=== PATIENT | male | born 1985 | race Caucasian/White ===

== ENCOUNTER 2020-02-14 15:47 | Inpatient (IN) | payer OTHER ==
[~2020-02-14] VITALS: Ht 182.9 cm; Wt 113.9 kg
[~2020-02-14 15:47] MED LIST: AMLO2.5T2; DIVA250T; GLIP5TAB13; LEVE1000 PO; PHEN100C4 PO; SYMBICORT
[2020-02-14 15:50] VITALS: BP_SYST 132
[2020-02-14] MEDS ORDERED: levETIRAcetam 1,000 MG in NS 100 ML IV ONE (16:15)
[2020-02-14 16:41] LABS: BASOPHILS # (AUTO) 0.1 K/uL (0.0-0.2); BASOPHILS % (AUTO) 1.4 % (0.0-2.0); EOSINOPHILS # (AUTO) 0.1 K/uL (0.0-0.4); EOSINOPHILS % (AUTO) 2.2 % (0.0-4.0); HEMATOCRIT 44.2 % (36-54); HEMOGLOBIN 14.9 g/dL (14.0-18.0); LYMPHOCYTES # (AUTO) 3.4 K/uL (1.0-5.5); LYMPHOCYTES % (AUTO) 53.5 % (20.5-51.5); MEAN CORPUSCULAR HEMOGLOBIN 29 pg (27-31); MEAN CORPUSCULAR HGB CONC 34 % (32-36); MEAN CORPUSCULAR VOLUME 87 fL (79.0-98.0); MONOCYTES # (AUTO) 0.4 K/uL (0.0-1.0); NEUTROPHILS # (AUTO) 2.3 K/uL (1.8-7.7); NEUTROPHILS % (AUTO) 35.9 % (40.0-70.0); PLATELET COUNT (AUTO) 295 K/uL (130-430); RED BLOOD CELL COUNT(AUTO) 5.07 MIL/uL (4.2-6.2); RED CELL DISTRIBUTION WIDTH 13.4 % (9.0-15.0); WHITE BLOOD COUNT (AUTO) 6.4 K/uL (4.8-10.8)
[2020-02-14 16:43] LABS: CALCIUM 8.9 mg/dL (8.4-11.0); CREATININE 0.92 mg/dL (0.55-1.30); POTASSIUM 3.7 mmol/L (3.5-5.1)
[2020-02-14] MEDS ORDERED: LORazepam 2 MG/ML VIAL IVP ONE (16:45)
[2020-02-14] MEDS ORDERED: ONDANSETRON HCL 4 MG/2 ML VIAL IVP ONE (16:45)
[2020-02-14 16:49] LABS: ALBUMIN 3.7 g/dL (3.4-4.8); TOTAL BILIRUBIN 0.3 mg/dL (0.0-1.0)
[2020-02-14] MEDS ORDERED: NACL 0.9% 1,000 ML IV SCH (18:59)
[2020-02-14] MEDS ORDERED: ONDANSETRON HCL 4 MG/2 ML VIAL IVP PRN (19:00)
[2020-02-14] MEDS ORDERED: HYDROcodone/ACETAMIN 5-325 MG TAB (NORCO/ VICODIN) PO PRN (19:00)
[2020-02-14] MEDS ORDERED: LORazepam 2 MG/ML VIAL IM PRN (19:15)
[2020-02-14] MEDS ORDERED: INSULIN REGULAR, HUMAN 100 UNITS/ML, 10 ML VIAL (humuLIN R) SUBCUT PRN (19:15)
[2020-02-14] MEDS ORDERED: D5W 1,000 ML IV PRN (19:30)
[2020-02-14] MEDS ORDERED: DEXTROSE 50%-WATER 50 ML DISP.SYRIN IVP PRN (19:30)
[2020-02-14] MEDS ORDERED: GLUCOSE 15 GM GEL (in 37.5 GM TUBE) PO PRN (19:30)
[2020-02-14] MEDS ORDERED: PHENYTOIN 100 MG CAPSULE PO SCH (21:00)
[2020-02-14 22:31] VITALS: BP_SYST 137
[2020-02-15] MEDS ORDERED: amLODIPine BESYLATE 5 MG TABLET PO SCH (09:00)
[2020-02-15] MEDS ORDERED: levETIRAcetam 500 MG TABLET PO SCH (09:00)
== END 2020-02-14 22:45 | disposition left against medical advice (07) | DRG 101 ==
LOC: SED 15:47 → STU 17:44
PROVIDERS: ADMIT Internal Medicine Hospice and Palliative Medicine; ATTEND Internal Medicine Hospice and Palliative Medicine
DX: G40.909 Epilepsy, unspecified, not intractable, without status epilepticus (principal); R07.89 Other chest pain; E11.9 Type 2 diabetes mellitus without complications; J45.909 Unspecified asthma, uncomplicated; K21.9 Gastro-esophageal reflux disease without esophagitis; E03.9 Hypothyroidism, unspecified; Z53.29 Procedure and treatment not carried out because of patient's decision for other reasons; Z88.0 Allergy status to penicillin; Z88.1 Allergy status to other antibiotic agents; Z88.8 Allergy status to other drugs, medicaments and biological substances; Z79.899 Other long term (current) drug therapy
CPT/HCPCS: 36415; 80053; 85025; 93005; 96365; 96367; 96375; 99291; G0378; J1815; J1953; J2060; J2405; J7030

== ENCOUNTER 2020-02-18 05:37 | Emergency (ER) | payer OTHER ==
[~2020-02-18] VITALS: Ht 185.4 cm; Wt 83.9 kg
[2020-02-18 05:56] VITALS: BP_SYST 154
--- NOTE | 2020-02-18 05:56 | NUR ---
Patient to ER bed 03 to gown for evaluation. Side rails up. Report given to GLORIA COX
--- NOTE | 2020-02-18 06:08 | NUR ---
Dr. Barraza bedside for pt eval
--- NOTE | 2020-02-18 06:12 | NUR ---
Pt BIB family to ED C/O DIFFUSE ABDOMINAL PAIN STARTING LAST NIGHT REPORTS HX OF CHROHNS. No other complaints noted VSS no s/s of acute distress Resting on gurney rails up
--- NOTE | 2020-02-18 06:47 | NUR ---
Pt taken to Radiology in stable condition
[2020-02-18] MEDS ORDERED: NACL 0.9% 1,000 ML IV ONE (07:00)
--- NOTE | 2020-02-18 07:00 | NUR ---
Pt back from radiology well tolerated
[2020-02-18 08:02] LABS: EOSINOPHILS # (AUTO) 0.1 K/uL (0.0-0.4); EOSINOPHILS % (AUTO) 2.5 % (0.0-4.0); HEMOGLOBIN 14.8 g/dL (14.0-18.0); LYMPHOCYTES # (AUTO) 1.7 K/uL (1.0-5.5); LYMPHOCYTES % (AUTO) 36.6 % (20.5-51.5); MEAN CORPUSCULAR HEMOGLOBIN 30 pg (27-31); MEAN CORPUSCULAR HGB CONC 35 % (32-36); MEAN CORPUSCULAR VOLUME 86 fL (79.0-98.0); MONOCYTES # (AUTO) 0.3 K/uL (0.0-1.0); MONOCYTES % (AUTO) 7.4 % (1.7-9.3); NEUTROPHILS # (AUTO) 2.4 K/uL (1.8-7.7); NEUTROPHILS % (AUTO) 52.5 % (40.0-70.0); PLATELET COUNT (AUTO) 249 K/uL (130-430); RED BLOOD CELL COUNT(AUTO) 4.88 MIL/uL (4.2-6.2); RED CELL DISTRIBUTION WIDTH 13.2 % (9.0-15.0); WHITE BLOOD COUNT (AUTO) 4.5 K/uL (4.8-10.8)
[2020-02-18 08:22] LABS: PROTHROMBIN TIME 9.8 SECS (9.5-12.5)
[2020-02-18 08:34] LABS: CALCIUM 9.7 mg/dL (8.4-11.0); CREATININE 0.78 mg/dL (0.55-1.30); POTASSIUM 3.6 mmol/L (3.5-5.1)
[2020-02-18 08:40] LABS: ALBUMIN 3.6 g/dL (3.4-4.8); TOTAL BILIRUBIN 0.3 mg/dL (0.0-1.0)
--- NOTE | 2020-02-18 08:40 | NUR ---
Pt resting in [facility] at this time, receiving IV fluids.
[2020-02-18] MEDS ORDERED: MORPHINE 4 MG/ML INJ. SYRINGE IVP ONE (09:00)
[2020-02-18 10:29] VITALS: BP_SYST 143
--- NOTE | 2020-02-18 10:30 | NUR ---
Patient given written and verbal discharge instructions and verbalizes understanding. ER MD discussed with patient the results and treatment provided. Patient in stable condition. ID arm band removed. IV catheter removed intact and dressing applied, no active bleeding. Rx of norco, prednisone, motrin given. Patient educated on pain management and to follow up with PMD. Pain Scale 0. Opportunity for questions provided and answered. Medication side effect fact sheet provided.
== END 2020-02-18 10:29 | disposition home or self-care (01) ==
LOC: SED 05:37
DX: K50.90 Crohn's disease, unspecified, without complications (principal); R10.9 Unspecified abdominal pain; R19.7 Diarrhea, unspecified; E11.9 Type 2 diabetes mellitus without complications; E03.9 Hypothyroidism, unspecified; J45.909 Unspecified asthma, uncomplicated; K21.9 Gastro-esophageal reflux disease without esophagitis; Z88.0 Allergy status to penicillin; Z88.1 Allergy status to other antibiotic agents
CPT/HCPCS: 36415; 74176; 80053; 82150; 83690; 85025; 85610; 96361; 96374; 99284; J2270; J7030

== ENCOUNTER 2020-06-11 05:03 | Inpatient (IN) | payer OTHER, SELFPAY ==
[~2020-06-11] VITALS: Ht 195.6 cm; Wt 99.8 kg
[2020-06-11 05:03] VITALS: BP_SYST 166
[~2020-06-11 05:03] MED LIST changes: +LEVE500T9 PO; +LOSA100T23 PO; +METO25TA6 PO; +NOR10 PO
--- NOTE | 2020-06-11 05:10 | NUR ---
Patient to ER bed 1 to gown for evaluation. Side rails up.
--- NOTE | 2020-06-11 05:11 | NUR ---
Seizure precautions in place. Seizure pads applied to gurney. Side rails up.
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
--- NOTE | 2020-06-11 05:12 | NUR ---
ER Dr. Barraza at bedside examining patient.
[2020-06-11] MEDS ORDERED: NACL 0.9% 1,000 ML IV ONE (05:15)
--- NOTE | 2020-06-11 05:20 | NUR ---
# 20 gauge angiocath placed to LADC. Use of asceptic technique. Opsite placed over site. Blood return noted. Blood, blood cultures, lactic for lab drawn from site. Flushed with 10 cc of normal saline. No evidence of infiltration noted. Patient tolerated well.
--- NOTE | 2020-06-11 05:28 | NUR ---
patient experienced witnessed tonic clonic seizure for about 30 seconds long. aware. pt turned to side immediately. pt began dry heiving afterwards, and was suctioned. pt on NRB at 16L O2 with O2 sat of 100%.
[2020-06-11 05:34] LABS: BASOPHILS # (AUTO) 0.2 K/uL (0.0-0.2); BASOPHILS % (AUTO) 3.2 % (0.0-2.0); EOSINOPHILS # (AUTO) 0.2 K/uL (0.0-0.4); EOSINOPHILS % (AUTO) 4.4 % (0.0-4.0); HEMATOCRIT 43.6 % (36-54); LYMPHOCYTES # (AUTO) 2.5 K/uL (1.0-5.5); LYMPHOCYTES % (AUTO) 49.3 % (20.5-51.5); MEAN CORPUSCULAR HEMOGLOBIN 30 pg (27-31); MEAN CORPUSCULAR HGB CONC 35 % (32-36); MEAN CORPUSCULAR VOLUME 87 fL (79.0-98.0); MONOCYTES # (AUTO) 0.4 K/uL (0.0-1.0); MONOCYTES % (AUTO) 7.6 % (1.7-9.3); NEUTROPHILS # (AUTO) 1.8 K/uL (1.8-7.7); NEUTROPHILS % (AUTO) 35.5 % (40.0-70.0); PLATELET COUNT (AUTO) 292 K/uL (130-430); RED BLOOD CELL COUNT(AUTO) 5.01 MIL/uL (4.2-6.2); RED CELL DISTRIBUTION WIDTH 13.6 % (9.0-15.0); WHITE BLOOD COUNT (AUTO) 5.1 K/uL (4.8-10.8)
--- NOTE | 2020-06-11 05:38 | NUR ---
patient experienced second witnessed tonic clonic seizure for about 30 seconds long. aware. pt turned to side immediately. pt on NRB at 16L O2 with O2 sat of 98%.
--- NOTE | 2020-06-11 05:40 | NUR ---
1mg ativan IVP given per md order.
[2020-06-11 05:44] LABS: ANION GAP 10 (5-15); CALCIUM 8.9 mg/dL (8.4-11.0); CHLORIDE 100 mmol/L (98-107); CREATININE 0.82 mg/dL (0.55-1.30); GLUCOSE 96 mg/dL (70-99); POTASSIUM 3.9 mmol/L (3.5-5.1); SODIUM SERUM 138 mmol/L (136-145); UREA NITROGEN, BLOOD 12 mg/dL (8-21)
[2020-06-11 05:45] LABS: GFR AFRICAN AMERICAN 140 mL/min (>90)
[2020-06-11] MEDS ORDERED: levETIRAcetam 1,000 MG in NS 100 ML IV ONE (05:45)
--- NOTE | 2020-06-11 05:46 | NUR ---
patient experienced third witnessed tonic clonic seizure for about 15 seconds long. aware. pt turned to side immediately. pt on NRB at 16L O2 with O2 sat of 99%.
[2020-06-11 05:53] LABS: ALANINE AMINOTRANSFERASE 101 U/L (12-78); ALBUMIN 4.2 g/dL (3.4-4.8); ALCOHOL, BLOOD 238 mg/dL (<10); ASPARTATE AMINOTRANSFERASE 53 U/L (10-37); TOTAL BILIRUBIN 0.3 mg/dL (0.0-1.0)
--- NOTE | 2020-06-11 05:54 | NUR ---
patient experienced witnessed fourth tonic clonic seizure for about 60 seconds long. aware. pt turned to side immediately. pt on NRB at 16L O2 with O2 sat of 100%.
[2020-06-11] MEDS ORDERED: LORazepam 2 MG/ML VIAL ONE (05:59)
[2020-06-11] MEDS ORDERED: LORazepam 2 MG/ML VIAL IVP ONE ×2 (06:00→06:30)
[2020-06-11] MEDS ORDERED: DIAZEPAM 10 MG/2 ML DISP.SYRIN IVP ONE (06:00)
--- NOTE | 2020-06-11 06:26 | NUR ---
checked every pyxis in the hospital, no Valium 10mg/2ml available. aware.
--- NOTE | 2020-06-11 06:27 | NUR ---
radiology at bedside for chest xray.
--- NOTE | 2020-06-11 06:43 | NUR ---
pt verbalized wanting to pee in urinal. pt still drowsy and in and out of sleep.
--- NOTE | 2020-06-11 06:50 | NUR ---
Patient transported to radiology via gurney, accompanied by 2 RNS and
--- NOTE | 2020-06-11 06:59 | NUR ---
patient experienced fifth witnessed tonic clonic seizure for about 30 seconds long. MD aware. pt turned to side immediately.
--- NOTE | 2020-06-11 07:02 | NUR ---
4mg Ativan given IVP per MD order.
--- NOTE | 2020-06-11 07:06 | NUR ---
patient experienced sixth witnessed tonic clonic seizure for about 15 seconds long. MD aware. pt turned to side immediately.
--- NOTE | 2020-06-11 07:20 | NUR ---
patient returned from radiology. placed on poultry offal worker.
--- NOTE | 2020-06-11 07:20 | NUR ---
Report received from Emma CASTRO. Pt just returned from CT scan,
--- NOTE | 2020-06-11 07:23 | NUR ---
report given to GLORIA Wilkins for continuation care.
--- NOTE | 2020-06-11 07:30 | NUR ---
# 22 gauge angiocath placed to right index finger. Use of asceptic technique. Opsite placed over site. Blood return noted. Blood for lab drawn from site. Flushed with 10 cc of normal saline. No evidence of infiltration noted. Patient tolerated well.
[2020-06-11 07:52] LABS: BILIRUBIN,URINE NEGATIVE (NEGATIVE); BLOOD, URINE NEGATIVE (NEGATIVE); CLARITY/URINE CLEAR (CLEAR); COLOR,URINE YELLOW (YELLOW); GLUCOSE,URINE NEGATIVE (NEGATIVE); KETONES,URINE NEGATIVE (NEGATIVE); LEUKOCYTE ESTERASE ,URINE NEGATIVE (NEGATIVE); NITRITE, URINE NEGATIVE (NEGATIVE); PH,URINE 5.5 (5.0-8.0); PROTEIN URINE NEGATIVE (NEGATIVE); UROBILINOGEN,URINE 0.2 (0.2-1.0)
[2020-06-11 08:07] LABS: BARBITURATE, URINE NEGATIVE (NEG <=200); BENZODIAZEPINE, URINE POSITIVE (NEG <=150); CANNABINOID, URINE NEGATIVE (NEG <=50); COCAINE, URINE NEGATIVE (NEG <=150); METHAMPHETAMINES SCREEN,URINE NEGATIVE (NEG <=500); OPIATE, URINE NEGATIVE (NEG <=100); PHENCYCLIDINE SCREEN,URINE NEGATIVE (NEG <=25); UR TRICYCLIC ANTIDEPRESSANTS NEGATIVE (NEG <=300); URINE AMPHETAMINE NEGATIVE (NEG <=500); URINE METHADONE NEGATIVE (NEG <=200); URINE OXYCODONE SCREEN NEGATIVE (NEG <=100); URINE PROPOXYPHENE SCREEN NEGATIVE (NEG <=300)
--- NOTE | 2020-06-11 08:10 | NUR ---
Covid swab collected and sent to the lab
--- NOTE | 2020-06-11 09:19 | NUR ---
Medication reconciliation completed with information provided by pt's medical record. Any prior medication reconciliation on file was reviewed and corrected.
[2020-06-11] MEDS ORDERED: FOLIC ACID 1 MG, THIAMINE HCL 100 MG, MAGNESIUM SULFATE 1 GM, MVI 10 ML in NACL 0.9% 1,... IV ONE (11:15)
[2020-06-11] MEDS ORDERED: LORazepam 2 MG/ML VIAL IVP PRN ×3 (11:15→17:15)
--- NOTE | 2020-06-11 11:20 | NUR ---
called for a tele bed, waiting a bed assignment.
--- NOTE | 2020-06-11 12:27 | NUR ---
Patient will be admitted to care of Dr. Walker. Admitted to tele unit. Will go to room 106-a. Belongings list completed. Complete and up to date summary report printed. SBAR report to be given at bedside with opportunity for questions. Bedside report to be given. IV 20g LAC and 22g R index finger patent and infusing well.
--- NOTE | 2020-06-11 12:46 | NUR ---
Admission Note Received patient from ER with diagnosis of etoh,intoxicationaloc,uncontrolled seizures. Initial Plan of Care discussed-patient verbalized understanding. Oriented to room, call light, pain management and safety.
[2020-06-11 12:52] VITALS: BP_SYST 141
[2020-06-11 12:55] VITALS: BP_SYST 128; BP_SYST 141
[2020-06-11] MEDS ORDERED: FOLIC ACID 1 MG, MVI 10 ML in NACL 0.9% 1,000 ML IV ONE (13:00)
[2020-06-11] MEDS ORDERED: THIAMINE HCL 100 MG, MAGNESIUM SULFATE 1 GM in NS 100 ML IV ONE (13:00)
--- NOTE | 2020-06-11 13:02 | NUR ---
seizure pt experienced witnessed tonic clonic seizure last about 40 sec. pt turned to side. seizure pads in placed. Ativan 1 mg ivp given as ordered. o2 saturation 98%.will continue to monitor
--- NOTE | 2020-06-11 13:09 | NUR ---
pt drowsy responding to verbal stimuli.o2 sat 99% on 4 l nc.bp 144/78.pt stated i am tired. not in acute distress. will continue to monmitor
--- NOTE | 2020-06-11 14:20 | NUR ---
seizure another seizure witnessed last around 45 sec. pt turned .to side. not in acute distress. o2 saturation 96% on 4 lnc.rodney continue to monitor
--- NOTE | 2020-06-11 14:22 | NUR ---
pt sleeping drowsy easily aroused. ivf infusing well. no seizure activity noted. o2 saturation 96%.seizure precautions in place. pt received ativan 1302. noticed ativan order for every [address] higuera for ativan order
--- NOTE | 2020-06-11 14:27 | NUR ---
PAGED DR JUANY LAST SPOKE TO JANE
--- NOTE | 2020-06-11 14:52 | NUR ---
rounds pt stable not in acute distress. no seizure activity noted. resting comfortably. dr higuera informed for pt'S seizure activity. new order received
--- NOTE | 2020-06-11 14:57 | NUR ---
HIGH ALERT NOTE: Called Dr. higuera back at [phone] within the medical roster to verify physician authenticity.
[2020-06-11] MEDS ORDERED: ONDANSETRON HCL 4 MG/2 ML VIAL IVP PRN (15:15)
[2020-06-11] MEDS ORDERED: chlordiazePOXIDE HCL 25 MG CAPSULE PO ONE (15:15)
[2020-06-11] MEDS ORDERED: PANTOPRAZOLE SODIUM 40 MG/VIAL (PROTONIX) IVP ONE (15:15)
[2020-06-11] MEDS ORDERED: KCL 20 mEq in D5/0.45NS 1000mL 1,000 ML IV SCH (15:15)
--- NOTE | 2020-06-11 15:27 | NUR ---
CONSULT NEUROLOGY SEIZURES CASEY SHAIKH TEXT MESSAGE SENT TO DR PENG
[2020-06-11 15:37] VITALS: BP_SYST 141
--- NOTE | 2020-06-11 15:57 | NUR ---
HIGH ALERT NOTE: Called Dr. kalen magallon [phone] identified within the medical roster to verify physician authenticity. Addendum: 06/11/20 at 1618 by Elizabeth Martinez RN above notes for 1457 06/11/20
[2020-06-11] MEDS ORDERED: cefTRIAXone 1 GM in D5W 50 ML IV SCH (16:00)
[2020-06-11 16:10] VITALS: BP_SYST 128
--- NOTE | 2020-06-11 17:10 | NUR ---
AMA: Patient does not wish to proceed with medical care recommended by Dr Walker and would like to leave without being seen by the physician. patient stated he feels a lot better . Patient given information related to possible complications, up to and including , which could occur as a result of leaving hospital at this time. Patient verbalizes understanding of risks involved leaving against medical advice. Patient has signed AMA form.
[2020-06-11] MEDS ORDERED: ALBUTEROL SULFATE 0.083% 2.5 MG/3 ML VIAL.NEB INH SCH (19:00)
[2020-06-11] MEDS ORDERED: chlordiazePOXIDE HCL 25 MG CAPSULE PO SCH (21:00)
[2020-06-12] MEDS ORDERED: PANTOPRAZOLE SODIUM 40 MG/VIAL (PROTONIX) IVP SCH (09:00)
== END 2020-06-11 17:07 | disposition left against medical advice (07) | DRG 101 ==
LOC: SED 05:03 → MERGE 11:15 → STU 11:15
PROVIDERS: ADMIT Internal Medicine; ATTEND Internal Medicine
DX: G40.901 Epilepsy, unspecified, not intractable, with status epilepticus (principal); I10 Essential (primary) hypertension; Z20.828 Contact with and (suspected) exposure to other viral communicable diseases; Z53.29 Procedure and treatment not carried out because of patient's decision for other reasons; Z88.0 Allergy status to penicillin; Z91.018 Allergy to other foods; Z79.899 Other long term (current) drug therapy
CPT/HCPCS: 36415; 70450-TC; 71045; 72125-TC; 80053; 80307; 81003; 84484; 85025; 87040-TC; 94760; 96361; 96365; 96375; 99285; G0378; G0482; J0696; J1953; J2060; J3411; J3475; J3490; J7030; J7060; J7613

== ENCOUNTER 2020-06-29 01:28 | Emergency (ER) | payer OTHER, SELFPAY ==
[~2020-06-29] VITALS: Ht 185.4 cm; Wt 117.9 kg
[2020-06-29 01:28] VITALS: BP_SYST 150
--- NOTE | 2020-06-29 01:30 | NUR ---
Patient to ER bed 6 to gown for evaluation. Side rails up.
--- NOTE | 2020-06-29 01:50 | NUR ---
Dr. [facility] for pt eval
--- NOTE | 2020-06-29 02:00 | NUR ---
Pt ALOKA to ED with history of alcohol dependence who presents emergency department because of altered mental status. Apparently, patient was found at the [employer] seizing multiple times. Patient denies taking his antiepileptic medications
[2020-06-29] MEDS ORDERED: NACL 0.9% 3,000 ML IV ONE (02:15)
[2020-06-29 02:58] LABS: BASOPHILS # (AUTO) 0.1 K/uL (0.0-0.2); BASOPHILS % (AUTO) 0.9 % (0.0-2.0); EOSINOPHILS # (AUTO) 0.2 K/uL (0.0-0.4); EOSINOPHILS % (AUTO) 2.6 % (0.0-4.0); HEMATOCRIT 40.6 % (36-54); HEMOGLOBIN 13.6 g/dL (14.0-18.0); LYMPHOCYTES # (AUTO) 2.9 K/uL (1.0-5.5); LYMPHOCYTES % (AUTO) 45.6 % (20.5-51.5); MEAN CORPUSCULAR HEMOGLOBIN 29 pg (27-31); MEAN CORPUSCULAR HGB CONC 34 % (32-36); MEAN CORPUSCULAR VOLUME 87 fL (79.0-98.0); MONOCYTES # (AUTO) 0.5 K/uL (0.0-1.0); MONOCYTES % (AUTO) 7.2 % (1.7-9.3); NEUTROPHILS # (AUTO) 2.7 K/uL (1.8-7.7); NEUTROPHILS % (AUTO) 43.7 % (40.0-70.0); PLATELET COUNT (AUTO) 335 K/uL (130-430); RED BLOOD CELL COUNT(AUTO) 4.65 MIL/uL (4.2-6.2); RED CELL DISTRIBUTION WIDTH 13.8 % (9.0-15.0); WHITE BLOOD COUNT (AUTO) 6.3 K/uL (4.8-10.8)
[2020-06-29] MEDS ORDERED: ACETAMINOPHEN 500 MG TABLET PO ONE (03:00)
--- NOTE | 2020-06-29 03:00 | NUR ---
VSS no s/s of acute distress Resting on gurney rails up
[2020-06-29 03:14] LABS: CALCIUM 8.9 mg/dL (8.4-11.0); CREATININE 0.84 mg/dL (0.55-1.30); POTASSIUM 3.6 mmol/L (3.5-5.1)
[2020-06-29 03:21] LABS: ALBUMIN 3.8 g/dL (3.4-4.8); TOTAL BILIRUBIN 0.1 mg/dL (0.0-1.0)
[2020-06-29] MEDS ORDERED: levETIRAcetam 500 MG TABLET PO ONE (04:00)
[2020-06-29 04:15] VITALS: BP_SYST 150
--- NOTE | 2020-06-29 04:15 | NUR ---
Patient given written and verbal discharge instructions and verbalizes understanding. ER MD discussed with patient the results and treatment provided. Patient in stable condition. ID arm band removed. IV catheter removed intact and dressing applied, no active bleeding. Rx of Keppra given. Patient educated on pain management and to follow up with PMD. Pain Scale 0/10 Opportunity for questions provided and answered. Medication side effect fact sheet provided.
[2020-06-29] MEDS ORDERED: LORazepam 1 MG TABLET PO ONE (04:45)
== END 2020-06-29 04:15 | disposition home or self-care (01) ==
LOC: SED 01:28
DX: F10.129 Alcohol abuse with intoxication, unspecified (principal); I10 Essential (primary) hypertension; E11.9 Type 2 diabetes mellitus without complications; K21.9 Gastro-esophageal reflux disease without esophagitis; E03.9 Hypothyroidism, unspecified; J45.909 Unspecified asthma, uncomplicated; Z71.6 Tobacco abuse counseling; Z79.899 Other long term (current) drug therapy; Z88.0 Allergy status to penicillin; Z88.1 Allergy status to other antibiotic agents; Z91.018 Allergy to other foods
CPT/HCPCS: 36415; 80053; 85025; 96360; 99284; G0482; J7030

== ENCOUNTER 2020-07-23 14:01 | Emergency (ER) | payer OTHER, SELFPAY ==
[~2020-07-23] VITALS: Ht 182.9 cm; Wt 90.7 kg
[2020-07-23 14:01] VITALS: BP_SYST 142
--- NOTE | 2020-07-23 14:01 | NUR ---
Patient triaged and placed on wall. VSS and patient appears in no acute distress at this time. Accompanied by assembler small products, awaiting available bed, and MD notified of need for MSE.
[2020-07-23] MEDS ORDERED: LORazepam 2 MG/ML VIAL ONE (14:11)
[2020-07-23] MEDS ORDERED: LORazepam 2 MG/ML VIAL IVP ONE (14:15)
--- NOTE | 2020-07-23 14:15 | NUR ---
Patient to ER bed 7 to gown for evaluation. Side rails up. Report given to GLORIA Watt.
--- NOTE | 2020-07-23 14:15 | NUR ---
WHILE WAITING IN ER SEIZURE ACTIVITY ON MEDICHardeep GAMBOAJARED. PLACED IN ROOM 7 ON MONITOR. RECOVED AND ALERT. NO DISTRESS
--- NOTE | 2020-07-23 14:38 | NUR ---
OFF TO CT. STEADY GAIT, NO DISTRESS
[2020-07-23 14:39] LABS: BASOPHILS # (AUTO) 0.1 K/uL (0.0-0.2); BASOPHILS % (AUTO) 1.3 % (0.0-2.0); EOSINOPHILS # (AUTO) 0.2 K/uL (0.0-0.4); EOSINOPHILS % (AUTO) 3.5 % (0.0-4.0); HEMATOCRIT 40.5 % (36-54); HEMOGLOBIN 13.9 g/dL (14.0-18.0); LYMPHOCYTES # (AUTO) 2.5 K/uL (1.0-5.5); LYMPHOCYTES % (AUTO) 41.8 % (20.5-51.5); MEAN CORPUSCULAR HEMOGLOBIN 30 pg (27-31); MEAN CORPUSCULAR HGB CONC 34 % (32-36); MEAN CORPUSCULAR VOLUME 88 fL (79.0-98.0); MONOCYTES # (AUTO) 0.5 K/uL (0.0-1.0); MONOCYTES % (AUTO) 8.1 % (1.7-9.3); NEUTROPHILS # (AUTO) 2.7 K/uL (1.8-7.7); NEUTROPHILS % (AUTO) 45.3 % (40.0-70.0); PLATELET COUNT (AUTO) 344 K/uL (130-430); RED BLOOD CELL COUNT(AUTO) 4.61 MIL/uL (4.2-6.2); RED CELL DISTRIBUTION WIDTH 14.1 % (9.0-15.0); WHITE BLOOD COUNT (AUTO) 5.9 K/uL (4.8-10.8)
[2020-07-23 14:54] LABS: CREATININE 0.92 mg/dL (0.55-1.30); POTASSIUM 3.6 mmol/L (3.5-5.1)
[2020-07-23 15:09] LABS: TOTAL BILIRUBIN 0.2 mg/dL (0.0-1.0)
[2020-07-23] MEDS ORDERED: LORA-259 PO (15:37)
--- NOTE | 2020-07-23 16:33 | NUR ---
PT CALM, ALERT, NO DITREASS. EASILY AROUSED, SR ON MONITOR NO ECTOPY
[2020-07-23 17:20] VITALS: BP_SYST 109
--- NOTE | 2020-07-23 17:21 | NUR ---
Patient given written and verbal discharge instructions and verbalizes understanding. ER MD discussed with patient the results and treatment provided. Patient in stable condition. ID arm band removed. IV catheter removed intact and dressing applied, no active bleeding. Patient educated on pain management and to follow up with PMD. Pain Scale . Opportunity for questions provided and answered. Medication side effect fact sheet provided.
== END 2020-07-23 17:20 | disposition home or self-care (01) ==
LOC: SED 14:01
DX: G40.909 Epilepsy, unspecified, not intractable, without status epilepticus (principal); I10 Essential (primary) hypertension; E11.9 Type 2 diabetes mellitus without complications; J45.909 Unspecified asthma, uncomplicated; K21.9 Gastro-esophageal reflux disease without esophagitis; E03.9 Hypothyroidism, unspecified; Z79.899 Other long term (current) drug therapy; Z88.0 Allergy status to penicillin; Z88.1 Allergy status to other antibiotic agents; Z91.018 Allergy to other foods
CPT/HCPCS: 36415; 80053; 85025; 96374; 99291; J2060

== ENCOUNTER 2020-08-22 05:05 | Emergency (ER) | payer MEDICAID, SELFPAY ==
[~2020-08-22] VITALS: Ht 182.9 cm; Wt 90.7 kg
[2020-08-22 05:05] VITALS: BP_SYST 150
[~2020-08-22 05:05] MED LIST changes: +LORA-259 PO
--- NOTE | 2020-08-22 05:05 | NUR ---
Pt BIB ALS r/t seizure episode. Pt was found on the ground outside of his hotel in a post ictal state. Upon arrival, ALS agreed to keep pt in rig until COVID-Aura antigen test results are released for proper placement of pt in ER. Pt AAOx3, even and non-labored respirations, no seizure activity observed at this time. Pt in stable condition, on stretcher in ambulance with squad 64 crew.
--- NOTE | 2020-08-22 05:15 | NUR ---
While attempting PIV access, pt experienced a Grand-Mal seizure activity lasting ~2 minutes.
[2020-08-22] MEDS ORDERED: LORazepam 2 MG/ML VIAL ONE ×2 (05:32→06:27)
[2020-08-22] MEDS ORDERED: LORazepam 2 MG/ML VIAL IM ONE (05:35)
--- NOTE | 2020-08-22 05:35 | NUR ---
Pt given Ativan 1 mg IM to right deltoid per order of Dr. Barraza.
--- NOTE | 2020-08-22 05:45 | NUR ---
# 20 gauge angiocath placed to RFA. Use of asceptic technique. Opsite placed over site. Blood return noted. Blood for lab drawn from site. Flushed with 10 cc of normal saline. No evidence of infiltration noted. Patient tolerated well.
--- NOTE | 2020-08-22 05:47 | NUR ---
Pt experienced Grand Mal seizure lasting ~ 1 min.
--- NOTE | 2020-08-22 06:00 | NUR ---
Pt placed to ER hallway 1, to campus monitor, supplemental O2 at 2 LPM/SFM. Pt resting quietly in post-ictal state.
--- NOTE | 2020-08-22 06:05 | NUR ---
Seizure precautions in effect with seizure pads to side rails. Side rails up x 2, bed in lowest position.
--- NOTE | 2020-08-22 06:10 | NUR ---
Ene Golden, friend of family, called to check on pt. She informed staff that pt was discharged from [facility] on 08/17/20 and experienced "11 Grand Mal Seizures" while there. Ene states that staff may call her at ([phone]).
--- NOTE | 2020-08-22 06:15 | NUR ---
Pt resting quietly, no seizure activity noted.
[2020-08-22] MEDS ORDERED: LORazepam 2 MG/ML VIAL IVP ONE (06:30)
--- NOTE | 2020-08-22 06:30 | NUR ---
Grand-Mal seizure lasting ~ 1 minute. Ativan 1 mg given IVP.
[2020-08-22 06:35] LABS: CALCIUM 8.9 mg/dL (8.4-11.0); CREATININE 0.89 mg/dL (0.55-1.30); POTASSIUM 3.2 mmol/L (3.5-5.1)
[2020-08-22 06:41] LABS: ALBUMIN 3.9 g/dL (3.4-4.8); TOTAL BILIRUBIN 0.3 mg/dL (0.0-1.0)
[2020-08-22 06:43] LABS: BASOPHILS % (AUTO) 0.8 % (0.0-2.0); EOSINOPHILS # (AUTO) 0.2 K/uL (0.0-0.4); EOSINOPHILS % (AUTO) 2.9 % (0.0-4.0); HEMATOCRIT 43.3 % (36-54); LYMPHOCYTES # (AUTO) 2.4 K/uL (1.0-5.5); LYMPHOCYTES % (AUTO) 38.5 % (20.5-51.5); MEAN CORPUSCULAR HEMOGLOBIN 30 pg (27-31); MEAN CORPUSCULAR HGB CONC 35 % (32-36); MEAN CORPUSCULAR VOLUME 87 fL (79.0-98.0); MONOCYTES # (AUTO) 0.5 K/uL (0.0-1.0); MONOCYTES % (AUTO) 8.2 % (1.7-9.3); NEUTROPHILS % (AUTO) 49.6 % (40.0-70.0); PLATELET COUNT (AUTO) 310 K/uL (130-430); RED BLOOD CELL COUNT(AUTO) 4.96 MIL/uL (4.2-6.2); RED CELL DISTRIBUTION WIDTH 13.5 % (9.0-15.0); WHITE BLOOD COUNT (AUTO) 6.1 K/uL (4.8-10.8)
--- NOTE | 2020-08-22 06:50 | NUR ---
Pt resting quietly, even respirations, O2 at 10 LPM/NRFM, SPO2 98%. No further seizure activity noted.
--- NOTE | 2020-08-22 07:16 | NUR ---
Pt report given to GLORIA Rosado.
--- NOTE | 2020-08-22 07:20 | NUR ---
Assumed care of patient, report received from GLORIA Morales. Pt currently sleeping in [facility]. V/S stable, no distress noted.
[2020-08-22] MEDS ORDERED: levETIRAcetam 1,000 MG IV BAG 100 ML IV ONE (07:30)
--- NOTE | 2020-08-22 10:00 | NUR ---
Pt currently resting in bed, v/s stable, no distress noted.
[2020-08-22] MEDS ORDERED: ACETAMINOPHEN 500 MG TABLET PO ONE (10:45)
--- NOTE | 2020-08-22 11:30 | NUR ---
Patient given written and verbal discharge instructions and verbalizes understanding. ER MD discussed with patient the results and treatment provided. Patient in stable condition. ID arm band removed. IV catheter removed intact and dressing applied, no active bleeding. No prescriptions given. Patient educated on pain management and to follow up with PMD. Pain Scale 0. Opportunity for questions provided and answered. Medication side effect fact sheet provided.
[2020-08-22 19:15] VITALS: BP_SYST 150
== END 2020-08-22 10:00 | disposition home or self-care (01) ==
LOC: SED 05:05
DX: G40.909 Epilepsy, unspecified, not intractable, without status epilepticus (principal); I10 Essential (primary) hypertension; E11.9 Type 2 diabetes mellitus without complications; K21.9 Gastro-esophageal reflux disease without esophagitis; J45.909 Unspecified asthma, uncomplicated; E03.9 Hypothyroidism, unspecified; Z79.899 Other long term (current) drug therapy; Z88.0 Allergy status to penicillin; Z88.6 Allergy status to analgesic agent; Z91.018 Allergy to other foods; Z20.822 Contact with and (suspected) exposure to COVID-19
CPT/HCPCS: 36415; 80053; 80164; 82542; 82962; 85025; 87426; 96365; 96372; 96375; 99284; J1953; J2060

== ENCOUNTER 2020-08-26 22:55 | Emergency (ER) | payer MEDICAID, SELFPAY ==
[~2020-08-26] VITALS: Ht 182.9 cm; Wt 101.6 kg
[2020-08-26 22:55] VITALS: BP_SYST 131
[~2020-08-26 22:55] MED LIST changes: +LORazepam 2 MG/ML VIAL IM ONE
[2020-08-26] MEDS ORDERED: levETIRAcetam 1,000 MG in NS 90 ML IV ONE (23:15)
[2020-08-26 23:34] LABS: CREATININE 0.97 mg/dL (0.55-1.30); POTASSIUM 3.1 mmol/L (3.5-5.1)
[2020-08-26 23:40] LABS: TOTAL BILIRUBIN 0.3 mg/dL (0.0-1.0)
[2020-08-26] MEDS ORDERED: LORazepam 2 MG/ML VIAL ONE (23:40)
[2020-08-26] MEDS ORDERED: LORazepam 2 MG/ML VIAL IVP ONE (23:45)
[2020-08-27] MEDS ORDERED: NACL 0.9% 1,000 ML IV ONE (01:30)
[2020-08-27] MEDS ORDERED: BANANA BAG 1 EA, MVI 10 ML, THIAMINE HCL 100 MG, FOLIC ACID 1 MG, MAGNESIUM SULFATE 1 G... IV SCH ×5 (04:00)
[2020-08-27] MEDS ORDERED: THIAMINE HCL 100 MG/ML VIAL ONE (04:00)
[2020-08-27] MEDS ORDERED: FOLIC ACID 5 MG/ML VIAL IV ONE (04:02)
[2020-08-27] MEDS ORDERED: MAGNESIUM SULFATE 1 GM/2 ML VIAL ONE (04:02)
[2020-08-27] MEDS ORDERED: MVI 10 ML VIAL IV ONE (04:03)
[2020-08-27] MEDS ORDERED: ONDANSETRON HCL 4 MG/2 ML VIAL ONE (05:14)
[2020-08-27] MEDS ORDERED: ONDANSETRON HCL 4 MG/2 ML VIAL IVP ONE (05:15)
[2020-08-27] MEDS ORDERED: PHENYTOIN 100 MG CAPSULE ONE (05:35)
[2020-08-27] MEDS ORDERED: PHENYTOIN 100 MG CAPSULE PO ONE (05:45)
[2020-08-27 07:13] VITALS: BP_SYST 121
== END 2020-08-27 07:13 | disposition home or self-care (01) ==
LOC: SED 22:55
DX: G40.909 Epilepsy, unspecified, not intractable, without status epilepticus (principal); F10.129 Alcohol abuse with intoxication, unspecified; I10 Essential (primary) hypertension; E11.9 Type 2 diabetes mellitus without complications; K21.9 Gastro-esophageal reflux disease without esophagitis; E03.9 Hypothyroidism, unspecified; Z79.899 Other long term (current) drug therapy; Z88.0 Allergy status to penicillin; Z88.6 Allergy status to analgesic agent; Z91.018 Allergy to other foods
CPT/HCPCS: 36415; 80053; 96361; 96365; 96367; 96372; 96375 ×2; 99285; J1953; J2060; J2405; J3411; J3475; J3490; J7030

== ENCOUNTER 2020-08-31 01:08 | Emergency (ER) | payer MEDICAID, SELFPAY ==
[~2020-08-31] VITALS: Ht 182.9 cm; Wt 101.6 kg
[~2020-08-31 01:08] MED LIST changes: -LORazepam 2 MG/ML VIAL IM ONE
[2020-08-31 01:10] VITALS: BP_SYST 140
[2020-08-31] MEDS ORDERED: LORazepam 2 MG/ML VIAL ONE (01:26)
[2020-08-31] MEDS ORDERED: NACL 0.9% 1,000 ML IV ONE (01:30)
[2020-08-31] MEDS ORDERED: levETIRAcetam 1,000 MG IV BAG 100 ML IV ONE (01:30)
[2020-08-31] MEDS ORDERED: LORazepam 2 MG/ML VIAL IVP ONE (01:30)
[2020-08-31 01:36] LABS: BASOPHILS % (AUTO) 0.5 % (0.0-2.0); EOSINOPHILS # (AUTO) 0.2 K/uL (0.0-0.4); EOSINOPHILS % (AUTO) 3.2 % (0.0-4.0); HEMATOCRIT 45.7 % (36-54); HEMOGLOBIN 15.7 g/dL (14.0-18.0); LYMPHOCYTES # (AUTO) 3.1 K/uL (1.0-5.5); LYMPHOCYTES % (AUTO) 40.3 % (20.5-51.5); MEAN CORPUSCULAR HEMOGLOBIN 30 pg (27-31); MEAN CORPUSCULAR HGB CONC 34 % (32-36); MEAN CORPUSCULAR VOLUME 88 fL (79.0-98.0); MONOCYTES # (AUTO) 0.6 K/uL (0.0-1.0); MONOCYTES % (AUTO) 8.1 % (1.7-9.3); NEUTROPHILS # (AUTO) 3.6 K/uL (1.8-7.7); NEUTROPHILS % (AUTO) 47.9 % (40.0-70.0); PLATELET COUNT (AUTO) 283 K/uL (130-430); RED CELL DISTRIBUTION WIDTH 13.6 % (9.0-15.0); WHITE BLOOD COUNT (AUTO) 7.6 K/uL (4.8-10.8)
[2020-08-31 01:53] LABS: CALCIUM 9.5 mg/dL (8.4-11.0); CREATININE 0.71 mg/dL (0.55-1.30); POTASSIUM 3.6 mmol/L (3.5-5.1)
[2020-08-31 02:02] LABS: ALBUMIN 3.9 g/dL (3.4-4.8); TOTAL BILIRUBIN 0.2 mg/dL (0.0-1.0)
[2020-08-31] MEDS ORDERED: levETIRAcetam 1,000 MG in NS 90 ML IV ONE (02:15)
[2020-08-31] MEDS ORDERED: levETIRAcetam 500 MG IV PREMIX 100 ML IV ONE ×2 (02:30)
[2020-08-31 03:30] VITALS: BP_SYST 102
== END 2020-08-31 03:07 | disposition home or self-care (01) ==
LOC: SED 01:08
DX: F10.129 Alcohol abuse with intoxication, unspecified (principal); R56.9 Unspecified convulsions; I10 Essential (primary) hypertension; E11.9 Type 2 diabetes mellitus without complications; K21.9 Gastro-esophageal reflux disease without esophagitis; J45.909 Unspecified asthma, uncomplicated; E03.9 Hypothyroidism, unspecified; Z88.0 Allergy status to penicillin; Z88.1 Allergy status to other antibiotic agents; Z91.018 Allergy to other foods; Z79.899 Other long term (current) drug therapy; Y90.8 Blood alcohol level of 240 mg/100 ml or more
CPT/HCPCS: 36415; 80053; 85025; 96365; 96366; 96375; 99284; G0482; J1953 ×3; J2060; J7030

== ENCOUNTER 2020-09-05 04:15 | Emergency (ER) | payer MEDICAID ==
[~2020-09-05] VITALS: Ht 175.3 cm; Wt 86.2 kg
[2020-09-05 04:17] VITALS: BP_SYST 146
[2020-09-05] MEDS ORDERED: LORazepam 2 MG/ML VIAL ONE (04:32)
[2020-09-05] MEDS ORDERED: ONDANSETRON HCL 4 MG/2 ML VIAL IM ONE (04:45)
[2020-09-05] MEDS ORDERED: LORazepam 2 MG/ML VIAL IM ONE (04:45)
[2020-09-05 04:59] LABS: BILIRUBIN,URINE NEGATIVE (NEGATIVE); BLOOD, URINE NEGATIVE (NEGATIVE); CLARITY/URINE CLEAR (CLEAR); COLOR,URINE YELLOW (YELLOW); GLUCOSE,URINE NEGATIVE (NEGATIVE); KETONES,URINE NEGATIVE (NEGATIVE); LEUKOCYTE ESTERASE ,URINE NEGATIVE (NEGATIVE); NITRITE, URINE NEGATIVE (NEGATIVE); PH,URINE 5.5 (5.0-8.0); PROTEIN URINE NEGATIVE (NEGATIVE); UROBILINOGEN,URINE 0.2 (0.2-1.0)
[2020-09-05] MEDS ORDERED: THIAMINE HCL 100 MG in NS 50 ML IV ONE (05:00)
[2020-09-05] MEDS ORDERED: NACL 0.9% 1,000 ML IV ONE (05:00)
[2020-09-05] MEDS ORDERED: FOLIC ACID 5 MG/ML VIAL IV ONE (05:00)
[2020-09-05] MEDS ORDERED: MAGNESIUM SULFATE 50 ML IV ONE (05:00)
[2020-09-05] MEDS ORDERED: THIAMINE HCL 100 MG/ML VIAL ONE (05:01)
[2020-09-05] MEDS ORDERED: BANANA BAG 1 EA, MVI 10 ML, THIAMINE HCL 100 MG, FOLIC ACID 1 MG, MAGNESIUM SULFATE 1 G... IV ONE ×5 (05:15)
[2020-09-05] MEDS ORDERED: MAGNESIUM SULFATE 1 GM/2 ML VIAL IVP ONE (05:15)
[2020-09-05] MEDS ORDERED: MAGNESIUM SULFATE 1 GM/2 ML VIAL ONE (05:16)
[2020-09-05] MEDS ORDERED: PHENYTOIN SODIUM INJ 1,000 MG in NS 100 ML IV ONE (06:00)
[2020-09-05] MEDS ORDERED: levETIRAcetam 1,000 MG IV BAG 100 ML IV ONE (06:00)
[2020-09-05 06:15] LABS: BASOPHILS # (AUTO) 0.1 K/uL (0.0-0.2); BASOPHILS % (AUTO) 1.7 % (0.0-2.0); EOSINOPHILS # (AUTO) 0.1 K/uL (0.0-0.4); EOSINOPHILS % (AUTO) 2.2 % (0.0-4.0); HEMATOCRIT 42.4 % (36-54); LYMPHOCYTES % (AUTO) 33.8 % (20.5-51.5); MEAN CORPUSCULAR HEMOGLOBIN 31 pg (27-31); MEAN CORPUSCULAR HGB CONC 35 % (32-36); MEAN CORPUSCULAR VOLUME 87 fL (79.0-98.0); MONOCYTES # (AUTO) 0.4 K/uL (0.0-1.0); NEUTROPHILS # (AUTO) 3.3 K/uL (1.8-7.7); NEUTROPHILS % (AUTO) 55.3 % (40.0-70.0); PLATELET COUNT (AUTO) 290 K/uL (130-430); RED BLOOD CELL COUNT(AUTO) 4.89 MIL/uL (4.2-6.2); RED CELL DISTRIBUTION WIDTH 13.1 % (9.0-15.0)
[2020-09-05 06:23] LABS: CALCIUM 8.7 mg/dL (8.4-11.0); CREATININE 0.74 mg/dL (0.55-1.30)
[2020-09-05 06:28] LABS: ALBUMIN 3.7 g/dL (3.4-4.8); TOTAL BILIRUBIN 0.2 mg/dL (0.0-1.0)
[2020-09-05 06:29] LABS: PHENYTOIN (DILANTIN) 0.9 ug/mL (10.0-20.0)
[2020-09-05 11:30] VITALS: BP_SYST 146
[2020-09-05 11:40] LABS: BARBITURATE, URINE NEGATIVE (NEG <=200); BENZODIAZEPINE, URINE NEGATIVE (NEG <=150); CANNABINOID, URINE NEGATIVE (NEG <=50); COCAINE, URINE NEGATIVE (NEG <=150); METHAMPHETAMINES SCREEN,URINE NEGATIVE (NEG <=500); OPIATE, URINE NEGATIVE (NEG <=100); PHENCYCLIDINE SCREEN,URINE NEGATIVE (NEG <=25); UR TRICYCLIC ANTIDEPRESSANTS NEGATIVE (NEG <=300); URINE AMPHETAMINE NEGATIVE (NEG <=500); URINE METHADONE NEGATIVE (NEG <=200); URINE OXYCODONE SCREEN NEGATIVE (NEG <=100); URINE PROPOXYPHENE SCREEN NEGATIVE (NEG <=300)
== END 2020-09-05 11:31 | disposition home or self-care (01) ==
LOC: SED 04:15
DX: R56.9 Unspecified convulsions (principal); J45.909 Unspecified asthma, uncomplicated; E11.9 Type 2 diabetes mellitus without complications; K21.9 Gastro-esophageal reflux disease without esophagitis; I10 Essential (primary) hypertension; E03.9 Hypothyroidism, unspecified; Z79.899 Other long term (current) drug therapy; Z88.0 Allergy status to penicillin; Z88.1 Allergy status to other antibiotic agents; Z91.018 Allergy to other foods
CPT/HCPCS: 36415; 70450; 72125; 76376; 80053; 80164; 80185; 80307; 81003; 85025; 93005; 96365; 96372; 99285; J1165; J1953; J2060; J3411; J3475 ×2; J3490

== ENCOUNTER 2020-09-08 23:18 | Emergency (ER) | payer MEDICAID ==
[~2020-09-08] VITALS: Ht 182.9 cm; Wt 101.6 kg
[2020-09-08 23:18] VITALS: BP_SYST 138
[2020-09-08] MEDS ORDERED: LORazepam 2 MG/ML VIAL ONE (23:43)
[2020-09-08] MEDS ORDERED: LORazepam 2 MG/ML VIAL IVP ONE (23:45)
[2020-09-09 00:07] LABS: BILIRUBIN,URINE NEGATIVE (NEGATIVE); BLOOD, URINE NEGATIVE (NEGATIVE); CLARITY/URINE CLEAR (CLEAR); COLOR,URINE YELLOW (YELLOW); GLUCOSE,URINE NEGATIVE (NEGATIVE); KETONES,URINE NEGATIVE (NEGATIVE); LEUKOCYTE ESTERASE ,URINE NEGATIVE (NEGATIVE); NITRITE, URINE NEGATIVE (NEGATIVE); PROTEIN URINE NEGATIVE (NEGATIVE); UROBILINOGEN,URINE 0.2 (0.2-1.0)
[2020-09-09 00:17] LABS: BASOPHILS % (AUTO) 0.6 % (0.0-2.0); EOSINOPHILS # (AUTO) 0.2 K/uL (0.0-0.4); EOSINOPHILS % (AUTO) 2.5 % (0.0-4.0); HEMATOCRIT 42.2 % (36-54); HEMOGLOBIN 14.7 g/dL (14.0-18.0); LYMPHOCYTES % (AUTO) 38.8 % (20.5-51.5); MEAN CORPUSCULAR HEMOGLOBIN 30 pg (27-31); MEAN CORPUSCULAR HGB CONC 35 % (32-36); MEAN CORPUSCULAR VOLUME 88 fL (79.0-98.0); MONOCYTES # (AUTO) 0.6 K/uL (0.0-1.0); MONOCYTES % (AUTO) 7.7 % (1.7-9.3); NEUTROPHILS # (AUTO) 3.8 K/uL (1.8-7.7); NEUTROPHILS % (AUTO) 50.4 % (40.0-70.0); PLATELET COUNT (AUTO) 252 K/uL (130-430); RED BLOOD CELL COUNT(AUTO) 4.83 MIL/uL (4.2-6.2); RED CELL DISTRIBUTION WIDTH 13.1 % (9.0-15.0); WHITE BLOOD COUNT (AUTO) 7.6 K/uL (4.8-10.8)
[2020-09-09 00:18] LABS: ANION GAP 19 (5-15); CALCIUM 9.3 mg/dL (8.4-11.0); CHLORIDE 99 mmol/L (98-107); CREATININE 0.92 mg/dL (0.55-1.30); GLUCOSE 86 mg/dL (70-99); POTASSIUM 3.4 mmol/L (3.5-5.1); SODIUM SERUM 136 mmol/L (136-145); UREA NITROGEN, BLOOD 7 mg/dL (8-21)
[2020-09-09 00:23] LABS: BARBITURATE, URINE NEGATIVE (NEG <=200); BENZODIAZEPINE, URINE NEGATIVE (NEG <=150); CANNABINOID, URINE NEGATIVE (NEG <=50); COCAINE, URINE NEGATIVE (NEG <=150); METHAMPHETAMINES SCREEN,URINE NEGATIVE (NEG <=500); OPIATE, URINE NEGATIVE (NEG <=100); PHENCYCLIDINE SCREEN,URINE NEGATIVE (NEG <=25); UR TRICYCLIC ANTIDEPRESSANTS NEGATIVE (NEG <=300); URINE AMPHETAMINE NEGATIVE (NEG <=500); URINE METHADONE NEGATIVE (NEG <=200); URINE OXYCODONE SCREEN NEGATIVE (NEG <=100); URINE PROPOXYPHENE SCREEN NEGATIVE (NEG <=300)
[2020-09-09 00:27] LABS: ALANINE AMINOTRANSFERASE 49 U/L (12-78); ALBUMIN 3.8 g/dL (3.4-4.8); ASPARTATE AMINOTRANSFERASE 30 U/L (10-37); TOTAL BILIRUBIN 0.3 mg/dL (0.0-1.0)
[2020-09-09 00:28] LABS: GFR AFRICAN AMERICAN 123 mL/min (>90)
[2020-09-09] MEDS ORDERED: LORazepam 2 MG/ML VIAL ONE (01:13)
[2020-09-09] MEDS ORDERED: LORazepam 2 MG/ML VIAL IVP ONE (01:15)
[2020-09-09] MEDS ORDERED: levETIRAcetam 1,000 MG in NS 90 ML IV ONE (01:15)
[2020-09-09 03:45] VITALS: BP_SYST 138
== END 2020-09-09 03:45 | disposition home or self-care (01) ==
LOC: SED 23:18
DX: G40.909 Epilepsy, unspecified, not intractable, without status epilepticus (principal); J45.909 Unspecified asthma, uncomplicated; E11.9 Type 2 diabetes mellitus without complications; K21.9 Gastro-esophageal reflux disease without esophagitis; E03.9 Hypothyroidism, unspecified; Z79.899 Other long term (current) drug therapy; Z88.0 Allergy status to penicillin; Z88.1 Allergy status to other antibiotic agents; Z91.018 Allergy to other foods
CPT/HCPCS: 36415; 70450; 71045; 76376; 80053; 80307; 81003; 84484; 85025; 96365; 96375; 96376; 99291; J1953; J2060 ×2

== ENCOUNTER 2020-09-19 03:11 | Emergency (ER) | payer MEDICAID ==
[~2020-09-19] VITALS: Ht 182.9 cm; Wt 104.3 kg
[2020-09-19 03:13] VITALS: BP_SYST 139
[2020-09-19] MEDS ORDERED: levETIRAcetam 1,000 MG in NS 90 ML IV ONE (03:15)
[2020-09-19] MEDS ORDERED: NACL 0.9% 1,000 ML IV ONE (03:30)
[2020-09-19] MEDS ORDERED: ONDANSETRON HCL 4 MG/2 ML VIAL IVP ONE (03:30)
[2020-09-19 04:09] LABS: BILIRUBIN,URINE NEGATIVE (NEGATIVE); BLOOD, URINE 2+ (NEGATIVE); CLARITY/URINE CLEAR (CLEAR); COLOR,URINE YELLOW (YELLOW); GLUCOSE,URINE NEGATIVE (NEGATIVE); KETONES,URINE NEGATIVE (NEGATIVE); LEUKOCYTE ESTERASE ,URINE NEGATIVE (NEGATIVE); NITRITE, URINE NEGATIVE (NEGATIVE); PROTEIN URINE NEGATIVE (NEGATIVE); UROBILINOGEN,URINE 0.2 (0.2-1.0)
[2020-09-19 04:09] LABS: MONOCYTES # (AUTO) 0.6 K/uL (0.0-1.0); MONOCYTES % (AUTO) 7.2 % (1.7-9.3); RED CELL DISTRIBUTION WIDTH 13.1 % (9.0-15.0)
[2020-09-19 04:11] LABS: CALCIUM 9.4 mg/dL (8.4-11.0); CREATININE 0.94 mg/dL (0.55-1.30); POTASSIUM 4.7 mmol/L (3.5-5.1)
[2020-09-19 04:13] LABS: BASOPHILS # (AUTO) 0.1 K/uL (0.0-0.2); BASOPHILS % (AUTO) 0.8 % (0.0-2.0); EOSINOPHILS # (AUTO) 0.2 K/uL (0.0-0.4); EOSINOPHILS % (AUTO) 2.8 % (0.0-4.0); HEMATOCRIT 46.5 % (36-54); HEMOGLOBIN 16.4 g/dL (14.0-18.0); LYMPHOCYTES # (AUTO) 4.1 K/uL (1.0-5.5); LYMPHOCYTES % (AUTO) 48.6 % (20.5-51.5); MEAN CORPUSCULAR HEMOGLOBIN 31 pg (27-31); MEAN CORPUSCULAR HGB CONC 35 % (32-36); MEAN CORPUSCULAR VOLUME 87 fL (79.0-98.0); NEUTROPHILS # (AUTO) 3.4 K/uL (1.8-7.7); NEUTROPHILS % (AUTO) 40.6 % (40.0-70.0); PLATELET COUNT (AUTO) 276 K/uL (130-430); RED BLOOD CELL COUNT(AUTO) 5.33 MIL/uL (4.2-6.2); WHITE BLOOD COUNT (AUTO) 8.3 K/uL (4.8-10.8)
[2020-09-19 04:17] LABS: ALBUMIN 4.2 g/dL (3.4-4.8); TOTAL BILIRUBIN 0.5 mg/dL (0.0-1.0)
[2020-09-19 04:21] LABS: BARBITURATE, URINE NEGATIVE (NEG <=200); BENZODIAZEPINE, URINE NEGATIVE (NEG <=150); CANNABINOID, URINE NEGATIVE (NEG <=50); COCAINE, URINE NEGATIVE (NEG <=150); METHAMPHETAMINES SCREEN,URINE NEGATIVE (NEG <=500); OPIATE, URINE NEGATIVE (NEG <=100); PHENCYCLIDINE SCREEN,URINE NEGATIVE (NEG <=25); UR TRICYCLIC ANTIDEPRESSANTS NEGATIVE (NEG <=300); URINE AMPHETAMINE NEGATIVE (NEG <=500); URINE METHADONE NEGATIVE (NEG <=200); URINE OXYCODONE SCREEN NEGATIVE (NEG <=100); URINE PROPOXYPHENE SCREEN NEGATIVE (NEG <=300)
[2020-09-19 04:22] LABS: BACTERIA,URINE RARE /HPF (None Seen); WBC,URINE 0-3 /HPF (0-3)
[2020-09-19] MEDS ORDERED: LORazepam 2 MG/ML VIAL ONE (04:22)
[2020-09-19] MEDS ORDERED: LORazepam 2 MG/ML VIAL IVP ONE (04:30)
[2020-09-19 11:35] VITALS: BP_SYST 113
== END 2020-09-19 11:25 | disposition home or self-care (01) ==
LOC: SED 03:11
DX: G40.909 Epilepsy, unspecified, not intractable, without status epilepticus (principal); I10 Essential (primary) hypertension; E11.9 Type 2 diabetes mellitus without complications; J45.909 Unspecified asthma, uncomplicated; K21.9 Gastro-esophageal reflux disease without esophagitis; E03.9 Hypothyroidism, unspecified; Z79.899 Other long term (current) drug therapy; Z88.0 Allergy status to penicillin; Z88.1 Allergy status to other antibiotic agents; Z91.018 Allergy to other foods
CPT/HCPCS: 36415; 80053; 80307; 81000; 85025; 93005; 96365; 96375; 99285; G0482; J1953; J2060; J2405; J7030

== ENCOUNTER 2020-10-04 04:15 | Emergency (ER) | payer MEDICAID ==
[~2020-10-04] VITALS: Ht 182.9 cm; Wt 104.3 kg
[2020-10-04 04:17] VITALS: BP_SYST 136
[2020-10-04] MEDS ORDERED: levETIRAcetam 1,000 MG in NS 90 ML IV ONE (04:30)
[2020-10-04] MEDS ORDERED: LORazepam 2 MG/ML VIAL IVP ONE (04:30)
[2020-10-04 04:50] LABS: BASOPHILS # (AUTO) 0.1 K/uL (0.0-0.2); EOSINOPHILS # (AUTO) 0.2 K/uL (0.0-0.4); HEMOGLOBIN 15.7 g/dL (14.0-18.0); MONOCYTES # (AUTO) 0.7 K/uL (0.0-1.0)
[2020-10-04 04:54] LABS: ALBUMIN 3.9 g/dL (3.4-4.8); CALCIUM 9.2 mg/dL (8.4-11.0); CREATININE 0.9 mg/dL (0.55-1.30); TOTAL BILIRUBIN 0.3 mg/dL (0.0-1.0)
[2020-10-04 04:55] LABS: BASOPHILS % (AUTO) 0.9 % (0.0-2.0); EOSINOPHILS % (AUTO) 2.1 % (0.0-4.0); HEMATOCRIT 47.4 % (36-54); LYMPHOCYTES # (AUTO) 3.3 K/uL (1.0-5.5); MEAN CORPUSCULAR HEMOGLOBIN 29 pg (27-31); MEAN CORPUSCULAR HGB CONC 33 % (32-36); MEAN CORPUSCULAR VOLUME 89 fL (79.0-98.0); MONOCYTES % (AUTO) 8.7 % (1.7-9.3); NEUTROPHILS % (AUTO) 48.3 % (40.0-70.0); PLATELET COUNT (AUTO) 286 K/uL (130-430); RED BLOOD CELL COUNT(AUTO) 5.35 MIL/uL (4.2-6.2); RED CELL DISTRIBUTION WIDTH 13.2 % (9.0-15.0); WHITE BLOOD COUNT (AUTO) 8.3 K/uL (4.8-10.8)
[2020-10-04] MEDS ORDERED: NACL 0.9% 2,000 ML IV ONE (07:15)
[2020-10-04 11:27] VITALS: BP_SYST 116
== END 2020-10-04 11:25 | disposition home or self-care (01) ==
LOC: SED 04:15
DX: R56.9 Unspecified convulsions (principal); E03.9 Hypothyroidism, unspecified; I10 Essential (primary) hypertension; E11.9 Type 2 diabetes mellitus without complications; J45.909 Unspecified asthma, uncomplicated; K21.9 Gastro-esophageal reflux disease without esophagitis; Z79.899 Other long term (current) drug therapy; Z88.0 Allergy status to penicillin; Z88.1 Allergy status to other antibiotic agents; Z91.018 Allergy to other foods
CPT/HCPCS: 36415; 80053; 80185; 85025; 96361; 96365; 96375; 99284; G0482; J1953; J2060; J7030

== ENCOUNTER 2020-10-15 03:49 | Emergency (ER) | payer MEDICAID ==
[~2020-10-15] VITALS: Ht 185.4 cm; Wt 111.1 kg
[2020-10-15 03:49] VITALS: BP_SYST 150
[2020-10-15] MEDS ORDERED: NACL 0.9% 1,000 ML IV ONE (04:15)
[2020-10-15] MEDS ORDERED: levETIRAcetam 1,000 MG in NS 90 ML IV ONE (04:15)
[2020-10-15 05:35] LABS: BILIRUBIN,URINE NEGATIVE (NEGATIVE); BLOOD, URINE NEGATIVE (NEGATIVE); CLARITY/URINE CLEAR (CLEAR); COLOR,URINE YELLOW (YELLOW); GLUCOSE,URINE NEGATIVE (NEGATIVE); KETONES,URINE NEGATIVE (NEGATIVE); LEUKOCYTE ESTERASE ,URINE NEGATIVE (NEGATIVE); NITRITE, URINE NEGATIVE (NEGATIVE); PH,URINE 5.5 (5.0-8.0); PROTEIN URINE NEGATIVE (NEGATIVE); UROBILINOGEN,URINE 0.2 (0.2-1.0)
[2020-10-15 06:03] LABS: BASOPHILS # (AUTO) 0.1 K/uL (0.0-0.2); BASOPHILS % (AUTO) 0.9 % (0.0-2.0); EOSINOPHILS # (AUTO) 0.1 K/uL (0.0-0.4); EOSINOPHILS % (AUTO) 1.3 % (0.0-4.0); HEMATOCRIT 39.7 % (36-54); HEMOGLOBIN 13.3 g/dL (14.0-18.0); LYMPHOCYTES # (AUTO) 2.3 K/uL (1.0-5.5); LYMPHOCYTES % (AUTO) 34.8 % (20.5-51.5); MEAN CORPUSCULAR HEMOGLOBIN 30 pg (27-31); MEAN CORPUSCULAR HGB CONC 34 % (32-36); MEAN CORPUSCULAR VOLUME 88 fL (79.0-98.0); MONOCYTES # (AUTO) 0.4 K/uL (0.0-1.0); MONOCYTES % (AUTO) 5.8 % (1.7-9.3); NEUTROPHILS # (AUTO) 3.9 K/uL (1.8-7.7); NEUTROPHILS % (AUTO) 57.2 % (40.0-70.0); PLATELET COUNT (AUTO) 332 K/uL (130-430); RED BLOOD CELL COUNT(AUTO) 4.49 MIL/uL (4.2-6.2); WHITE BLOOD COUNT (AUTO) 6.7 K/uL (4.8-10.8)
[2020-10-15 06:10] LABS: CALCIUM 8.8 mg/dL (8.4-11.0); CREATININE 0.86 mg/dL (0.55-1.30); POTASSIUM 4.2 mmol/L (3.5-5.1)
[2020-10-15 06:15] LABS: ALBUMIN 3.8 g/dL (3.4-4.8); TOTAL BILIRUBIN 0.3 mg/dL (0.0-1.0)
[2020-10-15] MEDS ORDERED: LORazepam 2 MG/ML VIAL ONE (06:26)
[2020-10-15] MEDS ORDERED: LORazepam 2 MG/ML VIAL IVP ONE ×2 (06:30→06:45)
[2020-10-15 08:00] VITALS: BP_SYST 136
== END 2020-10-15 08:00 | disposition home or self-care (01) ==
LOC: SED 03:49
DX: G40.909 Epilepsy, unspecified, not intractable, without status epilepticus (principal); J45.909 Unspecified asthma, uncomplicated; I10 Essential (primary) hypertension; E11.9 Type 2 diabetes mellitus without complications; K21.9 Gastro-esophageal reflux disease without esophagitis; E03.9 Hypothyroidism, unspecified
CPT/HCPCS: 36415; 70450; 76376; 80053; 81003; 85025; 96365; 96375; 99284; J1953; J2060; J7030

== ENCOUNTER 2020-10-30 02:25 | Emergency (ER) | payer MEDICAID ==
[~2020-10-30] VITALS: Ht 185.4 cm; Wt 111.1 kg
[2020-10-30 02:30] VITALS: BP_SYST 154
[2020-10-30 03:00] LABS: BASOPHILS # (AUTO) 0.1 K/uL (0.0-0.2); BASOPHILS % (AUTO) 0.9 % (0.0-2.0); EOSINOPHILS # (AUTO) 0.2 K/uL (0.0-0.4); EOSINOPHILS % (AUTO) 2.2 % (0.0-4.0); LYMPHOCYTES # (AUTO) 4.6 K/uL (1.0-5.5); LYMPHOCYTES % (AUTO) 58.1 % (20.5-51.5); MEAN CORPUSCULAR HEMOGLOBIN 32 pg (27-31); MEAN CORPUSCULAR HGB CONC 36 % (32-36); MEAN CORPUSCULAR VOLUME 89 fL (79.0-98.0); MONOCYTES # (AUTO) 0.6 K/uL (0.0-1.0); MONOCYTES % (AUTO) 7.3 % (1.7-9.3); NEUTROPHILS # (AUTO) 2.5 K/uL (1.8-7.7); NEUTROPHILS % (AUTO) 31.5 % (40.0-70.0); PLATELET COUNT (AUTO) 269 K/uL (130-430); RED BLOOD CELL COUNT(AUTO) 5.06 MIL/uL (4.2-6.2); RED CELL DISTRIBUTION WIDTH 13.3 % (9.0-15.0); WHITE BLOOD COUNT (AUTO) 7.8 K/uL (4.8-10.8)
[2020-10-30] MEDS ORDERED: NACL 0.9% 1,000 ML IV ONE (03:00)
[2020-10-30] MEDS ORDERED: levETIRAcetam 500 MG in NS 100 ML IV ONE (03:00)
[2020-10-30 03:16] LABS: CALCIUM 8.3 mg/dL (8.4-11.0); CREATININE 0.88 mg/dL (0.55-1.30); POTASSIUM 3.7 mmol/L (3.5-5.1)
[2020-10-30 03:21] LABS: ALBUMIN 3.4 g/dL (3.4-4.8); TOTAL BILIRUBIN 0.2 mg/dL (0.0-1.0)
[2020-10-30 03:42] LABS: BILIRUBIN,URINE NEGATIVE (NEGATIVE); BLOOD, URINE NEGATIVE (NEGATIVE); CLARITY/URINE CLEAR (CLEAR); COLOR,URINE YELLOW (YELLOW); GLUCOSE,URINE NEGATIVE (NEGATIVE); KETONES,URINE TRACE (NEGATIVE); LEUKOCYTE ESTERASE ,URINE NEGATIVE (NEGATIVE); NITRITE, URINE NEGATIVE (NEGATIVE); PH,URINE 5.5 (5.0-8.0); PROTEIN URINE 1+ (NEGATIVE); UROBILINOGEN,URINE 0.2 (0.2-1.0)
[2020-10-30] MEDS ORDERED: ONDANSETRON HCL 4 MG/2 ML VIAL IVP ONE (03:45)
[2020-10-30] MEDS ORDERED: ONDANSETRON HCL 4 MG/2 ML VIAL ONE (03:46)
[2020-10-30 03:55] LABS: BARBITURATE, URINE POSITIVE (NEG <=200); BENZODIAZEPINE, URINE POSITIVE (NEG <=150); CANNABINOID, URINE NEGATIVE (NEG <=50); COCAINE, URINE NEGATIVE (NEG <=150); METHAMPHETAMINES SCREEN,URINE NEGATIVE (NEG <=500); OPIATE, URINE NEGATIVE (NEG <=100); PHENCYCLIDINE SCREEN,URINE NEGATIVE (NEG <=25); UR TRICYCLIC ANTIDEPRESSANTS NEGATIVE (NEG <=300); URINE AMPHETAMINE NEGATIVE (NEG <=500); URINE METHADONE NEGATIVE (NEG <=200); URINE OXYCODONE SCREEN NEGATIVE (NEG <=100); URINE PROPOXYPHENE SCREEN NEGATIVE (NEG <=300)
[2020-10-30 03:59] LABS: BACTERIA,URINE FEW /HPF (None Seen); RBC,URINE 0-3 /HPF (0-3); WBC,URINE 0-3 /HPF (0-3)
[2020-10-30] MEDS ORDERED: METOPROLOL SUCCINATE 25 MG TAB.SR.24H (TOPROL XL) PO ONE (06:00)
[2020-10-30] MEDS ORDERED: ACETAMINOPHEN 325 MG TABLET PO ONE (06:00)
[2020-10-30] MEDS ORDERED: METOPROLOL TARTRATE 25 MG TABLET ONE (06:08)
[2020-10-30] MEDS ORDERED: METOPROLOL TARTRATE 25 MG TABLET PO ONE (06:15)
[2020-10-30 06:27] VITALS: BP_SYST 135
== END 2020-10-30 06:27 | disposition home or self-care (01) ==
LOC: SED 02:25
DX: R56.9 Unspecified convulsions (principal); F10.10 Alcohol abuse, uncomplicated; I10 Essential (primary) hypertension; E11.9 Type 2 diabetes mellitus without complications; J45.909 Unspecified asthma, uncomplicated; E03.9 Hypothyroidism, unspecified; K21.9 Gastro-esophageal reflux disease without esophagitis; Z79.899 Other long term (current) drug therapy; Z88.0 Allergy status to penicillin; Z88.1 Allergy status to other antibiotic agents; Z88.8 Allergy status to other drugs, medicaments and biological substances; Z91.018 Allergy to other foods
CPT/HCPCS: 36415; 80053; 80307; 81000; 85025; 96365; 96375; 99284; G0482; J1953; J2405; J7030

== ENCOUNTER 2020-11-02 19:15 | Inpatient (IN) | payer MEDICAID ==
[~2020-11-02] VITALS: Ht 185.4 cm; Wt 108.5 kg
[2020-11-02 19:15] VITALS: BP_SYST 160
--- NOTE | 2020-11-02 19:15 | NUR ---
Patient to ER bed 1 to gown for evaluation. Side rails up.
--- NOTE | 2020-11-02 19:25 | NUR ---
# 20 gauge angiocath placed to right wrist. Use of asceptic technique. Opsite placed over site. Blood return noted. Blood for lab drawn from site. Flushed with 10 cc of normal saline. No evidence of infiltration noted. Patient tolerated well.
--- NOTE | 2020-11-02 19:42 | NUR ---
Dr. Em bedside for pt eval
[2020-11-02] MEDS ORDERED: LORazepam 2 MG/ML VIAL IVP ONE (19:45)
[2020-11-02] MEDS ORDERED: levETIRAcetam 1,000 MG IV BAG 100 ML IV ONE (19:45)
[2020-11-02] MEDS ORDERED: LORazepam 2 MG/ML VIAL ONE (19:46)
--- NOTE | 2020-11-02 20:10 | NUR ---
Pt provided urine sample, slight pink colored, sent to lab
[2020-11-02] MEDS ORDERED: NACL 0.9% 1,000 ML IV ONE (20:30)
--- NOTE | 2020-11-02 20:46 | NUR ---
Lab bedside for blood draw, well tolerated
[2020-11-02 20:57] LABS: BILIRUBIN,URINE NEGATIVE (NEGATIVE); BLOOD, URINE 3+ (NEGATIVE); COLOR,URINE RED (YELLOW); GLUCOSE,URINE NEGATIVE (NEGATIVE); KETONES,URINE NEGATIVE (NEGATIVE); LEUKOCYTE ESTERASE ,URINE NEGATIVE (NEGATIVE); NITRITE, URINE NEGATIVE (NEGATIVE); PROTEIN URINE 1+ (NEGATIVE); UROBILINOGEN,URINE 0.2 (0.2-1.0)
[2020-11-02] MEDS ORDERED: MAGNESIUM SULFATE 50 ML IV ONE (21:00)
[2020-11-02 21:02] LABS: CLARITY/URINE SLIGHTLY HAZY (CLEAR)
[2020-11-02 21:08] LABS: BASOPHILS # (AUTO) 0.1 K/uL (0.0-0.2); EOSINOPHILS # (AUTO) 0.1 K/uL (0.0-0.4)
[2020-11-02 21:15] LABS: CALCIUM 8.3 mg/dL (8.4-11.0); CREATININE 0.66 mg/dL (0.55-1.30); POTASSIUM 3.4 mmol/L (3.5-5.1)
[2020-11-02 21:16] LABS: BASOPHILS % (AUTO) 0.8 % (0.0-2.0); EOSINOPHILS % (AUTO) 2.1 % (0.0-4.0); HEMATOCRIT 43.8 % (36-54); HEMOGLOBIN 15.5 g/dL (14.0-18.0); LYMPHOCYTES # (AUTO) 1.9 K/uL (1.0-5.5); LYMPHOCYTES % (AUTO) 30.1 % (20.5-51.5); MEAN CORPUSCULAR HEMOGLOBIN 31 pg (27-31); MEAN CORPUSCULAR HGB CONC 36 % (32-36); MEAN CORPUSCULAR VOLUME 87 fL (79.0-98.0); MONOCYTES # (AUTO) 0.4 K/uL (0.0-1.0); MONOCYTES % (AUTO) 6.2 % (1.7-9.3); NEUTROPHILS # (AUTO) 3.8 K/uL (1.8-7.7); NEUTROPHILS % (AUTO) 60.8 % (40.0-70.0); PLATELET COUNT (AUTO) 272 K/uL (130-430); RED BLOOD CELL COUNT(AUTO) 5.01 MIL/uL (4.2-6.2); RED CELL DISTRIBUTION WIDTH 12.7 % (9.0-15.0); WHITE BLOOD COUNT (AUTO) 6.2 K/uL (4.8-10.8)
[2020-11-02 21:22] LABS: BACTERIA,URINE FEW /HPF (None Seen); MUCUS,URINE None Seen /LPF (None Seen); RBC,URINE 20-50 /HPF (0-3)
[2020-11-02 21:25] LABS: ALBUMIN 3.3 g/dL (3.4-4.8); TOTAL BILIRUBIN 0.5 mg/dL (0.0-1.0)
--- NOTE | 2020-11-02 21:52 | NUR ---
Pt remains in stable condition, asleep on gurney with rails up, and seizure pads in place
[2020-11-02] MEDS ORDERED: KCL 10 mEq in 50 mL (PREMIX) 50 ML IV ONE (22:30)
--- NOTE | 2020-11-02 22:58 | NUR ---
IV Mag and Kcl in progress, and well tolerated
--- NOTE | 2020-11-03 00:09 | NUR ---
ORDERS RECEIVED FROM DR. NICOLE FOR ADMISSION. PT TO BE ADMITTED TO TELE. BED ORDERED.
[2020-11-03] MEDS ORDERED: FOLIC ACID 1 MG, THIAMINE HCL 100 MG, MAGNESIUM SULFATE 1 GM, MVI 10 ML in NACL 0.9% 1,... IV ONE (00:15)
[2020-11-03] MEDS ORDERED: NACL 0.9% 1,000 ML IV SCH (00:15)
[2020-11-03] MEDS ORDERED: LORazepam 2 MG/ML VIAL IVP PRN (00:15)
[2020-11-03] MEDS ORDERED: MAGNESIUM SULFATE 1 GM/2 ML VIAL ONE (00:39)
[2020-11-03] MEDS ORDERED: MVI 10 ML VIAL IV ONE (00:39)
[2020-11-03] MEDS ORDERED: THIAMINE HCL 100 MG/ML VIAL ONE (00:39)
[2020-11-03] MEDS ORDERED: FOLIC ACID 5 MG/ML VIAL IV ONE (00:39)
--- NOTE | 2020-11-03 01:37 | NUR ---
Patient will be admitted to care of Dr. Oropeza. Admitted to Tele unit. Will go to room 133. Belongings list completed. Complete and up to date summary report printed. SBAR report to be given at bedside with opportunity for questions.
--- NOTE | 2020-11-03 01:37 | NUR ---
Transfer to Tele via ACLS protocol. Licensed nurse present. IV present no signs or symptoms of infiltration.
--- NOTE | 2020-11-03 01:37 | NUR ---
ADMISSION NOTE Received patient from ER via gurney. Patient admitted with diagnosis of ALCOHOL INTOXICATION/SEIZURE DISORDER. Patient is awake, alert, oriented X 1 . Patient oriented to hospital room, call light, toileting, pain management and safety-teach back done. Patient informed that LASHAUN will be nurse and that their room number is 120A. Personal belongings checked and Belongings List documented. Call light within reach.
[2020-11-03 01:42] VITALS: BP_SYST 130
--- NOTE | 2020-11-03 01:54 | NUR ---
PT SUDDENLY STARTED SEIZING FOR 1 MIN ([id number]) WHILE DOING ADMISSION ASSESSMENT. PADDED SIDE RAILS UP FOR SEIZURE PRECAUTIONS. RECHECKED VITAL SIGN AFTER SEIZING, BP 145/75, HR 61, 02 94 ROOM AIR.
--- NOTE | 2020-11-03 01:59 | NUR ---
ATIVAN GIVEN PT RESTING IN BED, BREATHING EVEN AND UNLABORED TO ROOM AIR. NO SIGNS OF RESPIRATORY DISTRESS NOTED. IVF RUNNING ORDERED RATE. NO SIGNS OF INFILTRATION NOTED. PADDED SIDE RAILS UP. CALL LIGHT WITHIN REACH. BED ALARM ON, LOCKED IN LOWEST POSITION. SAFETY, FALL, ASPIRATION, AND SEIZURE PRECAUTIONS MAINTAINED. WILL CONTINUE TO MONITOR.
--- NOTE | 2020-11-03 06:47 | NUR ---
CLOSING NOTES PT RESTING IN BED, ALERT & ORIENTED X4. BREATHING EVEN AND UNLABORED TO ROOM AIR. PT DENIES ANY PAIN AT THIS TIME. NO MORE SEIZING NOTED AT THIS TIME. IVF RUNNING ORDERED RATE. PT TOLERATING WELL. CALL LIGHT WITHIN REACH. PADDED SIDE RAILS UP. CALL LIGHT WITHIN REACH. SAFETY, FALL, AND SEIZURE PRECAUTIONS ARE IN PLACE. ALL NEEDS ARE MET THROUGHOUT THE SHIFT. WILL CONTINUE TO MONITOR UNTIL ENDORSE TO DAY SHIFT RN.
--- NOTE | 2020-11-03 07:25 | NUR ---
AM ROUNDS: PATIENT SLEEPING DURING ROUNDS. BEDSIDE REPORT BY NIGHT NURSE LASHAUN.IV RIGHT WRIST SALINE LOCK. BILATERAL PADDED SIDE RAILS ON.BED LOCKED AT LOWEST POSITION. CALL LIGHT WITH IN REACH.CONTINUE TO MONITOR.
[2020-11-03 08:00] VITALS: BP_SYST 154
[2020-11-03] MEDS ORDERED: chlordiazePOXIDE HCL 25 MG CAPSULE PO ONE (09:45)
[2020-11-03] MEDS ORDERED: FOLIC ACID 1 MG, THIAMINE HCL 100 MG, MAGNESIUM SULFATE 1 GM, MVI 10 ML in NACL 0.9% 1,... IV SCH (09:45)
--- NOTE | 2020-11-03 10:00 | NUR ---
MD ROUNDS: PATIENT SEEN BY DR NICOLE IN THE ROOM.PATIENT REQUESTED AMA EVEN AFTER MD EXPLAINED THE DISADVANTAGES/TEACHINGS REGARDING GOING AGAINST MEDICAL ADVICE. PATIENT /MD SIGNED AMA FORM.
[2020-11-03] MEDS ORDERED: levETIRAcetam 500 MG TABLET PO ONE (10:30)
--- NOTE | 2020-11-03 11:00 | NUR ---
PATIENT NOT GOING AMA: FAMILY FRIEND CHELSEA CALLED AND SPOKE TO PATIENT AND ENCOURAGED PATIENT NOT TO GO AMA BECAUSE DR NICOLE DOES NOT ADVICE THE PATIENT TO GO HOME THIS TIME. SPOKE TO PATIENT AND CHANGED HIS MIND NOT TO GO AMA THIS TIME. Addendum: 11/03/20 at 1129 by Kelly Wood RN ADD NOTES: CHARGE NURSE DANDRE UMANA ,PT NOT GOING AMA THIS TIME.
--- NOTE | 2020-11-03 11:50 | NUR ---
Patient changed his mind: Patient finally decided to go against medical advice. aware. Addendum: 11/03/20 at 1522 by Kelly Wood RN add notes: Nursing lieutenant shift supervisor,charge nurse and hospital security aware of the ama.
[2020-11-03 12:00] VITALS: BP_SYST 143
--- NOTE | 2020-11-03 12:06 | NUR ---
AMA: Patient does not wish to proceed with medical care recommended BY Dr Oropeza. Patient given information related to possible complications, up to and including , which could occur as a result of leaving hospital at this time. Patient verbalizes understanding of risks involved leaving against medical advice. Patient has signed AMA form. Addendum: 11/03/20 at 1523 by Kelly Wood RN iv removed,dry gauze applied. no bleeding noted to the site.
[2020-11-03] MEDS ORDERED: chlordiazePOXIDE HCL 25 MG CAPSULE PO SCH (15:00)
[2020-11-03] MEDS ORDERED: PHENYTOIN 100 MG CAPSULE PO SCH (15:00)
[2020-11-03] MEDS ORDERED: levETIRAcetam 500 MG TABLET PO SCH ×2 (21:00)
[2020-11-03] MEDS ORDERED: METOPROLOL TARTRATE 25 MG TABLET PO SCH (21:00)
[2020-11-04] MEDS ORDERED: LOSARTAN POTASSIUM 50 MG TABLET (COZAAR) PO SCH (09:00)
[2020-11-04] MEDS ORDERED: DIVALPROEX SODIUM 250 MG TAB.SR.24H (DEPAKOTE ER) PO SCH (09:00)
[2020-11-04] MEDS ORDERED: amLODIPine BESYLATE 10 MG TABLET PO SCH (09:00)
== END 2020-11-03 12:06 | disposition left against medical advice (07) | DRG 52 ==
LOC: SED 19:15 → STU 11-03 00:02
DX: G92 Toxic encephalopathy (principal); G40.909 Epilepsy, unspecified, not intractable, without status epilepticus; J45.909 Unspecified asthma, uncomplicated; E11.9 Type 2 diabetes mellitus without complications; K21.9 Gastro-esophageal reflux disease without esophagitis; I10 Essential (primary) hypertension; Y90.9 Presence of alcohol in blood, level not specified; Z53.29 Procedure and treatment not carried out because of patient's decision for other reasons; F10.129 Alcohol abuse with intoxication, unspecified; F10.139 Alcohol abuse with withdrawal, unspecified; E87.1 Hypo-osmolality and hyponatremia; E87.6 Hypokalemia; Z20.822 Contact with and (suspected) exposure to COVID-19; Z88.1 Allergy status to other antibiotic agents; Z88.0 Allergy status to penicillin; Z91.018 Allergy to other foods; Z91.14 Patient's other noncompliance with medication regimen
CPT/HCPCS: 36415; 80053; 81000-TC; 83735-TC; 85025; G0378; G0482; J1953; J2060; J3411; J3475; J3490; J7030

== ENCOUNTER 2020-11-17 23:27 | Emergency (ER) | payer MEDICAID, SELFPAY ==
[~2020-11-17] VITALS: Ht 182.9 cm; Wt 111.1 kg
[2020-11-17 23:27] VITALS: BP_SYST 130
[~2020-11-17 23:27] MED LIST changes: -AMLO2.5T2
[2020-11-17] MEDS ORDERED: levETIRAcetam 1,000 MG IV BAG 100 ML IV ONE (23:45)
[2020-11-18] MEDS ORDERED: NACL 0.9% 1,000 ML IV ONE
[2020-11-18 00:10] LABS: BILIRUBIN,URINE NEGATIVE (NEGATIVE); BLOOD, URINE NEGATIVE (NEGATIVE); CLARITY/URINE CLEAR (CLEAR); COLOR,URINE YELLOW (YELLOW); GLUCOSE,URINE NEGATIVE (NEGATIVE); KETONES,URINE NEGATIVE (NEGATIVE); LEUKOCYTE ESTERASE ,URINE NEGATIVE (NEGATIVE); NITRITE, URINE NEGATIVE (NEGATIVE); PROTEIN URINE 1+ (NEGATIVE); UROBILINOGEN,URINE 0.2 (0.2-1.0)
[2020-11-18] MEDS ORDERED: LORazepam 2 MG/ML VIAL IVP ONE ×2 (00:15→01:15)
[2020-11-18] MEDS ORDERED: LORazepam 2 MG/ML VIAL ONE (00:16)
[2020-11-18 00:25] LABS: BARBITURATE, URINE NEGATIVE (NEG <=200); BENZODIAZEPINE, URINE POSITIVE (NEG <=150); CANNABINOID, URINE NEGATIVE (NEG <=50); COCAINE, URINE NEGATIVE (NEG <=150); METHAMPHETAMINES SCREEN,URINE NEGATIVE (NEG <=500); OPIATE, URINE NEGATIVE (NEG <=100); PHENCYCLIDINE SCREEN,URINE NEGATIVE (NEG <=25); UR TRICYCLIC ANTIDEPRESSANTS NEGATIVE (NEG <=300); URINE AMPHETAMINE NEGATIVE (NEG <=500); URINE METHADONE NEGATIVE (NEG <=200); URINE OXYCODONE SCREEN NEGATIVE (NEG <=100); URINE PROPOXYPHENE SCREEN NEGATIVE (NEG <=300)
[2020-11-18 00:26] LABS: BACTERIA,URINE FEW /HPF (None Seen); RBC,URINE 0-3 /HPF (0-3); WBC,URINE 0-3 /HPF (0-3)
[2020-11-18 00:27] LABS: FINE GRANULAR CASTS,URINE 0-10 /LPF (None Seen)
[2020-11-18 00:35] LABS: BASOPHILS # (AUTO) 0.1 K/uL (0.0-0.2); BASOPHILS % (AUTO) 1.1 % (0.0-2.0); EOSINOPHILS # (AUTO) 0.2 K/uL (0.0-0.4); EOSINOPHILS % (AUTO) 3.8 % (0.0-4.0); HEMATOCRIT 47.3 % (36-54); HEMOGLOBIN 16.1 g/dL (14.0-18.0); LYMPHOCYTES # (AUTO) 2.3 K/uL (1.0-5.5); LYMPHOCYTES % (AUTO) 38.8 % (20.5-51.5); MEAN CORPUSCULAR HEMOGLOBIN 30 pg (27-31); MEAN CORPUSCULAR HGB CONC 34 % (32-36); MEAN CORPUSCULAR VOLUME 88 fL (79.0-98.0); MONOCYTES # (AUTO) 0.5 K/uL (0.0-1.0); MONOCYTES % (AUTO) 7.6 % (1.7-9.3); NEUTROPHILS # (AUTO) 2.9 K/uL (1.8-7.7); NEUTROPHILS % (AUTO) 48.7 % (40.0-70.0); PLATELET COUNT (AUTO) 286 K/uL (130-430); RED BLOOD CELL COUNT(AUTO) 5.37 MIL/uL (4.2-6.2); RED CELL DISTRIBUTION WIDTH 13.6 % (9.0-15.0)
[2020-11-18 00:44] LABS: CALCIUM 9.6 mg/dL (8.4-11.0); CREATININE 0.82 mg/dL (0.55-1.30); POTASSIUM 4.5 mmol/L (3.5-5.1)
[2020-11-18 00:50] LABS: ALBUMIN 4.2 g/dL (3.4-4.8); TOTAL BILIRUBIN 0.2 mg/dL (0.0-1.0)
[2020-11-18] MEDS ORDERED: CAT1PAT TD (08:36)
[2020-11-18 09:10] VITALS: BP_SYST 120
== END 2020-11-18 09:10 | disposition home or self-care (01) ==
LOC: SED 23:27
DX: G40.909 Epilepsy, unspecified, not intractable, without status epilepticus (principal); I10 Essential (primary) hypertension; E11.9 Type 2 diabetes mellitus without complications; E03.9 Hypothyroidism, unspecified; J45.909 Unspecified asthma, uncomplicated; K21.9 Gastro-esophageal reflux disease without esophagitis; Z88.0 Allergy status to penicillin; Z88.1 Allergy status to other antibiotic agents; Z88.8 Allergy status to other drugs, medicaments and biological substances; Z79.899 Other long term (current) drug therapy
CPT/HCPCS: 36415; 80053; 80307; 81000; 85025; 96365; 96375; 96376; 99285; J1953; J2060

== ENCOUNTER 2020-11-27 08:20 | Emergency (ER) | payer MEDICAID ==
[~2020-11-27] VITALS: Ht 182.9 cm; Wt 90.7 kg
[2020-11-27 08:20] VITALS: BP_SYST 139
[~2020-11-27 08:20] MED LIST changes: +CAT1PAT TD
[2020-11-27] MEDS ORDERED: levETIRAcetam 1,000 MG IV BAG 100 ML IV ONE (08:30)
[2020-11-27 09:02] LABS: BASOPHILS % (AUTO) 0.9 % (0.0-2.0); EOSINOPHILS # (AUTO) 0.1 K/uL (0.0-0.4); EOSINOPHILS % (AUTO) 3.1 % (0.0-4.0); HEMATOCRIT 44.8 % (36-54); HEMOGLOBIN 15.1 g/dL (14.0-18.0); MEAN CORPUSCULAR HEMOGLOBIN 30 pg (27-31); MEAN CORPUSCULAR HGB CONC 34 % (32-36); MEAN CORPUSCULAR VOLUME 88 fL (79.0-98.0); MONOCYTES # (AUTO) 0.5 K/uL (0.0-1.0); MONOCYTES % (AUTO) 10.2 % (1.7-9.3); NEUTROPHILS # (AUTO) 2.1 K/uL (1.8-7.7); NEUTROPHILS % (AUTO) 44.8 % (40.0-70.0); PLATELET COUNT (AUTO) 287 K/uL (130-430); RED BLOOD CELL COUNT(AUTO) 5.12 MIL/uL (4.2-6.2); RED CELL DISTRIBUTION WIDTH 13.4 % (9.0-15.0); WHITE BLOOD COUNT (AUTO) 4.8 K/uL (4.8-10.8)
[2020-11-27 09:22] LABS: CALCIUM 9.5 mg/dL (8.4-11.0); CREATININE 0.93 mg/dL (0.55-1.30)
[2020-11-27 09:27] LABS: PROTHROMBIN TIME 10.4 SECS (9.5-12.5)
[2020-11-27] MEDS ORDERED: LEVE750T4 PO (11:06)
[2020-11-27] MEDS ORDERED: CLE150 PO (11:06)
[2020-11-27 12:05] VITALS: BP_SYST 108
== END 2020-11-27 11:30 | disposition home or self-care (01) ==
LOC: SED 08:20
DX: R56.9 Unspecified convulsions (principal); I10 Essential (primary) hypertension; E11.9 Type 2 diabetes mellitus without complications; J45.909 Unspecified asthma, uncomplicated; K21.9 Gastro-esophageal reflux disease without esophagitis; E03.9 Hypothyroidism, unspecified; Z79.899 Other long term (current) drug therapy; Z79.82 Long term (current) use of aspirin; Z88.0 Allergy status to penicillin; Z91.018 Allergy to other foods; Z88.1 Allergy status to other antibiotic agents
CPT/HCPCS: 36415; 73564; 80048; 84484; 85025; 85610; 85730; 93005; 96365; 99285; J1953

== ENCOUNTER 2021-01-02 05:24 | Emergency (ER) | payer MEDICAID ==
[~2021-01-02] VITALS: Ht 177.8 cm; Wt 90.7 kg
[~2021-01-02 05:24] MED LIST changes: +CLE150 PO; +LEVE750T4 PO
[2021-01-02 05:35] VITALS: BP_SYST 150
[2021-01-02] MEDS ORDERED: levETIRAcetam 500 MG IV PREMIX 100 ML IV ONE (06:30)
[2021-01-02] MEDS ORDERED: NACL 0.9% 1,000 ML IV ONE (06:30)
[2021-01-02 06:41] LABS: CALCIUM 8.7 mg/dL (8.4-11.0); CREATININE 0.9 mg/dL (0.55-1.30); POTASSIUM 3.6 mmol/L (3.5-5.1)
[2021-01-02 06:43] LABS: BASOPHILS # (AUTO) 0.1 K/uL (0.0-0.2); EOSINOPHILS # (AUTO) 0.2 K/uL (0.0-0.4); EOSINOPHILS % (AUTO) 3.5 % (0.0-4.0); HEMATOCRIT 40.3 % (36-54); LYMPHOCYTES # (AUTO) 2.8 K/uL (1.0-5.5); LYMPHOCYTES % (AUTO) 49.9 % (20.5-51.5); MEAN CORPUSCULAR HEMOGLOBIN 30 pg (27-31); MEAN CORPUSCULAR HGB CONC 35 % (32-36); MEAN CORPUSCULAR VOLUME 88 fL (79.0-98.0); MONOCYTES # (AUTO) 0.3 K/uL (0.0-1.0); MONOCYTES % (AUTO) 5.4 % (1.7-9.3); NEUTROPHILS # (AUTO) 2.3 K/uL (1.8-7.7); NEUTROPHILS % (AUTO) 40.2 % (40.0-70.0); PLATELET COUNT (AUTO) 280 K/uL (130-430); RED BLOOD CELL COUNT(AUTO) 4.61 MIL/uL (4.2-6.2); RED CELL DISTRIBUTION WIDTH 13.3 % (9.0-15.0); WHITE BLOOD COUNT (AUTO) 5.6 K/uL (4.8-10.8)
[2021-01-02 06:53] LABS: ALBUMIN 3.7 g/dL (3.4-4.8); TOTAL BILIRUBIN 0.3 mg/dL (0.0-1.0)
[2021-01-02 06:57] LABS: BARBITURATE, URINE NEGATIVE (NEG <=200); BENZODIAZEPINE, URINE POSITIVE (NEG <=150); CANNABINOID, URINE NEGATIVE (NEG <=50); COCAINE, URINE NEGATIVE (NEG <=150); METHAMPHETAMINES SCREEN,URINE NEGATIVE (NEG <=500); OPIATE, URINE NEGATIVE (NEG <=100); PHENCYCLIDINE SCREEN,URINE NEGATIVE (NEG <=25); UR TRICYCLIC ANTIDEPRESSANTS NEGATIVE (NEG <=300); URINE AMPHETAMINE NEGATIVE (NEG <=500); URINE METHADONE NEGATIVE (NEG <=200); URINE OXYCODONE SCREEN NEGATIVE (NEG <=100); URINE PROPOXYPHENE SCREEN NEGATIVE (NEG <=300)
[2021-01-02 10:39] VITALS: BP_SYST 128
== END 2021-01-02 10:40 | disposition home or self-care (01) ==
LOC: SED 05:24
DX: G40.909 Epilepsy, unspecified, not intractable, without status epilepticus (principal); F10.10 Alcohol abuse, uncomplicated; I10 Essential (primary) hypertension; E11.9 Type 2 diabetes mellitus without complications; Z79.899 Other long term (current) drug therapy; Z88.0 Allergy status to penicillin; Z88.1 Allergy status to other antibiotic agents; Y90.8 Blood alcohol level of 240 mg/100 ml or more
CPT/HCPCS: 36415; 80053; 80307; 82962; 83735; 85025; 96365; 99285; G0482; J1953

== ENCOUNTER 2021-01-23 05:14 | Emergency (ER) | payer MEDICAID, SELFPAY ==
[~2021-01-23] VITALS: Ht 182.9 cm; Wt 95.3 kg
[~2021-01-23 05:14] MED LIST changes: -DIVA250T; +DIVA500T4 PO; -LEVE500T9 PO; -LEVE750T4 PO; -PHEN100C4 PO
[2021-01-23 05:20] VITALS: BP_SYST 165
--- NOTE | 2021-01-23 05:20 | NUR ---
Seizure precautions in place. Seizure pads applied to gurney. Side rails up.
--- NOTE | 2021-01-23 05:20 | NUR ---
Placed in room 6 . Placed on cardiac cath lab technologist, blood pressure machine and pulse oximeter. To gown for exam. Side rails up. Report given to CALIXTO CASTRO.
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
--- NOTE | 2021-01-23 05:43 | NUR ---
MICHAELA Page at bedside examining patient.
[2021-01-23] MEDS ORDERED: levETIRAcetam 750 MG in NS 100 ML IV ONE (06:00)
[2021-01-23] MEDS ORDERED: FOLIC ACID 1 MG, THIAMINE HCL 100 MG, MAGNESIUM SULFATE 1 GM, MVI 10 ML in NACL 0.9% 1,... IV ONE (06:00)
[2021-01-23] MEDS ORDERED: NACL 0.9% 1,000 ML IV ONE (06:00)
--- NOTE | 2021-01-23 06:01 | NUR ---
# 18 gauge angiocath placed to rt wrist. Use of asceptic technique. Opsite placed over site. Blood return noted. Blood for lab drawn from site. Flushed with 10 cc of normal saline. No evidence of infiltration noted. Patient tolerated well.
[2021-01-23] MEDS ORDERED: MAGNESIUM SULFATE 1 GM/2 ML VIAL ONE (06:03)
[2021-01-23] MEDS ORDERED: THIAMINE HCL 100 MG/ML VIAL ONE (06:03)
[2021-01-23] MEDS ORDERED: MVI 10 ML VIAL IV ONE (06:03)
[2021-01-23] MEDS ORDERED: FOLIC ACID 5 MG/ML VIAL IV ONE (06:03)
[2021-01-23 06:18] LABS: BASOPHILS # (AUTO) 0.1 K/uL (0.0-0.2); BASOPHILS % (AUTO) 1.1 % (0.0-2.0); EOSINOPHILS # (AUTO) 0.1 K/uL (0.0-0.4); EOSINOPHILS % (AUTO) 1.8 % (0.0-4.0); HEMATOCRIT 41.3 % (36-54); HEMOGLOBIN 14.2 g/dL (14.0-18.0); LYMPHOCYTES # (AUTO) 2.5 K/uL (1.0-5.5); LYMPHOCYTES % (AUTO) 42.4 % (20.5-51.5); MEAN CORPUSCULAR HEMOGLOBIN 30 pg (27-31); MEAN CORPUSCULAR HGB CONC 34 % (32-36); MEAN CORPUSCULAR VOLUME 87 fL (79.0-98.0); MONOCYTES # (AUTO) 0.3 K/uL (0.0-1.0); MONOCYTES % (AUTO) 5.7 % (1.7-9.3); NEUTROPHILS # (AUTO) 2.9 K/uL (1.8-7.7); PLATELET COUNT (AUTO) 281 K/uL (130-430); RED BLOOD CELL COUNT(AUTO) 4.76 MIL/uL (4.2-6.2); RED CELL DISTRIBUTION WIDTH 13.4 % (9.0-15.0); WHITE BLOOD COUNT (AUTO) 5.9 K/uL (4.8-10.8)
[2021-01-23] MEDS ORDERED: LORazepam 2 MG/ML VIAL ONE (06:22)
[2021-01-23] MEDS ORDERED: PHENYTOIN SODIUM 250 MG/5 ML INJ. VIAL IV ONE (06:26)
[2021-01-23] MEDS ORDERED: LORazepam 2 MG/ML VIAL IVP ONE (06:30)
[2021-01-23] MEDS ORDERED: PHENYTOIN SODIUM INJ 500 MG in NS 100 ML IV ONE (06:30)
--- NOTE | 2021-01-23 06:30 | NUR ---
medication administered as ordered.
[2021-01-23 06:35] LABS: CALCIUM 8.7 mg/dL (8.4-11.0); CREATININE 0.85 mg/dL (0.55-1.30); POTASSIUM 3.7 mmol/L (3.5-5.1)
[2021-01-23 06:39] LABS: ALBUMIN 3.6 g/dL (3.4-4.8); PHENYTOIN (DILANTIN) 0.7 ug/mL (10.0-20.0); TOTAL BILIRUBIN 0.3 mg/dL (0.0-1.0)
--- NOTE | 2021-01-23 07:00 | NUR ---
Report given to GLORIA Henry to assume care of patient.
[2021-01-23 07:10] LABS: BARBITURATE, URINE NEGATIVE (NEG <=200); BENZODIAZEPINE, URINE POSITIVE (NEG <=150); CANNABINOID, URINE NEGATIVE (NEG <=50); COCAINE, URINE NEGATIVE (NEG <=150); METHAMPHETAMINES SCREEN,URINE NEGATIVE (NEG <=500); OPIATE, URINE NEGATIVE (NEG <=100); PHENCYCLIDINE SCREEN,URINE NEGATIVE (NEG <=25); UR TRICYCLIC ANTIDEPRESSANTS NEGATIVE (NEG <=300); URINE AMPHETAMINE NEGATIVE (NEG <=500); URINE METHADONE NEGATIVE (NEG <=200); URINE OXYCODONE SCREEN NEGATIVE (NEG <=100); URINE PROPOXYPHENE SCREEN NEGATIVE (NEG <=300)
--- NOTE | 2021-01-23 07:10 | NUR ---
ASSUMED CAR OF PT FROM CALIXTO CASTRO. PT IS SLEEPING NOW AND SEEMS CALM.
[2021-01-23] MEDS ORDERED: PHENYTOIN 100 MG CAPSULE PO ONE (08:30)
[2021-01-23] MEDS ORDERED: PHENYTOIN 100 MG CAPSULE ONE (09:00)
[2021-01-23 10:34] VITALS: BP_SYST 114
--- NOTE | 2021-01-23 10:34 | NUR ---
Patient given written and verbal discharge instructions and verbalizes understanding. ER MD discussed with patient the results and treatment provided. Patient in stable condition. ID arm band removed. IV catheter removed intact and dressing applied, no active bleeding. Rx of DILANTIN, KEPRA, LIBRIUM given. Patient educated on pain management and to follow up with PMD. Pain Scale 0/10. Opportunity for questions provided and answered. Medication side effect fact sheet provided.
== END 2021-01-23 10:34 | disposition home or self-care (01) ==
LOC: SED 05:14
DX: R56.9 Unspecified convulsions (principal); F10.10 Alcohol abuse, uncomplicated; I10 Essential (primary) hypertension; E03.9 Hypothyroidism, unspecified; E11.9 Type 2 diabetes mellitus without complications; K21.9 Gastro-esophageal reflux disease without esophagitis; J45.909 Unspecified asthma, uncomplicated; Z79.899 Other long term (current) drug therapy; Z88.0 Allergy status to penicillin; Z88.1 Allergy status to other antibiotic agents; Z91.018 Allergy to other foods; Y90.7 Blood alcohol level of 200-239 mg/100 ml
CPT/HCPCS: 36415; 80053; 80185; 80307; 85025; 96365; 96366; 96368; 96375; 99285; G0482; J1165; J1953; J2060; J3411; J3475; J3490

== ENCOUNTER 2021-02-09 02:16 | Emergency (ER) | payer MEDICAID ==
[~2021-02-09] VITALS: Ht 185.4 cm; Wt 81.6 kg
[2021-02-09 02:16] VITALS: BP_SYST 134
--- NOTE | 2021-02-09 02:30 | NUR ---
Patient to ER bed 5 to gown for evaluation. Side rails up.
--- NOTE | 2021-02-09 02:30 | NUR ---
Seizure precautions in place. Seizure pads applied to gurney. Side rails up.
--- NOTE | 2021-02-09 02:31 | NUR ---
Patient BIB by ALS/EMT. C/O seizure x today. Per reported, witness found patient -had seizure and called 911, Awake, alert, no seizure episode, place patient on monitor and pulse ox.
--- NOTE | 2021-02-09 02:35 | NUR ---
Alison maryjane in ED - 02/09/21 at 0251 by [email or web address] Patient reported, he had been sobber over 2 and half weeks, Tonight he was drinking couple alcohol with his epilepsy medications.
--- NOTE | 2021-02-09 02:35 | NUR ---
Patient reported, he had been sobered over 2 and half weeks, Tonight he was drinking couple alcohol with his epilepsy medications.
--- NOTE | 2021-02-09 03:01 | NUR ---
Patient states "I want to go home."
[2021-02-09] MEDS ORDERED: LORazepam 2 MG/ML VIAL IM ONE (03:15)
[2021-02-09] MEDS ORDERED: NACL 0.9% 1,000 ML IV ONE (03:15)
[2021-02-09] MEDS ORDERED: FOLIC ACID 1 MG, THIAMINE HCL 100 MG, MAGNESIUM SULFATE 1 GM, MVI 10 ML in NACL 0.9% 1,... IV ONE (03:15)
--- NOTE | 2021-02-09 03:17 | NUR ---
Patient seizure one episode ~ 30 sec, Dr. Najera notified.
[2021-02-09] MEDS ORDERED: LORazepam 2 MG/ML VIAL ONE (03:20)
--- NOTE | 2021-02-09 03:25 | NUR ---
Blood for labwork drawn from cranberry grower. Patient tolerated well.
[2021-02-09 03:33] LABS: BASOPHILS # (AUTO) 0.1 K/uL (0.0-0.2); BASOPHILS % (AUTO) 0.7 % (0.0-2.0); EOSINOPHILS # (AUTO) 0.2 K/uL (0.0-0.4); EOSINOPHILS % (AUTO) 2.6 % (0.0-4.0); HEMATOCRIT 44.8 % (36-54); HEMOGLOBIN 15.2 g/dL (14.0-18.0); LYMPHOCYTES % (AUTO) 42.4 % (20.5-51.5); MEAN CORPUSCULAR HEMOGLOBIN 29 pg (27-31); MEAN CORPUSCULAR HGB CONC 34 % (32-36); MEAN CORPUSCULAR VOLUME 86 fL (79.0-98.0); MONOCYTES # (AUTO) 0.5 K/uL (0.0-1.0); MONOCYTES % (AUTO) 7.1 % (1.7-9.3); NEUTROPHILS # (AUTO) 3.3 K/uL (1.8-7.7); NEUTROPHILS % (AUTO) 47.2 % (40.0-70.0); PLATELET COUNT (AUTO) 263 K/uL (130-430); RED BLOOD CELL COUNT(AUTO) 5.19 MIL/uL (4.2-6.2); RED CELL DISTRIBUTION WIDTH 13.2 % (9.0-15.0); WHITE BLOOD COUNT (AUTO) 7.1 K/uL (4.8-10.8)
--- NOTE | 2021-02-09 03:39 | NUR ---
# 22 gauge angiocath placed to Right Wrist. Use of asceptic technique. Opsite placed over site. Blood return noted. Flushed with 10 cc of normal saline. No evidence of infiltration noted. Patient tolerated well. Patient resting quietly. No acute distress noted. Vital signs within normal range. Seizure precautions in place. Seizure pads applied to [facility]. Side rails up.
[2021-02-09] MEDS ORDERED: MVI 10 ML VIAL IV ONE (03:41)
[2021-02-09] MEDS ORDERED: FOLIC ACID 5 MG/ML VIAL IV ONE (03:41)
[2021-02-09] MEDS ORDERED: MAGNESIUM SULFATE 1 GM/2 ML VIAL ONE (03:41)
[2021-02-09] MEDS ORDERED: THIAMINE HCL 100 MG/ML VIAL ONE (03:41)
[2021-02-09 03:46] LABS: CALCIUM 9.1 mg/dL (8.4-11.0); CREATININE 0.85 mg/dL (0.55-1.30); POTASSIUM 3.3 mmol/L (3.5-5.1)
[2021-02-09 03:51] LABS: BILIRUBIN,URINE NEGATIVE (NEGATIVE); BLOOD, URINE NEGATIVE (NEGATIVE); CLARITY/URINE CLEAR (CLEAR); COLOR,URINE YELLOW (YELLOW); GLUCOSE,URINE NEGATIVE (NEGATIVE); KETONES,URINE NEGATIVE (NEGATIVE); LEUKOCYTE ESTERASE ,URINE NEGATIVE (NEGATIVE); NITRITE, URINE NEGATIVE (NEGATIVE); PROTEIN URINE NEGATIVE (NEGATIVE); UROBILINOGEN,URINE 0.2 (0.2-1.0)
[2021-02-09 03:52] LABS: ALBUMIN 3.6 g/dL (3.4-4.8); TOTAL BILIRUBIN 0.1 mg/dL (0.0-1.0)
[2021-02-09 04:02] LABS: BARBITURATE, URINE NEGATIVE (NEG <=200); BENZODIAZEPINE, URINE NEGATIVE (NEG <=150); CANNABINOID, URINE NEGATIVE (NEG <=50); COCAINE, URINE NEGATIVE (NEG <=150); METHAMPHETAMINES SCREEN,URINE NEGATIVE (NEG <=500); OPIATE, URINE NEGATIVE (NEG <=100); PHENCYCLIDINE SCREEN,URINE NEGATIVE (NEG <=25); UR TRICYCLIC ANTIDEPRESSANTS NEGATIVE (NEG <=300); URINE AMPHETAMINE POSITIVE (NEG <=500); URINE METHADONE NEGATIVE (NEG <=200); URINE OXYCODONE SCREEN NEGATIVE (NEG <=100); URINE PROPOXYPHENE SCREEN NEGATIVE (NEG <=300)
--- NOTE | 2021-02-09 04:11 | NUR ---
Patient is sleeping, Oxygen sat 95 % RA
[2021-02-09] MEDS ORDERED: fentaNYL CITRATE/PF 100 MCG/2 ML AMP IVP ONE (04:45)
[2021-02-09] MEDS ORDERED: LORazepam 2 MG/ML VIAL IVP ONE (04:45)
[2021-02-09] MEDS ORDERED: levETIRAcetam 500 MG in NS 100 ML IV ONE (05:00)
--- NOTE | 2021-02-09 05:09 | NUR ---
Patient resting quietly. No acute distress noted.
--- NOTE | 2021-02-09 05:52 | NUR ---
Patient transported to radiology via WHEELCHIAR, accompanied by RT.
--- NOTE | 2021-02-09 05:58 | NUR ---
Patient came back from CT scan.
--- NOTE | 2021-02-09 06:22 | NUR ---
Patient resting quietly. No acute distress noted. Vital signs within normal range.
--- NOTE | 2021-02-09 07:15 | NUR ---
PT IS SLEEPING IN BED, SNORING LOUDLY. NO S/SX OF DISTRESS, V/S STABLE
--- NOTE | 2021-02-09 07:16 | NUR ---
Report to GLORIA Kim and karla care of patient.
--- NOTE | 2021-02-09 07:20 | NUR ---
Alison wesley in ED - 02/09/21 at 0813 by [email or web address] PT IS AWAKE, RESTLESS, GETTING UP FROM BED AND WANDERING, DIRECTED BACK TO BED. MD UMANA
[2021-02-09] MEDS ORDERED: LIB25 PO (08:41)
[2021-02-09 08:50] VITALS: BP_SYST 137
--- NOTE | 2021-02-09 08:50 | NUR ---
Patient given written and verbal discharge instructions and verbalizes understanding. ER MD discussed with patient the results and treatment provided. Patient in stable condition. ID arm band removed. IV catheter removed intact and dressing applied, no active bleeding. Rx of LIBRIUM given. Patient educated on pain management and to follow up with PMD. Pain Scale 0/10. Opportunity for questions provided and answered. Medication side effect fact sheet provided.
== END 2021-02-09 08:50 | disposition home or self-care (01) ==
LOC: SED 02:16
DX: G40.909 Epilepsy, unspecified, not intractable, without status epilepticus (principal); F10.20 Alcohol dependence, uncomplicated; F15.10 Other stimulant abuse, uncomplicated; I10 Essential (primary) hypertension; E11.9 Type 2 diabetes mellitus without complications; K21.9 Gastro-esophageal reflux disease without esophagitis; J45.909 Unspecified asthma, uncomplicated; E03.9 Hypothyroidism, unspecified; Z88.0 Allergy status to penicillin; Z88.1 Allergy status to other antibiotic agents; Z91.018 Allergy to other foods; Z79.899 Other long term (current) drug therapy; Y90.7 Blood alcohol level of 200-239 mg/100 ml
CPT/HCPCS: 36415; 70450; 76376; 80053; 80307; 81003; 85025; 96365; 96366; 96368; 96372; 96375; 99285; G0482; J1953; J2060; J3010; J3411; J3475; J3490

== ENCOUNTER 2021-03-09 02:03 | Emergency (ER) | payer MEDICAID ==
[~2021-03-09] VITALS: Ht 185.4 cm; Wt 108.9 kg
[2021-03-09 02:03] VITALS: BP_SYST 141
[~2021-03-09 02:03] MED LIST changes: +LIB25 PO
--- NOTE | 2021-03-09 02:03 | NUR ---
Placed in room 2, Placed on cardiac nurse practitioner, blood pressure machine and pulse oximeter. To gown for exam. Side rails up. Report given to December.
--- NOTE | 2021-03-09 02:06 | NUR ---
Seizure precautions in place. Seizure pads applied to gurney. Side rails up.
--- NOTE | 2021-03-09 02:10 | NUR ---
Patient BIB by BLS/EMS . C/O seizure today. Per reported, witness called 911, patient had clonic -tonic seizure. Hx Epilepsy. Awake, alert, denies pain, abrasion forehead and right forearm.
--- NOTE | 2021-03-09 02:17 | NUR ---
ER Dr. Barraza at bedside examining patient.
--- NOTE | 2021-03-09 02:30 | NUR ---
CXR at bedside.
--- NOTE | 2021-03-09 02:35 | NUR ---
Blood for labwork drawn from fur dry cleaner. Patient tolerated well.
[2021-03-09 02:49] LABS: BASOPHILS # (AUTO) 0.1 K/uL (0.0-0.2); EOSINOPHILS # (AUTO) 0.1 K/uL (0.0-0.4); EOSINOPHILS % (AUTO) 1.4 % (0.0-4.0); HEMATOCRIT 42.8 % (36-54); HEMOGLOBIN 14.8 g/dL (14.0-18.0); LYMPHOCYTES % (AUTO) 37.6 % (20.5-51.5); MEAN CORPUSCULAR HEMOGLOBIN 30 pg (27-31); MEAN CORPUSCULAR HGB CONC 35 % (32-36); MEAN CORPUSCULAR VOLUME 86 fL (79.0-98.0); MONOCYTES # (AUTO) 0.4 K/uL (0.0-1.0); MONOCYTES % (AUTO) 6.9 % (1.7-9.3); NEUTROPHILS # (AUTO) 2.8 K/uL (1.8-7.7); NEUTROPHILS % (AUTO) 53.1 % (40.0-70.0); PLATELET COUNT (AUTO) 257 K/uL (130-430); RED BLOOD CELL COUNT(AUTO) 4.96 MIL/uL (4.2-6.2); RED CELL DISTRIBUTION WIDTH 13.8 % (9.0-15.0); WHITE BLOOD COUNT (AUTO) 5.2 K/uL (4.8-10.8)
[2021-03-09 03:00] LABS: CALCIUM 8.8 mg/dL (8.4-11.0); CREATININE 0.97 mg/dL (0.55-1.30); POTASSIUM 3.5 mmol/L (3.5-5.1)
[2021-03-09 03:06] LABS: ALBUMIN 3.6 g/dL (3.4-4.8)
[2021-03-09 03:20] LABS: TOTAL BILIRUBIN 0.3 mg/dL (0.0-1.0)
[2021-03-09 03:44] LABS: BILIRUBIN,URINE NEGATIVE (NEGATIVE); BLOOD, URINE NEGATIVE (NEGATIVE); CLARITY/URINE CLEAR (CLEAR); COLOR,URINE YELLOW (YELLOW); GLUCOSE,URINE NEGATIVE (NEGATIVE); KETONES,URINE NEGATIVE (NEGATIVE); LEUKOCYTE ESTERASE ,URINE NEGATIVE (NEGATIVE); NITRITE, URINE NEGATIVE (NEGATIVE); PROTEIN URINE 2+ (NEGATIVE); UROBILINOGEN,URINE 0.2 (0.2-1.0)
--- NOTE | 2021-03-09 03:45 | NUR ---
Urine specimen collected and sent to lab.
[2021-03-09 03:46] LABS: RBC,URINE 0-3 /HPF (0-3); WBC,URINE 0-3 /HPF (0-3)
[2021-03-09 03:47] LABS: BACTERIA,URINE FEW /HPF (None Seen)
[2021-03-09 03:53] LABS: BARBITURATE, URINE NEGATIVE (NEG <=200); BENZODIAZEPINE, URINE POSITIVE (NEG <=150); CANNABINOID, URINE NEGATIVE (NEG <=50); COCAINE, URINE NEGATIVE (NEG <=150); METHAMPHETAMINES SCREEN,URINE NEGATIVE (NEG <=500); PHENCYCLIDINE SCREEN,URINE NEGATIVE (NEG <=25); URINE AMPHETAMINE NEGATIVE (NEG <=500); URINE METHADONE NEGATIVE (NEG <=200)
[2021-03-09 03:54] LABS: OPIATE, URINE NEGATIVE (NEG <=100); UR TRICYCLIC ANTIDEPRESSANTS NEGATIVE (NEG <=300); URINE OXYCODONE SCREEN NEGATIVE (NEG <=100); URINE PROPOXYPHENE SCREEN NEGATIVE (NEG <=300)
--- NOTE | 2021-03-09 04:08 | NUR ---
Patient called for a ride.
[2021-03-09 04:27] VITALS: BP_SYST 141
--- NOTE | 2021-03-09 04:27 | NUR ---
Patient given written and verbal discharge instructions and verbalizes understanding. ER MD discussed with patient the results and treatment provided. Patient in stable condition. ID arm band removed. No Rx given. Patient educated on pain management and to follow up with PMD. Pain Scale 0/10. Opportunity for questions provided and answered. Medication side effect fact sheet provided.
== END 2021-03-09 04:27 | disposition home or self-care (01) ==
LOC: SED 02:03
DX: G40.909 Epilepsy, unspecified, not intractable, without status epilepticus (principal); F10.10 Alcohol abuse, uncomplicated; I10 Essential (primary) hypertension; E11.9 Type 2 diabetes mellitus without complications; J45.909 Unspecified asthma, uncomplicated; K21.9 Gastro-esophageal reflux disease without esophagitis; Y90.8 Blood alcohol level of 240 mg/100 ml or more; Z88.0 Allergy status to penicillin; Z88.1 Allergy status to other antibiotic agents; Z79.899 Other long term (current) drug therapy
CPT/HCPCS: 36415; 71045; 80053; 80307; 81000; 85025; 93005; 99285; G0482

== ENCOUNTER 2021-04-28 05:30 | Emergency (ER) | payer MEDICAID ==
[~2021-04-28] VITALS: Ht 185.4 cm; Wt 108.9 kg
[2021-04-28 05:34] VITALS: BP_SYST 139
--- NOTE | 2021-04-28 05:34 | NUR ---
Patient to ER bed 5 to gown for evaluation. Side rails up.
--- NOTE | 2021-04-28 05:37 | NUR ---
ER at bedside examining patient.
--- NOTE | 2021-04-28 05:40 | NUR ---
# 18 gauge angiocath placed to RIGHT WRIST. Use of asceptic technique. Opsite placed over site. Blood return noted. Blood for lab drawn from site. Flushed with 10 cc of normal saline. No evidence of infiltration noted. Patient tolerated well.
[2021-04-28] MEDS ORDERED: levETIRAcetam 1,000 MG in NS 90 ML IV ONE (05:45)
[2021-04-28] MEDS ORDERED: NACL 0.9% 1,000 ML IV ONE (05:45)
[2021-04-28] MEDS ORDERED: ONDANSETRON HCL 4 MG/2 ML VIAL IVP ONE (05:45)
[2021-04-28] MEDS ORDERED: LORazepam 2 MG/ML VIAL IVP ONE (05:45)
--- NOTE | 2021-04-28 05:50 | NUR ---
URINE SPECIMEN SENT TO LAB FOR ANALYSIS.
[2021-04-28 06:07] LABS: BASOPHILS # (AUTO) 0.1 K/uL (0.0-0.2); BASOPHILS % (AUTO) 0.8 % (0.0-2.0); EOSINOPHILS # (AUTO) 0.2 K/uL (0.0-0.4); EOSINOPHILS % (AUTO) 2.1 % (0.0-4.0); HEMATOCRIT 45.2 % (36-54); HEMOGLOBIN 15.9 g/dL (14.0-18.0); LYMPHOCYTES # (AUTO) 3.7 K/uL (1.0-5.5); MEAN CORPUSCULAR HEMOGLOBIN 30 pg (27-31); MEAN CORPUSCULAR HGB CONC 35 % (32-36); MEAN CORPUSCULAR VOLUME 86 fL (79.0-98.0); MONOCYTES # (AUTO) 0.5 K/uL (0.0-1.0); MONOCYTES % (AUTO) 6.5 % (1.7-9.3); NEUTROPHILS # (AUTO) 3.8 K/uL (1.8-7.7); NEUTROPHILS % (AUTO) 45.6 % (40.0-70.0); PLATELET COUNT (AUTO) 281 K/uL (130-430); RED BLOOD CELL COUNT(AUTO) 5.25 MIL/uL (4.2-6.2); RED CELL DISTRIBUTION WIDTH 14.9 % (9.0-15.0); WHITE BLOOD COUNT (AUTO) 8.3 K/uL (4.8-10.8)
--- NOTE | 2021-04-28 06:11 | NUR ---
PATIENT AAOX4 BIB ALS FROM [facility] D/T SEIZURE. PT C/O N/V. STATED HE CONSUMED ETOH. CURRENTLY STATING HAVING GENERALIZED BODY PAINS. VSS. WAS GIVEN VERSED BY EMS FOR AGITATION.
[2021-04-28 06:13] LABS: BARBITURATE, URINE NEGATIVE (NEG <=200); BENZODIAZEPINE, URINE POSITIVE (NEG <=150); CANNABINOID, URINE NEGATIVE (NEG <=50); COCAINE, URINE NEGATIVE (NEG <=150); METHAMPHETAMINES SCREEN,URINE NEGATIVE (NEG <=500); OPIATE, URINE NEGATIVE (NEG <=100); PHENCYCLIDINE SCREEN,URINE NEGATIVE (NEG <=25); UR TRICYCLIC ANTIDEPRESSANTS NEGATIVE (NEG <=300); URINE AMPHETAMINE NEGATIVE (NEG <=500); URINE METHADONE NEGATIVE (NEG <=200); URINE OXYCODONE SCREEN NEGATIVE (NEG <=100); URINE PROPOXYPHENE SCREEN NEGATIVE (NEG <=300)
--- NOTE | 2021-04-28 06:14 | NUR ---
MEDICATION ADMINISTERED ORDERED. Medicated per MD orders. IVF infusing with no s/s of infiltration at this time. Will cont to monitor
[2021-04-28 06:29] LABS: CREATININE 0.89 mg/dL (0.55-1.30); POTASSIUM 3.4 mmol/L (3.5-5.1)
[2021-04-28 06:35] LABS: ALBUMIN 3.6 g/dL (3.4-4.8); TOTAL BILIRUBIN 0.4 mg/dL (0.0-1.0)
--- NOTE | 2021-04-28 07:11 | NUR ---
REPORT GIVEN TO GLORIA DOUGLAS TO ASSUME CARE OF PATIENT.
--- NOTE | 2021-04-28 07:39 | NUR ---
EASILY AROUSED, RESP UNLABORED, SKIN WARM AND DRY. IV INFUSION.
--- NOTE | 2021-04-28 09:04 | NUR ---
EASILY AROUSED, SKIN WARM AND DRY. COMMUNICATES BRIEFLY AND QUICKLY FALLS BACK TO SLEEP
[2021-04-28 09:31] VITALS: BP_SYST 109
--- NOTE | 2021-04-28 09:32 | NUR ---
Patient given written and verbal discharge instructions and verbalizes understanding. ER MD discussed with patient the results and treatment provided. Patient in stable condition. ID arm band removed. IV catheter removed intact and dressing applied, no active bleeding. Patient educated on pain management and to follow up with PMD. Pain Scale 0 Opportunity for questions provided and answered. Medication side effect fact sheet provided.
== END 2021-04-28 09:31 | disposition home or self-care (01) ==
LOC: SED 05:30
DX: R56.9 Unspecified convulsions (principal); I10 Essential (primary) hypertension; E11.9 Type 2 diabetes mellitus without complications; E03.9 Hypothyroidism, unspecified; J45.909 Unspecified asthma, uncomplicated; Z88.1 Allergy status to other antibiotic agents; Z88.0 Allergy status to penicillin; Z91.018 Allergy to other foods; Z79.899 Other long term (current) drug therapy
CPT/HCPCS: 36415; 80053; 80307; 85025; 96365; 96375; 99285; G0482; J1953; J2060; J2405

== ENCOUNTER 2021-06-01 18:22 | Emergency (ER) | payer MEDICAID, SELFPAY ==
[~2021-06-01] VITALS: Ht 182.9 cm; Wt 99.8 kg
[2021-06-01 18:22] VITALS: BP_SYST 156
[2021-06-01] MEDS ORDERED: LORazepam 2 MG/ML VIAL ONE (19:09)
[2021-06-01] MEDS ORDERED: LORazepam 2 MG/ML VIAL IM ONE (19:15)
[2021-06-01 19:50] LABS: BASOPHILS # (AUTO) 0.1 K/uL (0.0-0.2); BASOPHILS % (AUTO) 0.8 % (0.0-2.0); EOSINOPHILS # (AUTO) 0.1 K/uL (0.0-0.4); HEMATOCRIT 44.1 % (36-54); HEMOGLOBIN 15.1 g/dL (14.0-18.0); LYMPHOCYTES # (AUTO) 2.3 K/uL (1.0-5.5); LYMPHOCYTES % (AUTO) 37.3 % (20.5-51.5); MEAN CORPUSCULAR HEMOGLOBIN 30 pg (27-31); MEAN CORPUSCULAR HGB CONC 34 % (32-36); MEAN CORPUSCULAR VOLUME 87 fL (79.0-98.0); MONOCYTES # (AUTO) 0.5 K/uL (0.0-1.0); MONOCYTES % (AUTO) 7.6 % (1.7-9.3); NEUTROPHILS # (AUTO) 3.2 K/uL (1.8-7.7); NEUTROPHILS % (AUTO) 52.3 % (40.0-70.0); PLATELET COUNT (AUTO) 241 K/uL (130-430); RED BLOOD CELL COUNT(AUTO) 5.09 MIL/uL (4.2-6.2); RED CELL DISTRIBUTION WIDTH 14.3 % (9.0-15.0); WHITE BLOOD COUNT (AUTO) 6.1 K/uL (4.8-10.8)
[2021-06-01] MEDS ORDERED: KETOROLAC TROMETHAMINE 30 MG VIAL IVP ONE (20:00)
[2021-06-01 20:06] LABS: CALCIUM 8.5 mg/dL (8.4-11.0); CREATININE 0.82 mg/dL (0.55-1.30); POTASSIUM 3.5 mmol/L (3.5-5.1)
[2021-06-01] MEDS ORDERED: levETIRAcetam 1,000 MG IV BAG 100 ML IV ONE (20:15)
[2021-06-01 22:20] VITALS: BP_SYST 131
== END 2021-06-01 22:20 | disposition home or self-care (01) ==
LOC: SED 18:22
DX: R56.9 Unspecified convulsions (principal); I10 Essential (primary) hypertension; E11.9 Type 2 diabetes mellitus without complications; K21.9 Gastro-esophageal reflux disease without esophagitis; E03.9 Hypothyroidism, unspecified; J45.909 Unspecified asthma, uncomplicated; F17.290 Nicotine dependence, other tobacco product, uncomplicated; Z88.0 Allergy status to penicillin; Z88.1 Allergy status to other antibiotic agents; Z79.899 Other long term (current) drug therapy
CPT/HCPCS: 36415; 80048; 85025; 96365; 96372; 96375; 99284; J1885; J1953; J2060

== ENCOUNTER 2021-06-08 00:29 | Inpatient (IN) | payer MEDICAID, SELFPAY ==
[~2021-06-08] VITALS: Ht 182.9 cm; Wt 101.6 kg
--- NOTE | 2021-06-08 00:32 | NUR ---
Placed in room 2 . Placed on quality assurance monitor body, blood pressure machine and pulse oximeter. To gown for exam. Side rails up. Report given to CALIXTO CASTRO.
--- NOTE | 2021-06-08 00:39 | NUR ---
Seizure precautions in place. Seizure pads applied to gurney. Side rails up.
--- NOTE | 2021-06-08 00:50 | NUR ---
PT ARRIVED BY BLS FROM [facility] POSTICAL D/T SEIZURE. VSS. PT BEGINNING TO WAKE UP. STATED HAVING HEAD ACHE. CURRENTLY STATING 5/10 ON THE PAIN SCALE. ARRIVED SOILED. DENIES ANY SOB OR CHEST PAIN.
[2021-06-08 00:52] VITALS: BP_SYST 147
--- NOTE | 2021-06-08 01:07 | NUR ---
DR. BARBOSA AT BEDSIDE FOR EVALUATION.
[2021-06-08] MEDS ORDERED: LORazepam 2 MG/ML VIAL ONE (01:12)
[2021-06-08] MEDS ORDERED: LORazepam 2 MG/ML VIAL IM ONE (01:15)
--- NOTE | 2021-06-08 01:15 | NUR ---
# 20 gauge angiocath placed to RIGHT WRIST. Use of asceptic technique. Opsite placed over site. Blood return noted. Blood for lab drawn from site. Flushed with 10 cc of normal saline. No evidence of infiltration noted. Patient tolerated well.
--- NOTE | 2021-06-08 01:40 | NUR ---
PATIENT TAKEN TO CT SCAN VIA GURNEY BY RADIOLOGY STAFF.
--- NOTE | 2021-06-08 01:50 | NUR ---
CAT SCAN CALLED NOTIFIED NURSE REGARDING PT HAVING ANOTHER SEIZURE DURING SCAN. MD NOTIFIED. ORDER GIVEN FOR ATIVAN 2MG IVP.
[2021-06-08] MEDS ORDERED: LORazepam 2 MG/ML VIAL IVP ONE (02:15)
[2021-06-08 02:22] LABS: BARBITURATE, URINE NEGATIVE (NEG <=200)
[2021-06-08 02:23] LABS: BENZODIAZEPINE, URINE POSITIVE (NEG <=150); CANNABINOID, URINE NEGATIVE (NEG <=50); COCAINE, URINE NEGATIVE (NEG <=150); METHAMPHETAMINES SCREEN,URINE NEGATIVE (NEG <=500); OPIATE, URINE NEGATIVE (NEG <=100); PHENCYCLIDINE SCREEN,URINE NEGATIVE (NEG <=25); URINE AMPHETAMINE NEGATIVE (NEG <=500); URINE METHADONE NEGATIVE (NEG <=200); URINE OXYCODONE SCREEN NEGATIVE (NEG <=100); URINE PROPOXYPHENE SCREEN NEGATIVE (NEG <=300)
[2021-06-08 02:23] LABS: BASOPHILS # (AUTO) 0.1 K/uL (0.0-0.2); BASOPHILS % (AUTO) 0.8 % (0.0-2.0); EOSINOPHILS # (AUTO) 0.1 K/uL (0.0-0.4); EOSINOPHILS % (AUTO) 1.5 % (0.0-4.0); HEMATOCRIT 45.4 % (36-54); HEMOGLOBIN 15.5 g/dL (14.0-18.0); LYMPHOCYTES # (AUTO) 2.5 K/uL (1.0-5.5); LYMPHOCYTES % (AUTO) 32.1 % (20.5-51.5); MEAN CORPUSCULAR HEMOGLOBIN 30 pg (27-31); MEAN CORPUSCULAR HGB CONC 34 % (32-36); MEAN CORPUSCULAR VOLUME 87 fL (79.0-98.0); MONOCYTES # (AUTO) 0.6 K/uL (0.0-1.0); MONOCYTES % (AUTO) 7.8 % (1.7-9.3); NEUTROPHILS # (AUTO) 4.4 K/uL (1.8-7.7); NEUTROPHILS % (AUTO) 57.8 % (40.0-70.0); PLATELET COUNT (AUTO) 215 K/uL (130-430); RED BLOOD CELL COUNT(AUTO) 5.25 MIL/uL (4.2-6.2); RED CELL DISTRIBUTION WIDTH 14.2 % (9.0-15.0); WHITE BLOOD COUNT (AUTO) 7.6 K/uL (4.8-10.8)
[2021-06-08 02:24] LABS: UR TRICYCLIC ANTIDEPRESSANTS NEGATIVE (NEG <=300)
--- NOTE | 2021-06-08 02:25 | NUR ---
Medication reconciliation completed with information provided by PATIENT. Any prior medication reconciliation on file was reviewed and corrected.
--- NOTE | 2021-06-08 02:52 | NUR ---
COVID SWAB COLLECTED AND SENT TO LAB.
--- NOTE | 2021-06-08 03:20 | NUR ---
APatient will be admitted to care of [facility]. Admitted to TELE unit. PENDING ROOM ASSIGNMENT. Belongings list completed. Complete and up to date summary report printed. SBAR report to be given at bedside with opportunity for questions.
[2021-06-08] MEDS ORDERED: FOLIC ACID 1 MG, THIAMINE HCL 100 MG, MAGNESIUM SULFATE 1 GM, MVI 10 ML in NACL 0.9% 1,... IV SCH (03:30)
[2021-06-08] MEDS ORDERED: LORazepam 2 MG/ML VIAL IVP PRN (03:30)
[2021-06-08] MEDS ORDERED: MAGNESIUM SULFATE 1 GM/2 ML VIAL ONE (04:19)
[2021-06-08] MEDS ORDERED: THIAMINE HCL 100 MG/ML VIAL ONE (04:19)
[2021-06-08] MEDS ORDERED: MVI 10 ML VIAL IV ONE (04:19)
[2021-06-08] MEDS ORDERED: FOLIC ACID 5 MG/ML VIAL IV ONE (04:19)
[2021-06-08] MEDS ORDERED: levETIRAcetam 1,000 MG in NS 100 ML IV ONE (04:30)
--- NOTE | 2021-06-08 07:08 | NUR ---
REPORT GIVEN TO GLORIA DOUGLAS TO ASSUME ALL CARE.
--- NOTE | 2021-06-08 07:16 | NUR ---
RECEIVED AND IN ROOM, PT EASY TO AROUSE, RESP UNLABORED, SKIN WARM AND DRY. VSS, SR ON MONITOR NO ECTOPY/ NO SEIZURE ARTIVITY. PADS IN PLACE TO RAILS IV SITE PATENT
--- NOTE | 2021-06-08 08:33 | NUR ---
EASILY AROUSED, DENIES PAIN, RESP UNLABORED, SKIN WARM AND DRY
[2021-06-08 10:20] VITALS: BP_SYST 115
--- NOTE | 2021-06-08 10:20 | NUR ---
Patient does not wish to proceed with medical care recommended by PALWILMA. Patient given information related to possible complications, up to and including , which could occur as a result of leaving hospital at this time. Patient verbalizes understanding of risks involved leaving against medical advice. Patient has signed AMA form.
[2021-06-08 17:09] LABS: ANION GAP 19 (5-15); CHLORIDE 98 mmol/L (98-107); GLUCOSE 96 mg/dL (70-99); POTASSIUM 3.2 mmol/L (3.5-5.1); SODIUM SERUM 134 mmol/L (136-145)
[2021-06-08 17:10] LABS: ALANINE AMINOTRANSFERASE 56 U/L (12-78); ALBUMIN 3.9 g/dL (3.4-4.8); ASPARTATE AMINOTRANSFERASE 52 U/L (10-37); CALCIUM 8.7 mg/dL (8.4-11.0); GFR AFRICAN AMERICAN 125 mL/min (>90); PHENYTOIN (DILANTIN) < 0.5 ug/mL (10.0-20.0); TOTAL BILIRUBIN 0.4 mg/dL (0.0-1.0); UREA NITROGEN, BLOOD 6 mg/dL (8-21); VALPROIC ACID < 3 ug/mL (50-100)
[2021-06-08 17:11] LABS: ALCOHOL, BLOOD < 3 mg/dL (<10)
== END 2021-06-09 10:20 | disposition left against medical advice (07) | DRG 53 ==
LOC: SED 00:29 → STU 03:16
PROVIDERS: ADMIT Preventive Medicine Preventive Medicine/Occupational Environmental Medicine; ATTEND Preventive Medicine Preventive Medicine/Occupational Environmental Medicine
DX: G40.909 Epilepsy, unspecified, not intractable, without status epilepticus (principal); E11.22 Type 2 diabetes mellitus with diabetic chronic kidney disease; E87.1 Hypo-osmolality and hyponatremia; E03.9 Hypothyroidism, unspecified; F10.10 Alcohol abuse, uncomplicated; I12.9 Hypertensive chronic kidney disease with stage 1 through stage 4 chronic kidney disease, or unspecified chronic kidney disease; I25.10 Atherosclerotic heart disease of native coronary artery without angina pectoris; J45.909 Unspecified asthma, uncomplicated; K21.9 Gastro-esophageal reflux disease without esophagitis; K50.90 Crohn's disease, unspecified, without complications; N18.9 Chronic kidney disease, unspecified; Z53.29 Procedure and treatment not carried out because of patient's decision for other reasons; R74.01 Elevation of levels of liver transaminase levels; Z20.822 Contact with and (suspected) exposure to COVID-19; Z88.0 Allergy status to penicillin; Z88.8 Allergy status to other drugs, medicaments and biological substances; Z91.018 Allergy to other foods; Z79.899 Other long term (current) drug therapy
CPT/HCPCS: 36415; 70450-TC; 72125-TC; 76376; 80053; 80164; 80185; 80307; 83735; 85025; 93005; 96365; 96368; 96372; 96375; 99285; G0378; G0482; J1953; J2060; J3411; J3475; J3490

== ENCOUNTER 2021-07-10 03:57 | Inpatient (IN) | payer MEDICAID, SELFPAY ==
[~2021-07-10] VITALS: Ht 182.9 cm; Wt 99.8 kg
[2021-07-10 03:57] VITALS: BP_SYST 148
[~2021-07-10 03:57] MED LIST changes: -CLE150 PO
--- NOTE | 2021-07-10 03:57 | NUR ---
Pt report received. Pt AAOx3, slurred speech, smells of ETOH. Per EMS, pt experienced a witnessed seizure episode while at [facility], lasting approx. 2 min. VSS, NAD noted at this time.
--- NOTE | 2021-07-10 03:57 | NUR ---
Patient to ER bed 6 to gown for evaluation. Side rails up. Report given to GLORIA LYNCH.
--- NOTE | 2021-07-10 04:00 | NUR ---
Seizure precautions in place. Seizure pads applied to gurney. Side rails up.
--- NOTE | 2021-07-10 04:07 | NUR ---
ER at bedside examining patient.
[2021-07-10] MEDS ORDERED: FOLIC ACID 5 MG/ML VIAL IV ONE (04:13)
[2021-07-10] MEDS ORDERED: THIAMINE HCL 100 MG/ML VIAL ONE (04:13)
[2021-07-10] MEDS ORDERED: MAGNESIUM SULFATE 1 GM/2 ML VIAL ONE (04:13)
[2021-07-10] MEDS ORDERED: MVI 10 ML VIAL IV ONE (04:13)
[2021-07-10] MEDS ORDERED: FOLIC ACID 1 MG, THIAMINE HCL 100 MG, MAGNESIUM SULFATE 1 GM, MVI 10 ML in NACL 0.9% 1,... IV ONE (04:15)
[2021-07-10] MEDS ORDERED: LORazepam 2 MG/ML VIAL IVP ONE ×4 (04:15→11:00)
[2021-07-10] MEDS ORDERED: NACL 0.9% 1,000 ML IV ONE (04:15)
[2021-07-10 04:54] LABS: BASOPHILS # (AUTO) 0.1 K/uL (0.0-0.2); BASOPHILS % (AUTO) 0.9 % (0.0-2.0); EOSINOPHILS # (AUTO) 0.1 K/uL (0.0-0.4); EOSINOPHILS % (AUTO) 1.4 % (0.0-4.0); HEMATOCRIT 44.1 % (36-54); HEMOGLOBIN 15.1 g/dL (14.0-18.0); LYMPHOCYTES # (AUTO) 2.9 K/uL (1.0-5.5); LYMPHOCYTES % (AUTO) 45.1 % (20.5-51.5); MEAN CORPUSCULAR HEMOGLOBIN 30 pg (27-31); MEAN CORPUSCULAR HGB CONC 34 % (32-36); MEAN CORPUSCULAR VOLUME 87 fL (79.0-98.0); MONOCYTES # (AUTO) 0.5 K/uL (0.0-1.0); NEUTROPHILS # (AUTO) 2.9 K/uL (1.8-7.7); NEUTROPHILS % (AUTO) 45.6 % (40.0-70.0); PLATELET COUNT (AUTO) 231 K/uL (130-430); RED BLOOD CELL COUNT(AUTO) 5.08 MIL/uL (4.2-6.2); WHITE BLOOD COUNT (AUTO) 6.5 K/uL (4.8-10.8)
[2021-07-10 04:59] LABS: BARBITURATE, URINE NEGATIVE (NEG <=200); BENZODIAZEPINE, URINE POSITIVE (NEG <=150); CANNABINOID, URINE NEGATIVE (NEG <=50); COCAINE, URINE NEGATIVE (NEG <=150); METHAMPHETAMINES SCREEN,URINE NEGATIVE (NEG <=500); OPIATE, URINE NEGATIVE (NEG <=100); PHENCYCLIDINE SCREEN,URINE NEGATIVE (NEG <=25); UR TRICYCLIC ANTIDEPRESSANTS NEGATIVE (NEG <=300); URINE AMPHETAMINE NEGATIVE (NEG <=500); URINE METHADONE NEGATIVE (NEG <=200); URINE OXYCODONE SCREEN NEGATIVE (NEG <=100); URINE PROPOXYPHENE SCREEN NEGATIVE (NEG <=300)
--- NOTE | 2021-07-10 05:08 | NUR ---
Pt experienced tonic-clonic seizure lasting approximately [address] Najera at bedside. Pt given Ativan 1 mg IVP per verbal order. Pt in post-ictal state. SPO2 92% RA, placed on O2 at 2 LPM/NC, SPO2 increased to 98%.
[2021-07-10] MEDS ORDERED: LORazepam 2 MG/ML VIAL ONE ×2 (05:11→10:53)
[2021-07-10] MEDS ORDERED: levETIRAcetam 500 MG TABLET PO ONE (05:15)
[2021-07-10] MEDS ORDERED: PHENYTOIN SODIUM INJ 1,000 MG in NS 100 ML IV ONE (05:15)
--- NOTE | 2021-07-10 05:15 | NUR ---
Pt difficult to arouds, but withdraws to painful stimuli. VSS. PVCs to cardiac cath technologist. Dr. Najera made aware.
[2021-07-10 05:17] LABS: CALCIUM 8.6 mg/dL (8.4-11.0); CREATININE 0.75 mg/dL (0.55-1.30); POTASSIUM 3.2 mmol/L (3.5-5.1)
[2021-07-10] MEDS ORDERED: LORazepam 2 MG/ML VIAL IM ONE (05:18)
[2021-07-10 05:24] LABS: ALBUMIN 3.6 g/dL (3.4-4.8); TOTAL BILIRUBIN 0.3 mg/dL (0.0-1.0)
[2021-07-10] MEDS ORDERED: PHENYTOIN SODIUM 250 MG/5 ML INJ. VIAL IV ONE (05:33)
--- NOTE | 2021-07-10 05:35 | NUR ---
Pt experienced another tonic-clonic seizure lastin approx 40 sec.
--- NOTE | 2021-07-10 05:50 | NUR ---
Pt in post-ictal state. Awakens to name, mumbled speech. VSS.
--- NOTE | 2021-07-10 06:25 | NUR ---
Dr. Pickett at bedside to assess pt.
--- NOTE | 2021-07-10 06:30 | NUR ---
Note maryjaen in EDM - 07/10/21 at 0657 by SDEDAJ Pt difficult to arouds, but withdraws to painful stimuli. VSS. PVCs to air compressor engineer.
--- NOTE | 2021-07-10 06:30 | NUR ---
Pt difficult to arouse, but withdraws to painful stimuli. VSS. PVCs to monitor technician.
--- NOTE | 2021-07-10 06:52 | NUR ---
Pt spontaneously moves upper extremities and makes grunting sounds. Pt withdraws to painful stimuli. B/P 103/68 and multiple PVCs per concrete swimming pool installer, HR 97. Dr. Pickett made aware.
--- NOTE | 2021-07-10 06:55 | NUR ---
Notifieed ED Admitting regarding Dr. Pickett request for admission/transfer per facesheet: [facility]
--- NOTE | 2021-07-10 07:01 | NUR ---
Spoke to Jared Márquez [facility] Taxation Accountant, called back and was given clinical info. Taxation Accountant gave auth to admit. Per Facesheet: [facility] Dr. Carlos is verification engineer for [facility]. [phone] TRACKING #: [id number]
--- NOTE | 2021-07-10 07:05 | NUR ---
Pt report given to GLORIA Richardson.
--- NOTE | 2021-07-10 07:20 | NUR ---
admit orders rec'd from Dr. Carlos
--- NOTE | 2021-07-10 07:39 | NUR ---
called Med surg for tele bed
--- NOTE | 2021-07-10 08:06 | NUR ---
Pt. sleeping, VSS
--- NOTE | 2021-07-10 08:35 | NUR ---
CONSULTATION PAGED/CALLED Reason for Consultation: ABNORMAL EKG Person Who was Notified: DR CACERES Consulting Physician: DR CACERES Wood Block Artist Specialty: CARDIO Ordering Physician: ERICA SPOKE TO IN HOSPITAL
--- NOTE | 2021-07-10 08:40 | NUR ---
went to take pt. to tele but IV was out
--- NOTE | 2021-07-10 08:41 | NUR ---
unable to reconcile meds with pt. at this time
--- NOTE | 2021-07-10 09:00 | NUR ---
ER at bedside examining patient.
[2021-07-10] MEDS ORDERED: LEVE750T4 PO (09:16)
--- NOTE | 2021-07-10 09:16 | NUR ---
pt more awake and alert, reviewed meds. pt can only verify BP meds. and that keppra has been reduced to 750mg bid
[2021-07-10] MEDS ORDERED: POTASSIUM CHLORIDE 10 MEQ TAB.PRT.SR PO ONE (10:00)
[2021-07-10] MEDS ORDERED: METOPROLOL TARTRATE 25 MG TABLET PO ONE (10:00)
--- NOTE | 2021-07-10 10:03 | NUR ---
after multiple attempts to place IV by nsg. staff, Dr. Pickett placed IJ #[id number] with U/S guide
[2021-07-10 10:30] VITALS: BP_SYST 150
--- NOTE | 2021-07-10 10:30 | NUR ---
Patient will be admitted to care of Admitted to tele unit. Will go to room 104B. Belongings list completed. Complete and up to date summary report printed. SBAR report given at bedside with Lindsey opportunity for questions.
--- NOTE | 2021-07-10 10:30 | NUR ---
PT ON UNIT: PT ARRIVE ON TELE UNIT VIA GURNEY. BELONGING WITH PT, IV IN PLACE AND INTACT, BED LOCKED AND IN LOW POSITION. CALL LIGHT WITH IN REACH, BED ALARM ON.
--- NOTE | 2021-07-10 10:52 | NUR ---
HIGH ALERT NOTE: WAS HERE AND GAVE A STAT VERBAL ORDER TO GIVE ATIVAN DUE TO PATIENT HAVING A TREMORS SECONDARY TO ALCOHOL WITHDRAWAL.
[2021-07-10] MEDS ORDERED: ENALAPRILAT DIHYDRATE 1.25 MG/ML VIAL IVP PRN (11:00)
[2021-07-10] MEDS ORDERED: BANANA BAG 1 EA, FOLIC ACID 1 MG, THIAMINE HCL 100 MG, MAGNESIUM SULFATE 1 GM, MVI 10 M... IV SCH ×5 (11:00)
[2021-07-10] MEDS ORDERED: LORazepam 2 MG/ML VIAL IVP PRN (11:00)
[2021-07-10] MEDS ORDERED: hydrALAZINE HCL 20 MG/ML VIAL IVP PRN (11:00)
[2021-07-10] MEDS: NACL 0.9% 1,000 ML IV SCH ×2 (11:05→14:10)
[2021-07-10 16:00] VITALS: BP_SYST 115
--- NOTE | 2021-07-10 16:04 | NUR ---
ATTENDING MD DR MALDONADO WAS CALLED, RE: PT DECIDED TO GO AMA. SPOKE TO BOBO.
--- NOTE | 2021-07-10 16:25 | NUR ---
AMA: Patient does not wish to proceed with medical care recommended by Dr Carlos. Patient given information related to possible complications, up to and including , which could occur as a result of leaving hospital at this time. Patient verbalizes understanding of risks involved leaving against medical advice. Patient has signed AMA form.Removed IV, put gauze and tape on, no bleeding. Security escorted pt off property. Belonging with pt, including cell phone.
[2021-07-10] MEDS ORDERED: METOPROLOL TARTRATE 25 MG TABLET PO SCH (21:00)
[2021-07-10] MEDS ORDERED: DIVALPROEX SODIUM 500 MG TABLET( DEPAKOTE) PO SCH (21:00)
[2021-07-10] MEDS ORDERED: levETIRAcetam 500 MG TABLET PO SCH (21:00)
[2021-07-11] MEDS ORDERED: FOLIC ACID 1 MG, MVI 10 ML in NACL 0.9% 1,000 ML IV SCH (09:00)
[2021-07-11] MEDS ORDERED: THIAMINE HCL 100 MG, MAGNESIUM SULFATE 1 GM in NS 100 ML IV SCH (09:00)
== END 2021-07-10 16:25 | disposition left against medical advice (07) | DRG 53 ==
LOC: SED 03:57 → STU 07:19
PROVIDERS: ADMIT Internal Medicine Hospice and Palliative Medicine; ATTEND Internal Medicine Hospice and Palliative Medicine
DX: G40.409 Other generalized epilepsy and epileptic syndromes, not intractable, without status epilepticus (principal); E66.01 Morbid (severe) obesity due to excess calories; F10.129 Alcohol abuse with intoxication, unspecified; I10 Essential (primary) hypertension; Y90.9 Presence of alcohol in blood, level not specified; Z20.822 Contact with and (suspected) exposure to COVID-19; I49.3 Ventricular premature depolarization; Z86.16 Personal history of COVID-19; Z88.1 Allergy status to other antibiotic agents; Z88.0 Allergy status to penicillin; Z91.018 Allergy to other foods; Z68.29 Body mass index [BMI] 29.0-29.9, adult
CPT/HCPCS: 36415; 80053; 80307; 83690; 83735; 85025; 93005; 99285; G0378; G0482; J1165; J2060; J3411; J3475; J3490; J7030

== ENCOUNTER 2021-08-21 22:56 | Emergency (ER) | payer MEDICAID, SELFPAY ==
[~2021-08-21] VITALS: Ht 182.9 cm; Wt 99.8 kg
[~2021-08-21 22:56] MED LIST changes: -CAT1PAT TD; -DIVA500T4 PO; -GLIP5TAB13; +LEVE750T4 PO
[2021-08-21 23:00] VITALS: BP_SYST 131
--- NOTE | 2021-08-21 23:20 | NUR ---
Placed in room 6 . Placed on dresser tender, blood pressure machine and pulse oximeter. To gown for exam. Side rails up. Report given to LOC CASTRO.
[2021-08-21] MEDS ORDERED: LORazepam 2 MG/ML VIAL ONE (23:28)
[2021-08-21] MEDS ORDERED: LORazepam 2 MG/ML VIAL IM ONE (23:30)
[2021-08-21] MEDS ORDERED: LORazepam 2 MG/ML VIAL IVP ONE ×2 (23:45)
[2021-08-21] MEDS ORDERED: NACL 0.9% 1,000 ML IV ONE ×2 (23:45)
[2021-08-22] MEDS ORDERED: MAGNESIUM SULFATE 1 GM/2 ML VIAL IVP ONE
[2021-08-22] MEDS ORDERED: NACL 0.9% 1,000 ML IV ONE
[2021-08-22] MEDS ORDERED: LORazepam 2 MG/ML VIAL IVP ONE
--- NOTE | 2021-08-22 00:30 | NUR ---
# 20 gauge angiocath placed to LFA. Use of asceptic technique. Opsite placed over site. Blood return noted. Flushed with 10 cc of normal saline. No evidence of infiltration noted. Patient tolerated well.
[2021-08-22 01:06] LABS: EOSINOPHILS # (AUTO) 0.1 K/uL (0.0-0.4); EOSINOPHILS % (AUTO) 2.1 % (0.0-4.0); HEMATOCRIT 44.5 % (36-54); HEMOGLOBIN 14.9 g/dL (14.0-18.0); LYMPHOCYTES # (AUTO) 1.7 K/uL (1.0-5.5); LYMPHOCYTES % (AUTO) 49.2 % (20.5-51.5); MEAN CORPUSCULAR HEMOGLOBIN 30 pg (27-31); MEAN CORPUSCULAR HGB CONC 34 % (32-36); MEAN CORPUSCULAR VOLUME 90 fL (79.0-98.0); MONOCYTES # (AUTO) 0.3 K/uL (0.0-1.0); NEUTROPHILS # (AUTO) 1.4 K/uL (1.8-7.7); NEUTROPHILS % (AUTO) 39.7 % (40.0-70.0); PLATELET COUNT (AUTO) 233 K/uL (130-430); RED BLOOD CELL COUNT(AUTO) 4.95 MIL/uL (4.2-6.2); RED CELL DISTRIBUTION WIDTH 14.2 % (9.0-15.0); WHITE BLOOD COUNT (AUTO) 3.5 K/uL (4.8-10.8)
[2021-08-22 01:15] LABS: BILIRUBIN,URINE NEGATIVE (NEGATIVE); BLOOD, URINE NEGATIVE (NEGATIVE); CLARITY/URINE CLEAR (CLEAR); COLOR,URINE YELLOW (YELLOW); GLUCOSE,URINE NEGATIVE (NEGATIVE); KETONES,URINE NEGATIVE (NEGATIVE); LEUKOCYTE ESTERASE ,URINE NEGATIVE (NEGATIVE); NITRITE, URINE NEGATIVE (NEGATIVE); PROTEIN URINE NEGATIVE (NEGATIVE); UROBILINOGEN,URINE 0.2 (0.2-1.0)
[2021-08-22 01:22] LABS: CREATININE 0.6 mg/dL (0.55-1.30); POTASSIUM 3.9 mmol/L (3.5-5.1)
--- NOTE | 2021-08-22 01:30 | NUR ---
Pt refusing to keep cardiac leads on, pulse ox, BP cuff and oxygen on. Pt educated on importance of montoring. Verbalized understanding. Pt was observed removing wires again after RN left room.
[2021-08-22 01:33] LABS: TOTAL BILIRUBIN 0.2 mg/dL (0.0-1.0)
[2021-08-22 01:37] LABS: BARBITURATE, URINE POSITIVE (NEG <=200); BENZODIAZEPINE, URINE POSITIVE (NEG <=150); CANNABINOID, URINE NEGATIVE (NEG <=50); COCAINE, URINE NEGATIVE (NEG <=150); METHAMPHETAMINES SCREEN,URINE NEGATIVE (NEG <=500); OPIATE, URINE NEGATIVE (NEG <=100); PHENCYCLIDINE SCREEN,URINE NEGATIVE (NEG <=25); UR TRICYCLIC ANTIDEPRESSANTS NEGATIVE (NEG <=300); URINE AMPHETAMINE NEGATIVE (NEG <=500); URINE METHADONE NEGATIVE (NEG <=200); URINE OXYCODONE SCREEN NEGATIVE (NEG <=100); URINE PROPOXYPHENE SCREEN NEGATIVE (NEG <=300)
--- NOTE | 2021-08-22 02:45 | NUR ---
Pt continues to remove cardiac leads, pulse ox, BP cuff and oxygen. Pt educated on importance of montoring.
--- NOTE | 2021-08-22 03:15 | NUR ---
pt ambulates with a steady gait, RR even and unlabored, NAD.
--- NOTE | 2021-08-22 04:10 | NUR ---
Patient resting quietly. No acute distress noted.
--- NOTE | 2021-08-22 05:00 | NUR ---
Pt continues to remove cardiac leads, pulse ox, BP cuff and oxygen. Pt educated on importance of montoring.
--- NOTE | 2021-08-22 06:00 | NUR ---
PT AMBULATING AROUND ROOM WITH STEADY GAIT, RR EVEN AND UNLABORED, NAD.
[2021-08-22 06:40] VITALS: BP_SYST 145
--- NOTE | 2021-08-22 06:40 | NUR ---
Patient given written and verbal discharge instructions and verbalizes understanding. ER MD discussed with patient the results and treatment provided. Patient in stable condition. ID arm band removed. IV catheter removed intact and dressing applied, no active bleeding. Rx of NONE given. Patient educated on pain management and to follow up with PMD. Pain Scale 0/10. Opportunity for questions provided and answered. Medication side effect fact sheet provided.
== END 2021-08-22 06:40 | disposition home or self-care (01) ==
LOC: SED 22:56
DX: G40.89 Other seizures (principal); I10 Essential (primary) hypertension; E11.9 Type 2 diabetes mellitus without complications; E03.9 Hypothyroidism, unspecified; J45.909 Unspecified asthma, uncomplicated; K21.9 Gastro-esophageal reflux disease without esophagitis; Z88.0 Allergy status to penicillin; Z88.1 Allergy status to other antibiotic agents; Z79.899 Other long term (current) drug therapy
CPT/HCPCS: 36415; 70450; 71045; 76376; 80053; 80307; 81003; 82962; 83735; 85025; 93005; 96361; 96372; 96374; 96375; 99285; J2060 ×2; J3475; J7030

== ENCOUNTER 2021-09-11 04:54 | Emergency (ER) | payer MEDICAID, SELFPAY ==
[~2021-09-11] VITALS: Ht 182.9 cm; Wt 117.9 kg
--- NOTE | 2021-09-11 04:55 | NUR ---
Patient to ER bed 1 to gown for evaluation. Side rails up. Report given to Roberto Carlos
[2021-09-11 04:58] VITALS: BP_SYST 124
--- NOTE | 2021-09-11 05:00 | NUR ---
Dr. De La Cruz bedside for pt eval
[2021-09-11] MEDS ORDERED: levETIRAcetam 1,000 MG IV BAG 100 ML IV ONE (05:15)
--- NOTE | 2021-09-11 05:21 | NUR ---
Pt BIBA for ETOH/Seizure. Pt given Versed in route. Pt placed in bed Placed on monitor AOX0 Sleep apnea noted Will continue to monitor
[2021-09-11] MEDS ORDERED: LEVE500T21 PO (05:25)
--- NOTE | 2021-09-11 05:36 | NUR ---
Keppra not available in ordered dose. Per susan Garcia to admnister 500mg/100ml Keppra x2
--- NOTE | 2021-09-11 07:08 | NUR ---
Gave report to Ralf CASTRO
--- NOTE | 2021-09-11 07:22 | NUR ---
pt lying supine. snoaring. lab called regarding blood draw.
[2021-09-11] MEDS ORDERED: LORazepam 2 MG/ML VIAL ONE (07:48)
--- NOTE | 2021-09-11 07:50 | NUR ---
pt havving tonic clonic seizure last 2 minutes, ativan 2 mg ivp given vss
[2021-09-11] MEDS ORDERED: LORazepam 2 MG/ML VIAL IVP ONE (08:00)
--- NOTE | 2021-09-11 09:03 | NUR ---
pt requiring supplemental o2 for spo2 89% placed on 6 l nc spo2 95%
--- NOTE | 2021-09-11 09:37 | NUR ---
PT SUPINE IN BED SNOARING NO SEIZURE ACTIVITY NOTED VSS
--- NOTE | 2021-09-11 09:38 | NUR ---
PER NOT BLOOD WORK NEEDED
[2021-09-11] MEDS ORDERED: levETIRAcetam 500 MG TABLET PO ONE (13:15)
[2021-09-11 13:41] VITALS: BP_SYST 133
--- NOTE | 2021-09-11 13:43 | NUR ---
Patient given written and verbal discharge instructions and verbalizes understanding. MICHAELA SALAZAR MD discussed with patient the results and treatment provided. Patient in stable condition. ID arm band removed. IV catheter removed intact and dressing applied, no active bleeding. Patient educated on pain management and to follow up with PMD. Pain Scale 0. Opportunity for questions provided and answered. Medication side effect fact sheet provided.
== END 2021-09-11 13:43 | disposition home or self-care (01) ==
LOC: SED 04:54
DX: G40.909 Epilepsy, unspecified, not intractable, without status epilepticus (principal); F10.20 Alcohol dependence, uncomplicated; J45.909 Unspecified asthma, uncomplicated; I10 Essential (primary) hypertension; E11.9 Type 2 diabetes mellitus without complications; K21.9 Gastro-esophageal reflux disease without esophagitis; Z91.02 Food additives allergy status; Z88.0 Allergy status to penicillin; Z88.1 Allergy status to other antibiotic agents
CPT/HCPCS: 96365; 96375; 99291; J1953; J2060; 96374

== ENCOUNTER 2021-09-21 01:09 | Emergency (ER) | payer MEDICAID, SELFPAY ==
[~2021-09-21] VITALS: Ht 177.8 cm; Wt 68.0 kg
[~2021-09-21 01:09] MED LIST changes: +LEVE500T21 PO
[2021-09-21 01:28] VITALS: BP_SYST 140
--- NOTE | 2021-09-21 01:30 | NUR ---
Pt refused iv; however, was okay with phlebotomy obtaining blood. Pt cursing and yelling and is upset that EMS brought him into the hospital. Self professed CONTACT CENTER SPECIALIST and is aware of to stop drinking.
[2021-09-21 02:10] VITALS: BP_SYST 150
[2021-09-21] MEDS ORDERED: LORazepam 2 MG/ML VIAL ONE (02:25)
[2021-09-21] MEDS ORDERED: LORazepam 2 MG/ML VIAL IVP ONE (02:30)
[2021-09-21] MEDS ORDERED: levETIRAcetam 1,000 MG IV BAG 100 ML IV ONE (02:30)
[2021-09-21 02:41] LABS: CALCIUM 8.4 mg/dL (8.4-11.0); CREATININE 0.65 mg/dL (0.55-1.30); POTASSIUM 3.6 mmol/L (3.5-5.1)
--- NOTE | 2021-09-21 02:42 | NUR ---
Pt refused to allow me to stick iv for keppra admin. Pt is upset and now desires to leave AMA.
[2021-09-21 02:44] LABS: BASOPHILS % (AUTO) 0.3 % (0.0-2.0); EOSINOPHILS # (AUTO) 0.1 K/uL (0.0-0.4); EOSINOPHILS % (AUTO) 1.6 % (0.0-4.0); HEMATOCRIT 48.3 % (36-54); HEMOGLOBIN 16.8 g/dL (14.0-18.0); LYMPHOCYTES # (AUTO) 3.8 K/uL (1.0-5.5); LYMPHOCYTES % (AUTO) 50.1 % (20.5-51.5); MEAN CORPUSCULAR HEMOGLOBIN 31 pg (27-31); MEAN CORPUSCULAR HGB CONC 35 % (32-36); MEAN CORPUSCULAR VOLUME 89 fL (79.0-98.0); MONOCYTES # (AUTO) 0.5 K/uL (0.0-1.0); NEUTROPHILS # (AUTO) 3.1 K/uL (1.8-7.7); PLATELET COUNT (AUTO) 232 K/uL (130-430); RED CELL DISTRIBUTION WIDTH 14.8 % (9.0-15.0); WHITE BLOOD COUNT (AUTO) 7.5 K/uL (4.8-10.8)
--- NOTE | 2021-09-21 02:46 | NUR ---
Dr. Shelton spoke with patient and plan is now to just wait till electrolytes result. Pt back in room.
[2021-09-21 02:47] LABS: ALBUMIN 3.4 g/dL (3.4-4.8); TOTAL BILIRUBIN 0.6 mg/dL (0.0-1.0)
--- NOTE | 2021-09-21 03:16 | NUR ---
Pt refused to wait any longer. AMA form signed. Provider aware. Pt is AAOx4 with abc's intact. Ambulatory with steady gait.
== END 2021-09-21 03:16 | disposition home or self-care (01) ==
LOC: SED 01:09 → EDBD 01:09 → SED 03:16
DX: R56.9 Unspecified convulsions (principal); J45.909 Unspecified asthma, uncomplicated; K21.9 Gastro-esophageal reflux disease without esophagitis; E11.9 Type 2 diabetes mellitus without complications; E03.9 Hypothyroidism, unspecified; I10 Essential (primary) hypertension; Z88.0 Allergy status to penicillin; Z88.1 Allergy status to other antibiotic agents; Z79.899 Other long term (current) drug therapy
CPT/HCPCS: 36415; 80053; 82550; 85025; 96374; 99283; J2060; J1953

== ENCOUNTER 2023-02-22 04:07 | Inpatient (IN) | payer MEDICAID ==
[~2023-02-22] VITALS: Ht 172.7 cm; Wt 95.3 kg
[2023-02-22 04:14] VITALS: BP_SYST 148; PULSE 118; RESP 18; TEMP 98.4; O2SAT 97
[2023-02-22] MEDS ORDERED: levETIRAcetam 1,000 MG in NS 90 ML IV ONE (04:15)
[2023-02-22] MEDS ORDERED: NACL 0.9% 1,000 ML IV ONE (04:15)
[2023-02-22] MEDS ORDERED: LORazepam 2 MG/ML VIAL IVP ONE ×3 (04:15→07:15)
[2023-02-22] MEDS: LORazepam 2 MG/ML VIAL IM ONE ×2 (04:48→04:55)
[2023-02-22 05:18] LABS: BASOPHILS # (AUTO) 0.1 K/uL (0.0-0.2); BASOPHILS % (AUTO) 1.3 % (0.0-2.0); EOSINOPHILS # (AUTO) 0.3 K/uL (0.0-0.4); EOSINOPHILS % (AUTO) 5.1 % (0.0-4.0); HEMATOCRIT 33.7 % (36-54); HEMOGLOBIN 11.3 g/dL (14.0-18.0); LYMPHOCYTES # (AUTO) 2.6 K/uL (1.0-5.5); LYMPHOCYTES % (AUTO) 41.6 % (20.5-51.5); MEAN CORPUSCULAR HEMOGLOBIN 30 pg (27-31); MEAN CORPUSCULAR HGB CONC 34 % (32-36); MEAN CORPUSCULAR VOLUME 88 fL (79.0-98.0); MONOCYTES # (AUTO) 0.7 K/uL (0.0-1.0); MONOCYTES % (AUTO) 10.7 % (1.7-9.3); NEUTROPHILS # (AUTO) 2.6 K/uL (1.8-7.7); NEUTROPHILS % (AUTO) 41.3 % (40.0-70.0); PLATELET COUNT (AUTO) 211 K/uL (130-430); RED BLOOD CELL COUNT(AUTO) 3.84 MIL/uL (4.2-6.2); WHITE BLOOD COUNT (AUTO) 6.2 K/uL (4.8-10.8)
[2023-02-22] MEDS ORDERED: MORPHINE 2 MG/ML INJ. SYRINGE IVP ONE (05:30)
[2023-02-22 05:51] LABS: ANION GAP 13 (5-15); CALCIUM 9.4 mg/dL (8.4-11.0); CARBON DIOXIDE 23 mmol/L (23-29); CHLORIDE 102 mmol/L (98-107); CREATININE 0.75 mg/dL (0.55-1.30); GFR AFRICAN AMERICAN 152 mL/min (>90); GLUCOSE 112 mg/dL (74-106); POTASSIUM 3.2 mmol/L (3.5-5.1); SODIUM SERUM 138 mmol/L (136-145); UREA NITROGEN, BLOOD 10 mg/dL (8-21)
[2023-02-22 05:58] LABS: ALANINE AMINOTRANSFERASE 20 U/L (12-78); ALCOHOL, BLOOD 128 mg/dL (<10); ASPARTATE AMINOTRANSFERASE 26 U/L (10-37); LIPASE 189 U/L (73-393); PHENYTOIN (DILANTIN) 0.6 ug/mL (10.0-20.0); TOTAL BILIRUBIN 0.3 mg/dL (0.0-1.0); TOTAL PROTEIN, SERUM 7.6 g/dL (6.4-8.3)
[2023-02-22] MEDS ORDERED: LEVETIRACETAM IV ONE (06:00)
[2023-02-22] MEDS ORDERED: NS IV ONE (06:00)
[2023-02-22 06:06] LABS: GFR NON AFRICAN-AMERICAN 126 mL/min (>90)
[2023-02-22 06:10] LABS: BARBITURATE, URINE POSITIVE (NEG <=200); BENZODIAZEPINE, URINE POSITIVE (NEG <=150); CANNABINOID, URINE NEGATIVE (NEG <=50); COCAINE, URINE NEGATIVE (NEG <=150); METHAMPHETAMINES SCREEN,URINE NEGATIVE (NEG <=500); OPIATE, URINE NEGATIVE (NEG <=100); PHENCYCLIDINE SCREEN,URINE NEGATIVE (NEG <=25); UR TRICYCLIC ANTIDEPRESSANTS NEGATIVE (NEG <=300); URINE AMPHETAMINE NEGATIVE (NEG <=500); URINE METHADONE NEGATIVE (NEG <=200); URINE OXYCODONE SCREEN NEGATIVE (NEG <=100); URINE PROPOXYPHENE SCREEN NEGATIVE (NEG <=300)
[2023-02-22] MEDS ORDERED: DIPHENHYDRAMINE INJ 50 MG/ML VIAL IVP ONE ×2 (06:15→06:30)
[2023-02-22] MEDS ORDERED: MUPIROCIN 2% TOPICAL OINTMENT 22 GM NS PRN (10:15)
[2023-02-22] MEDS ORDERED: ACETAMINOPHEN 325 MG TABLET PO PRN ×2 (10:15→10:30)
[2023-02-22] MEDS ORDERED: MAGNESIUM SULFATE 50 ML IV PRN (10:15)
[2023-02-22] MEDS ORDERED: MORPHINE 2 MG/ML INJ. SYRINGE IVP PRN ×2 (10:15)
[2023-02-22] MEDS ORDERED: POTASSIUM CHLORIDE 20 MEQ TAB.PRT.SR PO PRN (10:15)
[2023-02-22] MEDS ORDERED: DOCUSATE SODIUM 100 MG CAPSULE PO PRN (10:15)
[2023-02-22] MEDS ORDERED: ZOLPIDEM TARTRATE 5 MG TABLET PO PRN (10:15)
[2023-02-22] MEDS ORDERED: D5NS 1,000 ML IV ONE (10:30)
[2023-02-22 16:16] VITALS: BP_SYST 131; PULSE 67; RESP 16; TEMP 97
[2023-02-22] MEDS: LORazepam 2 MG/ML VIAL IVP PRN ×4 (16:26→21:17)
[2023-02-22] MEDS: DIPHENHYDRAMINE HCL 12.5 MG/5 ML UDC PO PRN ×2 (16:35→21:36)
[2023-02-22 16:56] VITALS: O2SAT 96
[2023-02-22 17:27] LABS: CANNABINOID, URINE NEGATIVE (NEG <=50); COCAINE, URINE NEGATIVE (NEG <=150); METHAMPHETAMINES SCREEN,URINE NEGATIVE (NEG <=500); PHENCYCLIDINE SCREEN,URINE NEGATIVE (NEG <=25); UR TRICYCLIC ANTIDEPRESSANTS NEGATIVE (NEG <=300); URINE AMPHETAMINE NEGATIVE (NEG <=500); URINE METHADONE NEGATIVE (NEG <=200); URINE OXYCODONE SCREEN NEGATIVE (NEG <=100); URINE PROPOXYPHENE SCREEN NEGATIVE (NEG <=300)
[2023-02-22 19:35] VITALS: O2SAT 98
[2023-02-22 20:00] VITALS: BP_SYST 151; PULSE 71; RESP 18; TEMP 96.9; O2SAT 98
[2023-02-22] MEDS: PHENYTOIN 100 MG CAPSULE PO SCH (21:16)
[2023-02-22] MEDS: chlordiazePOXIDE HCL 25 MG CAPSULE PO SCH (21:16)
[2023-02-22] MEDS: levETIRAcetam 1,000 MG in NS 90 ML IV SCH (21:36)
[2023-02-23 02:01] VITALS: BP_SYST 138; PULSE 72; RESP 18; TEMP 97.1; O2SAT 98
[2023-02-23] MEDS: HYDROcodone/ACETAMIN 5-325 MG TAB (NORCO/ VICODIN) PO PRN ×3 (02:31→20:46)
[2023-02-23 02:40] VITALS: BP_SYST 153; PULSE 70; RESP 20; TEMP 96.3; O2SAT 99
[2023-02-23] MEDS: LORazepam 2 MG/ML VIAL IVP PRN ×10 (02:40→22:12)
[2023-02-23] MEDS: ONDANSETRON HCL 4 MG/2 ML VIAL IVP PRN ×2 (04:41→22:45)
[2023-02-23 07:09] LABS: BASOPHILS % (AUTO) 0.7 % (0.0-2.0); EOSINOPHILS # (AUTO) 0.2 K/uL (0.0-0.4); EOSINOPHILS % (AUTO) 4.8 % (0.0-4.0); HEMATOCRIT 33.8 % (36-54); LYMPHOCYTES # (AUTO) 1.6 K/uL (1.0-5.5); LYMPHOCYTES % (AUTO) 40.8 % (20.5-51.5); MEAN CORPUSCULAR HEMOGLOBIN 29 pg (27-31); MEAN CORPUSCULAR HGB CONC 33 % (32-36); MEAN CORPUSCULAR VOLUME 88 fL (79.0-98.0); MONOCYTES # (AUTO) 0.4 K/uL (0.0-1.0); MONOCYTES % (AUTO) 10.1 % (1.7-9.3); NEUTROPHILS # (AUTO) 1.7 K/uL (1.8-7.7); NEUTROPHILS % (AUTO) 43.6 % (40.0-70.0); PLATELET COUNT (AUTO) 164 K/uL (130-430); RED BLOOD CELL COUNT(AUTO) 3.83 MIL/uL (4.2-6.2); RED CELL DISTRIBUTION WIDTH 16.1 % (9.0-15.0); WHITE BLOOD COUNT (AUTO) 3.9 K/uL (4.8-10.8)
[2023-02-23 07:30] VITALS: O2SAT 99
[2023-02-23 07:39] LABS: CALCIUM 8.5 mg/dL (8.4-11.0); CREATININE 0.77 mg/dL (0.55-1.30); POTASSIUM 3.4 mmol/L (3.5-5.1)
[2023-02-23 08:01] VITALS: BP_SYST 146; PULSE 61; RESP 16; TEMP 97.3; O2SAT 99
[2023-02-23] MEDS: PHENYTOIN 100 MG CAPSULE PO SCH ×2 (09:00→20:46)
[2023-02-23] MEDS ORDERED: LOSARTAN POTASSIUM 50 MG TABLET (COZAAR) PO ONE (09:15)
[2023-02-23] MEDS: chlordiazePOXIDE HCL 25 MG CAPSULE PO SCH ×3 (09:35→20:46)
[2023-02-23] MEDS: DIPHENHYDRAMINE HCL 12.5 MG/5 ML UDC PO PRN ×2 (09:39→20:46)
[2023-02-23] MEDS: levETIRAcetam 1,000 MG in NS 90 ML IV SCH ×2 (09:39→20:45)
[2023-02-23] MEDS ORDERED: MAGNESIUM SULFATE 4 GM in D5W 250 ML IV ONE (11:00)
[2023-02-23 11:16] LABS: BARBITURATE, URINE POSITIVE (NEG <=200)
[2023-02-23 11:17] LABS: OPIATE, URINE POSITIVE (NEG <=100)
[2023-02-23 11:18] LABS: BENZODIAZEPINE, URINE POSITIVE (NEG <=150)
[2023-02-23] MEDS: D5NS 1,000 ML IV SCH ×2 (12:08→20:46)
[2023-02-23 12:30] VITALS: BP_SYST 140; PULSE 66; RESP 18; TEMP 97.6; O2SAT 98
[2023-02-23 20:00] VITALS: BP_SYST 157; PULSE 65; RESP 16; TEMP 97.6; O2SAT 99
[2023-02-24] MEDS: LORazepam 2 MG/ML VIAL IVP PRN ×6 (00:42→08:10)
[2023-02-24 01:19] VITALS: BP_SYST 136; PULSE 63; RESP 20; TEMP 98
[2023-02-24] MEDS: HYDROcodone/ACETAMIN 5-325 MG TAB (NORCO/ VICODIN) PO PRN ×2 (03:44→08:49)
[2023-02-24] MEDS: D5NS 1,000 ML IV SCH ×2 (05:00→12:20)
[2023-02-24] MEDS: DIPHENHYDRAMINE HCL 12.5 MG/5 ML UDC PO PRN (05:03)
[2023-02-24] MEDS: ONDANSETRON HCL 4 MG/2 ML VIAL IVP PRN (05:03)
[2023-02-24 05:07] LABS: CALCIUM 7.9 mg/dL (8.4-11.0); CREATININE 0.87 mg/dL (0.55-1.30); POTASSIUM 3.4 mmol/L (3.5-5.1)
[2023-02-24 05:10] VITALS: BP_SYST 158; PULSE 62; RESP 16; TEMP 96.8; O2SAT 99
[2023-02-24 05:20] LABS: BASOPHILS % (AUTO) 0.8 % (0.0-2.0); EOSINOPHILS # (AUTO) 0.2 K/uL (0.0-0.4); EOSINOPHILS % (AUTO) 5.5 % (0.0-4.0); HEMATOCRIT 31.9 % (36-54); HEMOGLOBIN 10.5 g/dL (14.0-18.0); LYMPHOCYTES # (AUTO) 1.6 K/uL (1.0-5.5); LYMPHOCYTES % (AUTO) 39.4 % (20.5-51.5); MEAN CORPUSCULAR HEMOGLOBIN 29 pg (27-31); MEAN CORPUSCULAR HGB CONC 33 % (32-36); MEAN CORPUSCULAR VOLUME 88 fL (79.0-98.0); MONOCYTES # (AUTO) 0.4 K/uL (0.0-1.0); MONOCYTES % (AUTO) 9.9 % (1.7-9.3); NEUTROPHILS # (AUTO) 1.8 K/uL (1.8-7.7); NEUTROPHILS % (AUTO) 44.4 % (40.0-70.0); PLATELET COUNT (AUTO) 157 K/uL (130-430); RED BLOOD CELL COUNT(AUTO) 3.61 MIL/uL (4.2-6.2); RED CELL DISTRIBUTION WIDTH 15.7 % (9.0-15.0); WHITE BLOOD COUNT (AUTO) 4.1 K/uL (4.8-10.8)
[2023-02-24 08:00] VITALS: BP_SYST 116; PULSE 65; RESP 18; TEMP 97.8; O2SAT 98
[2023-02-24] MEDS: PHENYTOIN 100 MG CAPSULE PO SCH (08:28)
[2023-02-24] MEDS: levETIRAcetam 1,000 MG in NS 90 ML IV SCH (08:31)
[2023-02-24] MEDS: chlordiazePOXIDE HCL 25 MG CAPSULE PO SCH (08:41)
[2023-02-24] MEDS ORDERED: LOSARTAN POTASSIUM 50 MG TABLET (COZAAR) PO SCH (09:00)
[2023-02-24 12:00] VITALS: BP_SYST 140; PULSE 71; RESP 20; TEMP 98.4; O2SAT 96
[2023-02-24 13:18] VITALS: BP_SYST 140; PULSE 76; RESP 20; TEMP 98.4; O2SAT 96
== END 2023-02-24 14:05 | disposition home or self-care (01) | DRG 53 ==
LOC: SED 04:07 → STU 10:26
PROVIDERS: ADMIT General Practice; ATTEND General Practice
PROC: 4A10X4Z Monitoring of Central Nervous Electrical Activity, External Approach (ICD-10-PCS; principal; 2023-02-23)
DX: G40.909 Epilepsy, unspecified, not intractable, without status epilepticus (principal); R65.10 Systemic inflammatory response syndrome (SIRS) of non-infectious origin without acute organ dysfunction; E66.9 Obesity, unspecified; E83.42 Hypomagnesemia; E87.6 Hypokalemia; F17.210 Nicotine dependence, cigarettes, uncomplicated; F11.20 Opioid dependence, uncomplicated; F19.10 Other psychoactive substance abuse, uncomplicated; F10.10 Alcohol abuse, uncomplicated; Z91.199 Patient's noncompliance with other medical treatment and regimen due to unspecified reason; Z68.31 Body mass index [BMI] 31.0-31.9, adult; Z88.0 Allergy status to penicillin
CPT/HCPCS: 36415; 70450-TC; 71045; 76376; 80048; 80053; 80178; 80185; 80307; 83037; 83690; 83735; 84484; 85025; 93005; 95816; 99291; 99292; C1751; G0378; G0482; J1200; J1953; J2060; J2270; J2405; J3475; J7030; J7042; J7050; J7060

== ENCOUNTER 2023-03-12 06:02 | Inpatient (IN) | payer MEDICAID ==
[~2023-03-12] VITALS: Ht 182.9 cm; Wt 100.7 kg
[2023-03-12 06:07] VITALS: BP_SYST 132; PULSE 101; RESP 16; TEMP 97.9; O2SAT 99
[2023-03-12] MEDS ORDERED: LORazepam 2 MG/ML VIAL ONE (06:17)
[2023-03-12] MEDS ORDERED: NACL 0.9% 1,000 ML IV ONE (06:30)
[2023-03-12] MEDS ORDERED: LORazepam 2 MG/ML VIAL IM ONE ×2 (06:30→08:00)
[2023-03-12] MEDS ORDERED: levETIRAcetam 1,000 MG IV BAG 100 ML IV ONE (06:30)
[2023-03-12] MEDS ORDERED: LORazepam 2 MG/ML VIAL IVP ONE (06:30)
[2023-03-12] MEDS ORDERED: PHENYTOIN SODIUM INJ 500 MG in NS 100 ML IV ONE ×2 (06:45→08:00)
[2023-03-12 07:05] LABS: BASOPHILS # (AUTO) 0.1 K/uL (0.0-0.2); BASOPHILS % (AUTO) 0.9 % (0.0-2.0); EOSINOPHILS # (AUTO) 0.2 K/uL (0.0-0.4); EOSINOPHILS % (AUTO) 2.5 % (0.0-4.0); HEMATOCRIT 42.7 % (36-54); HEMOGLOBIN 13.8 g/dL (14.0-18.0); LYMPHOCYTES % (AUTO) 57.1 % (20.5-51.5); MEAN CORPUSCULAR HEMOGLOBIN 29 pg (27-31); MEAN CORPUSCULAR HGB CONC 32 % (32-36); MEAN CORPUSCULAR VOLUME 91 fL (79.0-98.0); MONOCYTES # (AUTO) 0.3 K/uL (0.0-1.0); MONOCYTES % (AUTO) 4.6 % (1.7-9.3); NEUTROPHILS # (AUTO) 2.4 K/uL (1.8-7.7); NEUTROPHILS % (AUTO) 34.9 % (40.0-70.0); PLATELET COUNT (AUTO) 144 K/uL (130-430); RED CELL DISTRIBUTION WIDTH 16.9 % (9.0-15.0)
[2023-03-12 07:27] LABS: ALANINE AMINOTRANSFERASE 41 U/L (12-78); ALBUMIN 4.3 g/dL (3.4-4.8); ANION GAP 14 (5-15); ASPARTATE AMINOTRANSFERASE 45 U/L (10-37); CALCIUM 8.9 mg/dL (8.4-11.0); CARBON DIOXIDE 22 mmol/L (23-29); CHLORIDE 104 mmol/L (98-107); CREATININE 0.97 mg/dL (0.55-1.30); GFR AFRICAN AMERICAN 113 mL/min (>90); GFR NON AFRICAN-AMERICAN 94 mL/min (>90); GLUCOSE 81 mg/dL (74-106); POTASSIUM 3.8 mmol/L (3.5-5.1); SODIUM SERUM 140 mmol/L (136-145); TOTAL BILIRUBIN 0.1 mg/dL (0.0-1.0); TOTAL PROTEIN, SERUM 8.8 g/dL (6.4-8.3); UREA NITROGEN, BLOOD 11 mg/dL (8-21)
[2023-03-12 07:30] LABS: ALCOHOL, BLOOD 323 mg/dL (<10); CREATINE KINASE, TOTAL 712 U/L (39-308)
[2023-03-12 08:02] LABS: CKMB RELATIVE INDEX 0.3 (0.0-2.9); CREATINE KINASE MB 1.9 ng/mL (0-3.6)
[2023-03-12] MEDS ORDERED: PHENYTOIN SODIUM 250 MG/5 ML INJ. VIAL IV ONE ×2 (08:02→08:29)
[2023-03-12] MEDS ORDERED: FOLIC ACID 1 MG, THIAMINE HCL 100 MG, MAGNESIUM SULFATE 1 GM, MVI 10 ML in NACL 0.9% 1,... IV ONE (09:45)
[2023-03-12 10:13] LABS: BILIRUBIN,URINE NEGATIVE (NEGATIVE); BLOOD, URINE NEGATIVE (NEGATIVE); CLARITY/URINE CLEAR (CLEAR); COLOR,URINE YELLOW (YELLOW); GLUCOSE,URINE NEGATIVE (NEGATIVE); KETONES,URINE NEGATIVE (NEGATIVE); LEUKOCYTE ESTERASE ,URINE NEGATIVE (NEGATIVE); NITRITE, URINE NEGATIVE (NEGATIVE); PH,URINE 5.5 (5.0-8.0); PROTEIN URINE NEGATIVE (NEGATIVE); UROBILINOGEN,URINE 0.2 (0.2-1.0)
[2023-03-12 10:18] LABS: BARBITURATE, URINE POSITIVE (NEG <=200); BENZODIAZEPINE, URINE POSITIVE (NEG <=150); CANNABINOID, URINE NEGATIVE (NEG <=50); COCAINE, URINE NEGATIVE (NEG <=150); METHAMPHETAMINES SCREEN,URINE NEGATIVE (NEG <=500); OPIATE, URINE NEGATIVE (NEG <=100); PHENCYCLIDINE SCREEN,URINE NEGATIVE (NEG <=25); UR TRICYCLIC ANTIDEPRESSANTS NEGATIVE (NEG <=300); URINE AMPHETAMINE NEGATIVE (NEG <=500); URINE METHADONE NEGATIVE (NEG <=200); URINE OXYCODONE SCREEN NEGATIVE (NEG <=100); URINE PROPOXYPHENE SCREEN NEGATIVE (NEG <=300)
[2023-03-12 11:00] VITALS: BP_SYST 126; PULSE 85; RESP 18; TEMP 96.4; O2SAT 100
[2023-03-12] MEDS ORDERED: chlordiazePOXIDE HCL 25 MG CAPSULE PO ONE (11:00)
[2023-03-12] MEDS: LORazepam 2 MG/ML VIAL IVP PRN ×4 (11:10→21:55)
[2023-03-12] MEDS ORDERED: FOLIC ACID 1 MG, MVI 10 ML in NACL 0.9% 1,000 ML IV ONE (11:30)
[2023-03-12] MEDS ORDERED: THIAMINE HCL 100 MG, MAGNESIUM SULFATE 1 GM in NS 100 ML IV ONE (11:30)
[2023-03-12] MEDS ORDERED: cloNIDine HCL 0.2 MG TABLET PO PRN (14:15)
[2023-03-12] MEDS: LORazepam 2 MG/ML VIAL IM PRN (14:52)
[2023-03-12] MEDS: HYDROcodone/ACETAMIN 10-325 MG TAB PO PRN (14:59)
[2023-03-12 15:04] LABS: PROTHROMBIN TIME 10.8 SECS (9.5-12.5)
[2023-03-12] MEDS ORDERED: HYDROcodone/ACETAMIN 10-325 MG TAB PO ONE (15:15)
[2023-03-12] MEDS ORDERED: levETIRAcetam 500 MG TABLET PO ONE (15:45)
[2023-03-12 16:00] VITALS: BP_SYST 135; PULSE 90; RESP 18; TEMP 97.7; O2SAT 99
[2023-03-12] MEDS: chlordiazePOXIDE HCL 25 MG CAPSULE PO SCH ×2 (16:43→21:13)
[2023-03-12 19:00] VITALS: BP_SYST 127; PULSE 85; RESP 16; TEMP 98; O2SAT 98
[2023-03-12 20:00] VITALS: BP_SYST 127; PULSE 85; RESP 16; TEMP 98; O2SAT 98
[2023-03-12] MEDS ORDERED: chlordiazePOXIDE HCL 25 MG CAPSULE PO SCH (21:00)
[2023-03-12] MEDS ORDERED: NALOXONE HCL 0.4 MG/ML AMP (NARCAN) IVP PRN (21:00)
[2023-03-12] MEDS ORDERED: levETIRAcetam 500 MG TABLET PO SCH (21:00)
[2023-03-12] MEDS: levETIRAcetam 500 MG TABLET PO SCH (21:13)
[2023-03-12] MEDS: PHENYTOIN 100 MG CAPSULE PO SCH (21:13)
[2023-03-12] MEDS: METOPROLOL TARTRATE 25 MG TABLET PO SCH (21:14)
[2023-03-12] MEDS ORDERED: MORPHINE 4 MG INJ. 4 MG/ML VIAL ONE (21:28)
[2023-03-12] MEDS ORDERED: ONDANSETRON HCL 4 MG/2 ML VIAL ONE (21:29)
[2023-03-12] MEDS: MORPHINE 4 MG INJ. 4 MG/ML VIAL IVP PRN (21:32)
[2023-03-12] MEDS: ONDANSETRON HCL 4 MG/2 ML VIAL IVP PRN (21:32)
[2023-03-13 00:13] VITALS: BP_SYST 120; PULSE 71; RESP 14; TEMP 97; O2SAT 97
[2023-03-13] MEDS: MORPHINE 4 MG INJ. 4 MG/ML VIAL IVP PRN ×5 (02:51→20:03)
[2023-03-13] MEDS: LORazepam 2 MG/ML VIAL IVP PRN ×5 (03:32→21:39)
[2023-03-13] MEDS: ONDANSETRON HCL 4 MG/2 ML VIAL IVP PRN ×2 (03:33→20:46)
[2023-03-13 05:35] LABS: BASOPHILS % (AUTO) 0.7 % (0.0-2.0); EOSINOPHILS # (AUTO) 0.1 K/uL (0.0-0.4); EOSINOPHILS % (AUTO) 2.9 % (0.0-4.0); HEMOGLOBIN 10.9 g/dL (14.0-18.0); LYMPHOCYTES # (AUTO) 1.6 K/uL (1.0-5.5); LYMPHOCYTES % (AUTO) 37.6 % (20.5-51.5); MEAN CORPUSCULAR HEMOGLOBIN 30 pg (27-31); MEAN CORPUSCULAR HGB CONC 33 % (32-36); MEAN CORPUSCULAR VOLUME 90 fL (79.0-98.0); MONOCYTES # (AUTO) 0.3 K/uL (0.0-1.0); MONOCYTES % (AUTO) 7.6 % (1.7-9.3); NEUTROPHILS # (AUTO) 2.2 K/uL (1.8-7.7); NEUTROPHILS % (AUTO) 51.2 % (40.0-70.0); PLATELET COUNT (AUTO) 205 K/uL (130-430); RED BLOOD CELL COUNT(AUTO) 3.67 MIL/uL (4.2-6.2); RED CELL DISTRIBUTION WIDTH 15.8 % (9.0-15.0); WHITE BLOOD COUNT (AUTO) 4.3 K/uL (4.8-10.8)
[2023-03-13 05:46] LABS: ALBUMIN 3.1 g/dL (3.4-4.8); CALCIUM 7.7 mg/dL (8.4-11.0); CREATININE 0.87 mg/dL (0.55-1.30); POTASSIUM 3.7 mmol/L (3.5-5.1); TOTAL BILIRUBIN 0.2 mg/dL (0.0-1.0); TOTAL PROTEIN, SERUM 6.5 g/dL (6.4-8.3)
[2023-03-13 08:00] VITALS: O2SAT 99
[2023-03-13 08:06] VITALS: BP_SYST 137; PULSE 69; RESP 18; TEMP 97.5; O2SAT 99
[2023-03-13] MEDS: chlordiazePOXIDE HCL 25 MG CAPSULE PO SCH ×4 (09:10→20:01)
[2023-03-13] MEDS: METOPROLOL TARTRATE 25 MG TABLET PO SCH ×2 (09:11→20:43)
[2023-03-13] MEDS: FOLIC ACID 1 MG TABLET PO SCH (09:11)
[2023-03-13] MEDS: PHENYTOIN 100 MG CAPSULE PO SCH ×2 (09:11→20:02)
[2023-03-13] MEDS: LOSARTAN POTASSIUM 50 MG TABLET (COZAAR) PO SCH (09:12)
[2023-03-13] MEDS: levETIRAcetam 500 MG TABLET PO SCH ×2 (09:12→20:01)
[2023-03-13] MEDS: amLODIPine BESYLATE 10 MG TABLET PO SCH (09:13)
[2023-03-13] MEDS: ACETAMINOPHEN 325 MG TABLET PO PRN ×2 (09:13→09:26)
[2023-03-13] MEDS: THIAMINE HCL 100 MG TABLET PO SCH (09:15)
[2023-03-13 12:00] VITALS: BP_SYST 140; PULSE 64; RESP 18; TEMP 97.8
[2023-03-13 16:00] VITALS: BP_SYST 134; PULSE 64; RESP 20; TEMP 97.6
[2023-03-13 20:03] VITALS: BP_SYST 120; PULSE 76; RESP 18; TEMP 98.4; O2SAT 100
[2023-03-14] VITALS (7 sets, daily range): BP systolic 110–135; PULSE 56–80; RESP 16–20; TEMP 97.6–98.9; O2SAT 4–100
[2023-03-14] MEDS: MORPHINE 4 MG INJ. 4 MG/ML VIAL IVP PRN ×5 (00:19→20:58)
[2023-03-14] MEDS: ONDANSETRON HCL 4 MG/2 ML VIAL IVP PRN ×2 (00:39→21:13)
[2023-03-14] MEDS: DIPHENHYDRAMINE INJ 50 MG/ML VIAL IVP PRN ×5 (01:13→20:58)
[2023-03-14] MEDS: LOSARTAN POTASSIUM 50 MG TABLET (COZAAR) PO SCH (09:42)
[2023-03-14] MEDS: chlordiazePOXIDE HCL 25 MG CAPSULE PO SCH ×4 (09:42→21:03)
[2023-03-14] MEDS: FOLIC ACID 1 MG TABLET PO SCH (09:43)
[2023-03-14] MEDS: METOPROLOL TARTRATE 25 MG TABLET PO SCH ×2 (09:43→21:04)
[2023-03-14] MEDS: levETIRAcetam 500 MG TABLET PO SCH ×2 (09:43→21:03)
[2023-03-14] MEDS: amLODIPine BESYLATE 10 MG TABLET PO SCH (09:43)
[2023-03-14] MEDS: SERTRALINE HCL 50 MG TABLET PO SCH (09:44)
[2023-03-14] MEDS: THIAMINE HCL 100 MG TABLET PO SCH (09:44)
[2023-03-14] MEDS: PHENYTOIN 100 MG CAPSULE PO SCH ×2 (09:56→21:02)
[2023-03-14] MEDS: LORazepam 2 MG/ML VIAL IVP PRN (23:09)
[2023-03-15 00:17] VITALS: BP_SYST 132; PULSE 63; RESP 16; TEMP 98.4; O2SAT 100
[2023-03-15] MEDS: DIPHENHYDRAMINE INJ 50 MG/ML VIAL IVP PRN ×6 (01:00→23:07)
[2023-03-15] MEDS: MORPHINE 4 MG INJ. 4 MG/ML VIAL IVP PRN ×3 (01:00→10:18)
[2023-03-15] MEDS: LORazepam 2 MG/ML VIAL IVP PRN ×4 (01:11→16:24)
[2023-03-15] MEDS: HYDROcodone/ACETAMIN 10-325 MG TAB PO PRN ×2 (02:50→14:18)
[2023-03-15] MEDS ORDERED: DIATR MEGLU/DIATRIZ SOD 30 ML SOLUTION PO ONE (07:20)
[2023-03-15 07:35] VITALS: BP_SYST 132; PULSE 61; RESP 16; TEMP 96.3; O2SAT 99
[2023-03-15] MEDS: chlordiazePOXIDE HCL 25 MG CAPSULE PO SCH ×4 (09:00→21:54)
[2023-03-15] MEDS: FOLIC ACID 1 MG TABLET PO SCH (09:00)
[2023-03-15] MEDS: THIAMINE HCL 100 MG TABLET PO SCH (10:08)
[2023-03-15] MEDS: PHENYTOIN 100 MG CAPSULE PO SCH ×2 (10:09→21:54)
[2023-03-15] MEDS: levETIRAcetam 500 MG TABLET PO SCH ×2 (10:09→21:54)
[2023-03-15] MEDS: LOSARTAN POTASSIUM 50 MG TABLET (COZAAR) PO SCH (10:09)
[2023-03-15] MEDS: METOPROLOL TARTRATE 25 MG TABLET PO SCH ×2 (10:10→21:00)
[2023-03-15] MEDS: amLODIPine BESYLATE 10 MG TABLET PO SCH (10:10)
[2023-03-15] MEDS: SERTRALINE HCL 50 MG TABLET PO SCH (10:10)
[2023-03-15 11:30] VITALS: BP_SYST 146; PULSE 60; RESP 18; TEMP 98.6; O2SAT 100
[2023-03-15] MEDS: MORPHINE 2 MG/ML INJ. SYRINGE IVP PRN ×3 (12:47→23:07)
[2023-03-15 17:30] VITALS: BP_SYST 116; PULSE 60; RESP 17; TEMP 98.1; O2SAT 99
[2023-03-15 19:50] VITALS: BP_SYST 139; PULSE 59; RESP 20; TEMP 97.1; O2SAT 98
[2023-03-16 00:43] VITALS: BP_SYST 96; PULSE 67; RESP 16; TEMP 96.8; O2SAT 98
[2023-03-16 08:00] VITALS: BP_SYST 146; PULSE 62; RESP 16; TEMP 97.5; O2SAT 98
[2023-03-16] MEDS: levETIRAcetam 500 MG TABLET PO SCH ×2 (08:39→21:36)
[2023-03-16] MEDS: PHENYTOIN 100 MG CAPSULE PO SCH ×2 (08:39→21:35)
[2023-03-16] MEDS: LOSARTAN POTASSIUM 50 MG TABLET (COZAAR) PO SCH (08:40)
[2023-03-16] MEDS: THIAMINE HCL 100 MG TABLET PO SCH (08:41)
[2023-03-16] MEDS: METOPROLOL TARTRATE 25 MG TABLET PO SCH ×2 (08:41→21:00)
[2023-03-16] MEDS: SERTRALINE HCL 50 MG TABLET PO SCH (08:42)
[2023-03-16] MEDS: FOLIC ACID 1 MG TABLET PO SCH (08:43)
[2023-03-16] MEDS: chlordiazePOXIDE HCL 25 MG CAPSULE PO SCH ×4 (08:43→22:51)
[2023-03-16] MEDS: amLODIPine BESYLATE 10 MG TABLET PO SCH (08:44)
[2023-03-16] MEDS: DIPHENHYDRAMINE INJ 50 MG/ML VIAL IVP PRN ×3 (09:56→20:34)
[2023-03-16] MEDS: MORPHINE 2 MG/ML INJ. SYRINGE IVP PRN ×3 (09:57→19:33)
[2023-03-16] MEDS ORDERED: BISACODYL 10 MG/SUPPOSITORY RC PRN (14:30)
[2023-03-16] MEDS ORDERED: BISACODYL 5 MG TABLET.DR (DULCOLAX) PO PRN (14:30)
[2023-03-16 20:00] VITALS: O2SAT 96
[2023-03-16 20:30] VITALS: BP_SYST 137; PULSE 68; RESP 18; TEMP 97.5; O2SAT 96
[2023-03-16] MEDS: MORPHINE 4 MG INJ. 4 MG/ML VIAL IVP PRN (20:34)
[2023-03-16] MEDS: DOCUSATE SODIUM 250 MG CAPSULE PO SCH (21:34)
[2023-03-17] VITALS (7 sets, daily range): BP systolic 125–144; PULSE 60–93; RESP 16–19; TEMP 96.7–97.9; O2SAT 96–100
[2023-03-17] MEDS: MORPHINE 4 MG INJ. 4 MG/ML VIAL IVP PRN ×3 (01:02→09:14)
[2023-03-17] MEDS: DIPHENHYDRAMINE INJ 50 MG/ML VIAL IVP PRN ×5 (01:03→23:39)
[2023-03-17] MEDS: LORazepam 2 MG/ML VIAL IVP PRN (03:04)
[2023-03-17 08:05] LABS: BASOPHILS % (AUTO) 0.7 % (0.0-2.0); EOSINOPHILS # (AUTO) 0.4 K/uL (0.0-0.4); HEMOGLOBIN 12.1 g/dL (14.0-18.0); LYMPHOCYTES # (AUTO) 1.8 K/uL (1.0-5.5); LYMPHOCYTES % (AUTO) 36.1 % (20.5-51.5); MEAN CORPUSCULAR HEMOGLOBIN 30 pg (27-31); MEAN CORPUSCULAR HGB CONC 34 % (32-36); MEAN CORPUSCULAR VOLUME 90 fL (79.0-98.0); MONOCYTES # (AUTO) 0.4 K/uL (0.0-1.0); MONOCYTES % (AUTO) 7.5 % (1.7-9.3); NEUTROPHILS # (AUTO) 2.5 K/uL (1.8-7.7); NEUTROPHILS % (AUTO) 48.7 % (40.0-70.0); PLATELET COUNT (AUTO) 184 K/uL (130-430); RED BLOOD CELL COUNT(AUTO) 4.01 MIL/uL (4.2-6.2); WHITE BLOOD COUNT (AUTO) 5.1 K/uL (4.8-10.8)
[2023-03-17 08:06] LABS: ALBUMIN 3.3 g/dL (3.4-4.8); CALCIUM 9.1 mg/dL (8.4-11.0); CREATININE 0.86 mg/dL (0.55-1.30); POTASSIUM 3.9 mmol/L (3.5-5.1); TOTAL BILIRUBIN 0.1 mg/dL (0.0-1.0); TOTAL PROTEIN, SERUM 7.2 g/dL (6.4-8.3)
[2023-03-17] MEDS: METOPROLOL TARTRATE 25 MG TABLET PO SCH ×2 (09:00→20:28)
[2023-03-17] MEDS: DOCUSATE SODIUM 250 MG CAPSULE PO SCH ×2 (09:00→20:28)
[2023-03-17] MEDS: THIAMINE HCL 100 MG TABLET PO SCH (09:15)
[2023-03-17] MEDS: FOLIC ACID 1 MG TABLET PO SCH (09:15)
[2023-03-17] MEDS: SERTRALINE HCL 50 MG TABLET PO SCH (09:16)
[2023-03-17] MEDS: amLODIPine BESYLATE 10 MG TABLET PO SCH (09:16)
[2023-03-17] MEDS: chlordiazePOXIDE HCL 25 MG CAPSULE PO SCH ×4 (09:17→20:28)
[2023-03-17] MEDS: PHENYTOIN 100 MG CAPSULE PO SCH ×2 (09:17→20:27)
[2023-03-17] MEDS: levETIRAcetam 500 MG TABLET PO SCH ×2 (09:18→20:27)
[2023-03-17] MEDS: LOSARTAN POTASSIUM 50 MG TABLET (COZAAR) PO SCH (09:19)
[2023-03-17] MEDS: ONDANSETRON HCL 4 MG/2 ML VIAL IVP PRN (11:47)
[2023-03-17] MEDS: LORazepam 2 MG/ML VIAL IM PRN (11:48)
[2023-03-17] MEDS: MORPHINE 2 MG/ML INJ. SYRINGE IVP PRN (13:47)
[2023-03-17] MEDS ORDERED: Thiamine Hcl PO (16:18)
[2023-03-17] MEDS ORDERED: FOLI-43 PO (16:18)
[2023-03-17] MEDS ORDERED: SERT-436 PO (16:18)
[2023-03-17] MEDS ORDERED: PHEN100C4 PO (16:18)
[2023-03-17] MEDS ORDERED: VIS50 PO (16:18)
[2023-03-17] MEDS ORDERED: NOR10 PO (16:18)
[2023-03-17] MEDS ORDERED: LIB25 PO (16:18)
[2023-03-17] MEDS ORDERED: LEVE750T4 PO (16:19)
[2023-03-17] MEDS ORDERED: HYDROcodone/ACETAMIN 5-325 MG TAB (NORCO/ VICODIN) PO PRN (16:30)
[2023-03-17] MEDS ORDERED: NALOXONE HCL 0.4 MG/ML AMP (NARCAN) IVP PRN (16:30)
[2023-03-17] MEDS: HYDROcodone/ACETAMIN 10-325 MG TAB PO PRN (20:21)
[2023-03-18] MEDS: LORazepam 2 MG/ML VIAL IM PRN (05:50)
[2023-03-18] MEDS: HYDROcodone/ACETAMIN 10-325 MG TAB PO PRN (05:51)
[2023-03-18] MEDS: DIPHENHYDRAMINE INJ 50 MG/ML VIAL IVP PRN ×2 (06:05→10:14)
[2023-03-18] MEDS: ACETAMINOPHEN 325 MG TABLET PO PRN (06:06)
[2023-03-18] MEDS: METOPROLOL TARTRATE 25 MG TABLET PO SCH (09:00)
[2023-03-18] MEDS: LOSARTAN POTASSIUM 50 MG TABLET (COZAAR) PO SCH (10:02)
[2023-03-18] MEDS: chlordiazePOXIDE HCL 25 MG CAPSULE PO SCH ×2 (10:02→14:09)
[2023-03-18] MEDS: SERTRALINE HCL 50 MG TABLET PO SCH (10:03)
[2023-03-18] MEDS: DOCUSATE SODIUM 250 MG CAPSULE PO SCH (10:03)
[2023-03-18] MEDS: PHENYTOIN 100 MG CAPSULE PO SCH (10:03)
[2023-03-18] MEDS: FOLIC ACID 1 MG TABLET PO SCH (10:04)
[2023-03-18] MEDS: THIAMINE HCL 100 MG TABLET PO SCH (10:05)
[2023-03-18] MEDS: levETIRAcetam 500 MG TABLET PO SCH (10:05)
[2023-03-18] MEDS: amLODIPine BESYLATE 10 MG TABLET PO SCH (10:06)
[2023-03-18 10:54] VITALS: BP_SYST 131; PULSE 53; RESP 20; TEMP 97.3; O2SAT 98
[2023-03-18 15:19] VITALS: BP_SYST 131; PULSE 55; RESP 18; TEMP 97.2; O2SAT 98
== END 2023-03-18 16:20 | disposition home or self-care (01) | DRG 53 ==
LOC: SED 06:02 → STU 09:33 → SMU 03-15 09:48
PROVIDERS: ADMIT Internal Medicine; ATTEND Internal Medicine
PROC: 02HV33Z Insertion of Infusion Device into Superior Vena Cava, Percutaneous Approach (ICD-10-PCS; principal; 2023-03-12)
PROC: B548ZZA Ultrasonography of Superior Vena Cava, Guidance (ICD-10-PCS; 2023-03-12)
DX: G40.909 Epilepsy, unspecified, not intractable, without status epilepticus (principal); K85.20 Alcohol induced acute pancreatitis without necrosis or infection; I42.0 Dilated cardiomyopathy; R65.10 Systemic inflammatory response syndrome (SIRS) of non-infectious origin without acute organ dysfunction; I11.0 Hypertensive heart disease with heart failure; I50.42 Chronic combined systolic (congestive) and diastolic (congestive) heart failure; I42.6 Alcoholic cardiomyopathy; F10.129 Alcohol abuse with intoxication, unspecified; F19.10 Other psychoactive substance abuse, uncomplicated; Y90.9 Presence of alcohol in blood, level not specified; K57.90 Diverticulosis of intestine, part unspecified, without perforation or abscess without bleeding; Z91.199 Patient's noncompliance with other medical treatment and regimen due to unspecified reason; Z91.119 Patient's noncompliance with dietary regimen due to unspecified reason; Z85.07 Personal history of malignant neoplasm of pancreas; Z79.899 Other long term (current) drug therapy; Z88.1 Allergy status to other antibiotic agents; Z88.0 Allergy status to penicillin; Z91.018 Allergy to other foods
CPT/HCPCS: 36415; 71045; 76376; 80053; 80307; 81003; 82550; 82553; 83690; 84484; 85025; 85610-TC; 85730-TC; 86301; 93005; 93306; 96365; 96368; 96372; 97116-GP; 97163-GP; 97530-GP; 99291; C1769; G0378; G0482; J1165; J1200; J1953; J2060; J2270; J2405; J3411; J3475; J3490; J7030; Q9964; Q9967

== ENCOUNTER 2023-03-30 03:56 | Emergency (ER) | payer MEDICAID ==
[~2023-03-30] VITALS: Ht 185.4 cm; Wt 86.2 kg
[~2023-03-30 03:56] MED LIST changes: +FOLI-43 PO; -LEVE1000 PO; -LEVE500T21 PO; -LORA-259 PO; +PHEN100C4 PO; +SERT-436 PO; -SYMBICORT; +Thiamine Hcl PO; +VIS50 PO
[2023-03-30 04:00] VITALS: BP_SYST 154; PULSE 112; RESP 18; TEMP 97.9; O2SAT 99
[2023-03-30] MEDS ORDERED: ONDANSETRON 4 MG ODT TAB PO ONE (04:30)
[2023-03-30] MEDS ORDERED: LORazepam 2 MG/ML VIAL IM ONE (05:00)
[2023-03-30] MEDS ORDERED: levETIRAcetam 1,000 MG IV BAG 100 ML IV ONE (05:30)
[2023-03-30 05:45] LABS: BASOPHILS % (AUTO) 0.6 % (0.0-2.0); EOSINOPHILS # (AUTO) 0.4 K/uL (0.0-0.4); EOSINOPHILS % (AUTO) 5.1 % (0.0-4.0); HEMOGLOBIN 12.2 g/dL (14.0-18.0); LYMPHOCYTES # (AUTO) 2.3 K/uL (1.0-5.5); LYMPHOCYTES % (AUTO) 31.3 % (20.5-51.5); MEAN CORPUSCULAR HEMOGLOBIN 30 pg (27-31); MEAN CORPUSCULAR HGB CONC 33 % (32-36); MEAN CORPUSCULAR VOLUME 90 fL (79.0-98.0); MONOCYTES # (AUTO) 0.6 K/uL (0.0-1.0); MONOCYTES % (AUTO) 7.8 % (1.7-9.3); NEUTROPHILS % (AUTO) 55.2 % (40.0-70.0); PLATELET COUNT (AUTO) 214 K/uL (130-430); RED BLOOD CELL COUNT(AUTO) 4.13 MIL/uL (4.2-6.2); RED CELL DISTRIBUTION WIDTH 16.3 % (9.0-15.0); WHITE BLOOD COUNT (AUTO) 7.2 K/uL (4.8-10.8)
[2023-03-30 06:12] LABS: ALANINE AMINOTRANSFERASE 61 U/L (12-78); ALBUMIN 3.5 g/dL (3.4-4.8); ALCOHOL, BLOOD 249 mg/dL (<10); ANION GAP 14 (5-15); ASPARTATE AMINOTRANSFERASE 50 U/L (10-37); CALCIUM 8.7 mg/dL (8.4-11.0); CARBON DIOXIDE 24 mmol/L (23-29); CHLORIDE 105 mmol/L (98-107); CREATININE 0.86 mg/dL (0.55-1.30); GFR AFRICAN AMERICAN 130 mL/min (>90); GLUCOSE 90 mg/dL (74-106); PHENYTOIN (DILANTIN) < 0.5 ug/mL (10.0-20.0); SODIUM SERUM 143 mmol/L (136-145); TOTAL BILIRUBIN 0.2 mg/dL (0.0-1.0); TOTAL PROTEIN, SERUM 7.7 g/dL (6.4-8.3); UREA NITROGEN, BLOOD 5 mg/dL (8-21)
[2023-03-30 06:16] LABS: GFR NON AFRICAN-AMERICAN 108 mL/min (>90)
[2023-03-30 06:59] LABS: CLARITY/URINE CLEAR (CLEAR); COLOR,URINE YELLOW (YELLOW)
[2023-03-30 07:00] LABS: BILIRUBIN,URINE NEGATIVE (NEGATIVE); BLOOD, URINE NEGATIVE (NEGATIVE); GLUCOSE,URINE NEGATIVE (NEGATIVE); KETONES,URINE NEGATIVE (NEGATIVE); LEUKOCYTE ESTERASE ,URINE NEGATIVE (NEGATIVE); NITRITE, URINE NEGATIVE (NEGATIVE); PROTEIN URINE NEGATIVE (NEGATIVE); UROBILINOGEN,URINE 0.2 (0.2-1.0)
[2023-03-30] MEDS ORDERED: IBUPROFEN 800 MG TABLET PO ONE (07:00)
[2023-03-30] MEDS ORDERED: PHENYTOIN SODIUM INJ 1,000 MG in NS 100 ML IV ONE (07:00)
[2023-03-30] MEDS ORDERED: HYDROcodone/ACETAMIN 10-325 MG TAB PO ONE (07:00)
[2023-03-30] MEDS ORDERED: PHENYTOIN SODIUM 250 MG/5 ML INJ. VIAL IV ONE (07:20)
[2023-03-30] MEDS ORDERED: LORA-259 PO (08:48)
[2023-03-30] MEDS ORDERED: PHENYTOIN 100 MG CAPSULE PO ONE (11:15)
[2023-03-30 11:36] VITALS: BP_SYST 138; PULSE 88; RESP 17; TEMP 97.8; O2SAT 100
== END 2023-03-30 11:25 | disposition home or self-care (01) ==
LOC: SED 03:56
DX: S70.01XA Contusion of right hip, initial encounter (principal); G40.909 Epilepsy, unspecified, not intractable, without status epilepticus; F10.129 Alcohol abuse with intoxication, unspecified; J45.909 Unspecified asthma, uncomplicated; E11.9 Type 2 diabetes mellitus without complications; I10 Essential (primary) hypertension; K21.9 Gastro-esophageal reflux disease without esophagitis; Z88.0 Allergy status to penicillin; Z88.1 Allergy status to other antibiotic agents; Z91.018 Allergy to other foods; Z79.899 Other long term (current) drug therapy; W01.0XXA Fall on same level from slipping, tripping and stumbling without subsequent striking against object, initial encounter; Y93.89 Activity, other specified; Y92.89 Other specified places as the place of occurrence of the external cause; Y99.8 Other external cause status
CPT/HCPCS: 99285; 96365; 71045; 96367; 80053; 80185; 85025; 36415; 93005; 72170; 96372; 81003; G0482; Q0162; J1953; J2060; J1165; J7030

== ENCOUNTER 2023-05-19 20:57 | Inpatient (IN) | payer MEDICAID ==
[~2023-05-19] VITALS: Ht 182.9 cm; Wt 93.0 kg
[~2023-05-19 20:57] MED LIST changes: +LORA-259 PO; -LOSA100T23 PO; +LOSA100T24 PO
[2023-05-19 21:11] VITALS: BP_SYST 178; PULSE 70; RESP 20; TEMP 98.9; O2SAT 98
[2023-05-19] MEDS ORDERED: ONDANSETRON HCL 4 MG/2 ML VIAL IVP ONE ×2 (21:30→22:00)
[2023-05-19] MEDS ORDERED: MORPHINE 4 MG INJ. 4 MG/ML VIAL IVP ONE (22:00)
[2023-05-19] MEDS ORDERED: NACL 0.9% 1,000 ML IV ONE (22:15)
[2023-05-19 22:56] LABS: BASOPHILS # (AUTO) 0.1 K/uL (0.0-0.2); BASOPHILS % (AUTO) 0.5 % (0.0-2.0); EOSINOPHILS % (AUTO) 0.1 % (0.0-4.0); HEMATOCRIT 35.8 % (36-54); HEMOGLOBIN 11.9 g/dL (14.0-18.0); LYMPHOCYTES # (AUTO) 1.3 K/uL (1.0-5.5); LYMPHOCYTES % (AUTO) 9.6 % (20.5-51.5); MEAN CORPUSCULAR HEMOGLOBIN 28 pg (27-31); MEAN CORPUSCULAR HGB CONC 33 % (32-36); MEAN CORPUSCULAR VOLUME 85 fL (79.0-98.0); MONOCYTES # (AUTO) 0.5 K/uL (0.0-1.0); MONOCYTES % (AUTO) 3.7 % (1.7-9.3); NEUTROPHILS # (AUTO) 11.6 K/uL (1.8-7.7); NEUTROPHILS % (AUTO) 86.1 % (40.0-70.0); RED BLOOD CELL COUNT(AUTO) 4.22 MIL/uL (4.2-6.2); RED CELL DISTRIBUTION WIDTH 17.5 % (9.0-15.0); WHITE BLOOD COUNT (AUTO) 13.5 K/uL (4.8-10.8)
[2023-05-19] MEDS ORDERED: LORazepam 2 MG/ML VIAL IVP ONE (23:00)
[2023-05-19 23:02] LABS: PLATELET COUNT (AUTO) 210 K/uL (130-430)
[2023-05-19 23:23] LABS: ALBUMIN 2.8 g/dL (3.4-4.8); CREATININE 0.66 mg/dL (0.55-1.30); TOTAL BILIRUBIN 1.3 mg/dL (0.0-1.0); TOTAL PROTEIN, SERUM 6.9 g/dL (6.4-8.3)
[2023-05-19 23:47] LABS: PHENYTOIN (DILANTIN) 0.8 ug/mL (10.0-20.0)
[2023-05-20] VITALS (7 sets, daily range): BP systolic 158–176; PULSE 100–116; RESP 16–20; TEMP 97.5–98.6; O2SAT 96–97
[2023-05-20] MEDS ORDERED: POTASSIUM CHLORIDE 20 MEQ/PKT PACKET PO ONE
[2023-05-20] MEDS ORDERED: MORPHINE 4 MG INJ. 4 MG/ML VIAL IVP ONE
[2023-05-20 00:16] LABS: CALCIUM 8.9 mg/dL (8.4-11.0)
[2023-05-20] MEDS ORDERED: LORazepam 2 MG/ML VIAL ONE (00:44)
[2023-05-20] MEDS ORDERED: LORazepam 2 MG/ML VIAL IM ONE (00:45)
[2023-05-20] MEDS ORDERED: MAGNESIUM SULFATE 50 ML IV ONE (00:45)
[2023-05-20] MEDS ORDERED: ONDANSETRON HCL 4 MG/2 ML VIAL ONE (00:48)
[2023-05-20] MEDS ORDERED: ACETAMINOPHEN 325 MG TABLET PO ONE (01:00)
[2023-05-20 01:21] LABS: BILIRUBIN,URINE NEGATIVE (NEGATIVE); BLOOD, URINE NEGATIVE (NEGATIVE); GLUCOSE,URINE NEGATIVE (NEGATIVE); KETONES,URINE NEGATIVE (NEGATIVE); LEUKOCYTE ESTERASE ,URINE NEGATIVE (NEGATIVE); NITRITE, URINE NEGATIVE (NEGATIVE); PROTEIN URINE 1+ (NEGATIVE); UROBILINOGEN,URINE 0.2 (0.2-1.0)
[2023-05-20 01:41] LABS: CLARITY/URINE SL CLOUDY (CLEAR); COLOR,URINE YELLOW (YELLOW)
[2023-05-20 01:46] LABS: BACTERIA,URINE None Seen /HPF (None Seen); RBC,URINE 0-3 /HPF (0-3); WBC,URINE 0-3 /HPF (0-3)
[2023-05-20 03:02] LABS: INFLUENZA TYPE A Negative (NEGATIVE); INFLUENZA TYPE B NEGATIVE (NEGATIVE)
[2023-05-20 03:11] LABS: NOVEL CORONAVIRUS(COVID19) NAA Negative (Negative)
[2023-05-20] MEDS ORDERED: HYDROmorphone 1 MG/ML INJ. CARTRIDGE IVP ONE ×2 (03:15→05:45)
[2023-05-20] MEDS ORDERED: METOPROLOL TARTRATE 5 MG/5 ML VIAL IVP ONE (03:45)
[2023-05-20] MEDS ORDERED: ONDANSETRON HCL 4 MG/2 ML VIAL IVP ONE (05:30)
[2023-05-20] MEDS ORDERED: FOLIC ACID 1 MG, THIAMINE HCL 100 MG, MAGNESIUM SULFATE 1 GM, MVI 10 ML in NACL 0.9% 1,... IV ONE (05:30)
[2023-05-20] MEDS ORDERED: SACU1TAB PO (05:37)
[2023-05-20] MEDS ORDERED: LEVE500T9 PO (05:37)
[2023-05-20] MEDS ORDERED: FOLIC ACID 1 MG, MVI 10 ML in NACL 0.9% 1,000 ML IV ONE (06:30)
[2023-05-20] MEDS ORDERED: THIAMINE HCL 100 MG, MAGNESIUM SULFATE 1 GM in NS 100 ML IV ONE (06:30)
[2023-05-20] MEDS: PANTOPRAZOLE SODIUM 40 MG/VIAL (PROTONIX) IVP SCH (08:48)
[2023-05-20] MEDS: chlordiazePOXIDE HCL 25 MG CAPSULE PO SCH ×3 (08:49→20:33)
[2023-05-20] MEDS ORDERED: NALOXONE HCL 0.4 MG/ML AMP (NARCAN) IVP PRN ×2 (10:45→11:15)
[2023-05-20] MEDS: HYDROmorphone 1 MG/ML INJ. CARTRIDGE IVP PRN ×4 (11:14→23:38)
[2023-05-20] MEDS ORDERED: HYDROmorphone 1 MG/ML INJ. CARTRIDGE IVP PRN (11:15)
[2023-05-20] MEDS ORDERED: levETIRAcetam 500 MG TABLET PO ONE (11:30)
[2023-05-20] MEDS: NACL 0.9% 1,000 ML IV SCH ×2 (12:00→15:20)
[2023-05-20 12:36] LABS: PROTHROMBIN TIME 10.7 SECS (9.5-12.5)
[2023-05-20] MEDS ORDERED: MAGNESIUM SULFATE 4 GM in D5W 250 ML IV ONE (13:00)
[2023-05-20 13:01] LABS: ALBUMIN 2.6 g/dL (3.4-4.8); ANION GAP 28 (5-15); CHLORIDE 98 mmol/L (98-107); CREATININE 0.56 mg/dL (0.55-1.30); GFR AFRICAN AMERICAN 214 mL/min (>90); GLUCOSE 154 mg/dL (74-106); POTASSIUM 3.3 mmol/L (3.5-5.1); SODIUM SERUM 131 mmol/L (136-145); TOTAL BILIRUBIN 1.6 mg/dL (0.0-1.0); TOTAL PROTEIN, SERUM 6.6 g/dL (6.4-8.3); UREA NITROGEN, BLOOD 6 mg/dL (8-21)
[2023-05-20 13:05] LABS: GFR NON AFRICAN-AMERICAN 176 mL/min (>90)
[2023-05-20 13:10] LABS: CALCIUM 6.6 mg/dL (8.4-11.0)
[2023-05-20] MEDS: levETIRAcetam 500 MG TABLET PO SCH ×2 (15:14→20:34)
[2023-05-20] MEDS: METOPROLOL TARTRATE 25 MG TABLET PO SCH (20:33)
[2023-05-20] MEDS: PHENYTOIN 100 MG CAPSULE PO SCH (20:34)
[2023-05-20] MEDS: ONDANSETRON HCL 4 MG/2 ML VIAL IVP PRN (20:45)
[2023-05-20] MEDS ORDERED: LORazepam 1 MG TABLET PO SCH (21:00)
[2023-05-20] MEDS ORDERED: METOPROLOL TARTRATE 25 MG TABLET PO SCH (21:00)
[2023-05-21 00:28] VITALS: BP_SYST 150; PULSE 98; RESP 18; TEMP 97.2; O2SAT 97
[2023-05-21] MEDS: ONDANSETRON HCL 4 MG/2 ML VIAL IVP PRN ×2 (03:33→23:52)
[2023-05-21] MEDS: HYDROmorphone 1 MG/ML INJ. CARTRIDGE IVP PRN ×6 (03:33→23:52)
[2023-05-21 06:55] LABS: BASOPHILS # (AUTO) 0.1 K/uL (0.0-0.2); BASOPHILS % (AUTO) 0.5 % (0.0-2.0); EOSINOPHILS # (AUTO) 0.1 K/uL (0.0-0.4); EOSINOPHILS % (AUTO) 1.1 % (0.0-4.0); HEMATOCRIT 33.8 % (36-54); HEMOGLOBIN 11.5 g/dL (14.0-18.0); LYMPHOCYTES # (AUTO) 1.4 K/uL (1.0-5.5); LYMPHOCYTES % (AUTO) 13.5 % (20.5-51.5); MEAN CORPUSCULAR HEMOGLOBIN 29 pg (27-31); MEAN CORPUSCULAR HGB CONC 34 % (32-36); MEAN CORPUSCULAR VOLUME 85 fL (79.0-98.0); MONOCYTES # (AUTO) 0.4 K/uL (0.0-1.0); MONOCYTES % (AUTO) 3.8 % (1.7-9.3); NEUTROPHILS # (AUTO) 8.1 K/uL (1.8-7.7); NEUTROPHILS % (AUTO) 81.1 % (40.0-70.0); PLATELET COUNT (AUTO) 86 K/uL (130-430); RED BLOOD CELL COUNT(AUTO) 3.96 MIL/uL (4.2-6.2)
[2023-05-21 06:56] LABS: CALCIUM 7.3 mg/dL (8.4-11.0); CREATININE 0.79 mg/dL (0.55-1.30)
[2023-05-21 06:59] LABS: POTASSIUM 2.8 mmol/L (3.5-5.1)
[2023-05-21] MEDS ORDERED: POTASSIUM CHLORIDE 20 MEQ/PKT PACKET PO ONE (07:15)
[2023-05-21 08:00] VITALS: O2SAT 98
[2023-05-21] MEDS ORDERED: KCL 20 mEq in 0.45% NS 1000 mL 1,000 ML IV SCH (08:00)
[2023-05-21] MEDS ORDERED: KCL 40 mEq in 100 mL (PREMIX) 100 ML IV ONE (08:00)
[2023-05-21 08:02] VITALS: BP_SYST 149; PULSE 94; RESP 17; TEMP 97.8; O2SAT 98
[2023-05-21] MEDS: PANTOPRAZOLE SODIUM 40 MG/VIAL (PROTONIX) IVP SCH (08:09)
[2023-05-21] MEDS: chlordiazePOXIDE HCL 25 MG CAPSULE PO SCH ×3 (08:09→20:13)
[2023-05-21] MEDS: levETIRAcetam 500 MG TABLET PO SCH ×3 (08:09→20:13)
[2023-05-21] MEDS: SACUBITRIL/VALSARTAN 24 MG-26 MG 1 TABLET PO SCH (08:10)
[2023-05-21] MEDS: PHENYTOIN 100 MG CAPSULE PO SCH ×2 (08:10→20:13)
[2023-05-21] MEDS: METOPROLOL TARTRATE 25 MG TABLET PO SCH ×2 (08:10→20:13)
[2023-05-21] MEDS ORDERED: COMMUNICATION ORDER XX ONE (09:00)
[2023-05-21] MEDS: POTASSIUM CHLORIDE 40 MEQ in D5W 250 ML IV SCH ×2 (09:04→12:00)
[2023-05-21] MEDS ORDERED: MAGNESIUM SULFATE 50 ML IV ONE (10:00)
[2023-05-21] MEDS ORDERED: LOPERAMIDE HCL 2 MG CAPSULE PO ONE (11:15)
[2023-05-21] MEDS: LR 1,000 ML IV SCH ×3 (11:45→19:52)
[2023-05-21] MEDS ORDERED: metroNIDAZOLE 500 mg/NS 100 ML IV SCH (14:00)
[2023-05-21 16:19] VITALS: BP_SYST 143; PULSE 90; RESP 17; TEMP 97.1; O2SAT 97
[2023-05-21] MEDS ORDERED: LACTOBACILLUS RHAMNOSUS GG 1 CAP CAPSULE PO ONE (17:00)
[2023-05-21] MEDS ORDERED: METHYLPREDNISOLONE SOD SUCC 40 MG/ML VIAL IVP ONE (17:00)
[2023-05-21] MEDS ORDERED: DIPHENHYDRAMINE INJ 50 MG/ML VIAL IVP ONE ×2 (18:15→22:45)
[2023-05-21] MEDS ORDERED: DIPHENHYDRAMINE INJ 50 MG/ML VIAL ONE (18:27)
[2023-05-21 20:00] VITALS: BP_SYST 140; PULSE 78; RESP 18; TEMP 97.8; O2SAT 99
[2023-05-21] MEDS: LORazepam 1 MG TABLET PO PRN (20:01)
[2023-05-21] MEDS: LACTOBACILLUS RHAMNOSUS GG 1 CAP CAPSULE PO SCH (20:13)
[2023-05-21] MEDS: NS IV SCH (20:15)
[2023-05-21] MEDS: ERAVACYCLINE DI HYDROCHLORIDE IV SCH (20:15)
[2023-05-21] MEDS ORDERED: CALAMINE 120 ML TOPICAL LOTION TP PRN (21:00)
[2023-05-22] VITALS (7 sets, daily range): BP systolic 148–165; PULSE 68–85; RESP 17–19; TEMP 96.8–98.8; O2SAT 95–98
[2023-05-22] MEDS ORDERED: NACL 0.9% 1,000 ML IV SCH (00:15)
[2023-05-22] MEDS: ONDANSETRON HCL 4 MG/2 ML VIAL IVP PRN ×4 (04:01→21:41)
[2023-05-22] MEDS: HYDROmorphone 1 MG/ML INJ. CARTRIDGE IVP PRN ×5 (04:02→21:48)
[2023-05-22] MEDS: LR 1,000 ML IV SCH ×4 (04:03→20:41)
[2023-05-22] MEDS: LORazepam 1 MG TABLET PO PRN ×2 (04:47→23:07)
[2023-05-22 06:08] LABS: ALBUMIN 2.3 g/dL (3.4-4.8); CALCIUM 8.1 mg/dL (8.4-11.0); CREATININE 0.55 mg/dL (0.55-1.30); POTASSIUM 3.4 mmol/L (3.5-5.1); TOTAL BILIRUBIN 0.8 mg/dL (0.0-1.0); TOTAL PROTEIN, SERUM 6.4 g/dL (6.4-8.3)
[2023-05-22] MEDS: PANTOPRAZOLE SODIUM 40 MG/VIAL (PROTONIX) IVP SCH (09:14)
[2023-05-22] MEDS: ERAVACYCLINE DI HYDROCHLORIDE IV SCH ×2 (09:20→20:41)
[2023-05-22] MEDS: NS IV SCH ×2 (09:20→20:41)
[2023-05-22] MEDS: METOPROLOL TARTRATE 25 MG TABLET PO SCH ×2 (09:22→20:41)
[2023-05-22] MEDS: levETIRAcetam 500 MG TABLET PO SCH ×3 (09:22→20:40)
[2023-05-22] MEDS: PHENYTOIN 100 MG CAPSULE PO SCH ×2 (09:22→20:40)
[2023-05-22] MEDS: chlordiazePOXIDE HCL 25 MG CAPSULE PO SCH ×3 (09:22→20:40)
[2023-05-22] MEDS: SACUBITRIL/VALSARTAN 24 MG-26 MG 1 TABLET PO SCH (09:29)
[2023-05-22] MEDS: LACTOBACILLUS RHAMNOSUS GG 1 CAP CAPSULE PO SCH ×2 (09:29→20:40)
[2023-05-22] MEDS ORDERED: DIPHENHYDRAMINE INJ 50 MG/ML VIAL ONE (10:08)
[2023-05-22] MEDS ORDERED: LOPERAMIDE HCL 2 MG CAPSULE PO ONE (15:30)
[2023-05-22] MEDS: DIPHENHYDRAMINE INJ 50 MG/ML VIAL IVP PRN ×2 (16:06→20:40)
[2023-05-23] VITALS (7 sets, daily range): BP systolic 145–158; PULSE 65–81; RESP 17–20; TEMP 96.9–98.6; O2SAT 94–99
[2023-05-23] MEDS: ONDANSETRON HCL 4 MG/2 ML VIAL IVP PRN ×4 (01:48→21:50)
[2023-05-23] MEDS: HYDROmorphone 1 MG/ML INJ. CARTRIDGE IVP PRN ×6 (01:49→21:51)
[2023-05-23] MEDS: LR 1,000 ML IV SCH ×3 (05:43→15:53)
[2023-05-23 07:26] LABS: BASOPHILS % (AUTO) 0.6 % (0.0-2.0); EOSINOPHILS # (AUTO) 0.2 K/uL (0.0-0.4); EOSINOPHILS % (AUTO) 4.8 % (0.0-4.0); HEMATOCRIT 27.4 % (36-54); HEMOGLOBIN 8.9 g/dL (14.0-18.0); LYMPHOCYTES # (AUTO) 1.1 K/uL (1.0-5.5); LYMPHOCYTES % (AUTO) 30.6 % (20.5-51.5); MEAN CORPUSCULAR HEMOGLOBIN 28 pg (27-31); MEAN CORPUSCULAR HGB CONC 32 % (32-36); MEAN CORPUSCULAR VOLUME 87 fL (79.0-98.0); MONOCYTES # (AUTO) 0.3 K/uL (0.0-1.0); MONOCYTES % (AUTO) 7.9 % (1.7-9.3); NEUTROPHILS % (AUTO) 56.1 % (40.0-70.0); PLATELET COUNT (AUTO) 87 K/uL (130-430); RED BLOOD CELL COUNT(AUTO) 3.13 MIL/uL (4.2-6.2); RED CELL DISTRIBUTION WIDTH 17.1 % (9.0-15.0); WHITE BLOOD COUNT (AUTO) 3.6 K/uL (4.8-10.8)
[2023-05-23 07:42] LABS: ALBUMIN 2.1 g/dL (3.4-4.8); CALCIUM 8.4 mg/dL (8.4-11.0); CREATININE 0.57 mg/dL (0.55-1.30); POTASSIUM 3.5 mmol/L (3.5-5.1); TOTAL BILIRUBIN 0.4 mg/dL (0.0-1.0)
[2023-05-23] MEDS: NS IV SCH ×2 (09:23→20:42)
[2023-05-23] MEDS: PANTOPRAZOLE SODIUM 40 MG/VIAL (PROTONIX) IVP SCH (09:23)
[2023-05-23] MEDS: ERAVACYCLINE DI HYDROCHLORIDE IV SCH ×2 (09:23→20:42)
[2023-05-23] MEDS: chlordiazePOXIDE HCL 25 MG CAPSULE PO SCH ×3 (09:24→20:41)
[2023-05-23] MEDS: LACTOBACILLUS RHAMNOSUS GG 1 CAP CAPSULE PO SCH ×2 (09:24→20:41)
[2023-05-23] MEDS: levETIRAcetam 500 MG TABLET PO SCH ×3 (09:24→20:41)
[2023-05-23] MEDS: PHENYTOIN 100 MG CAPSULE PO SCH ×2 (09:24→20:41)
[2023-05-23] MEDS: METOPROLOL TARTRATE 25 MG TABLET PO SCH ×2 (09:25→20:41)
[2023-05-23] MEDS: DIPHENHYDRAMINE INJ 50 MG/ML VIAL IVP PRN ×2 (09:26→20:41)
[2023-05-23] MEDS: SACUBITRIL/VALSARTAN 24 MG-26 MG 1 TABLET PO SCH (09:34)
[2023-05-23] MEDS ORDERED: hydrALAZINE HCL 20 MG/ML VIAL IVP PRN (10:00)
[2023-05-23] MEDS: LORazepam 1 MG TABLET PO PRN (11:02)
[2023-05-23] MEDS ORDERED: LORazepam 2 MG/ML VIAL IVP PRN (19:30)
[2023-05-24] MEDS: LR 1,000 ML IV SCH ×3 (00:19→21:46)
[2023-05-24 01:11] VITALS: BP_SYST 156; PULSE 70; RESP 18; TEMP 97.8; O2SAT 98
[2023-05-24] MEDS: ONDANSETRON HCL 4 MG/2 ML VIAL IVP PRN ×4 (01:53→16:59)
[2023-05-24] MEDS: HYDROmorphone 1 MG/ML INJ. CARTRIDGE IVP PRN ×5 (01:53→21:26)
[2023-05-24 05:09] LABS: BASOPHILS % (AUTO) 0.8 % (0.0-2.0); EOSINOPHILS # (AUTO) 0.2 K/uL (0.0-0.4); EOSINOPHILS % (AUTO) 5.3 % (0.0-4.0); HEMATOCRIT 31.7 % (36-54); HEMOGLOBIN 10.3 g/dL (14.0-18.0); LYMPHOCYTES % (AUTO) 35.7 % (20.5-51.5); MEAN CORPUSCULAR HEMOGLOBIN 28 pg (27-31); MEAN CORPUSCULAR HGB CONC 33 % (32-36); MEAN CORPUSCULAR VOLUME 87 fL (79.0-98.0); MONOCYTES # (AUTO) 0.2 K/uL (0.0-1.0); NEUTROPHILS # (AUTO) 1.4 K/uL (1.8-7.7); NEUTROPHILS % (AUTO) 50.2 % (40.0-70.0); PLATELET COUNT (AUTO) 120 K/uL (130-430); RED BLOOD CELL COUNT(AUTO) 3.66 MIL/uL (4.2-6.2); RED CELL DISTRIBUTION WIDTH 17.5 % (9.0-15.0); WHITE BLOOD COUNT (AUTO) 2.9 K/uL (4.8-10.8)
[2023-05-24 05:33] LABS: ALBUMIN 2.5 g/dL (3.4-4.8); CALCIUM 9.6 mg/dL (8.4-11.0); CREATININE 0.66 mg/dL (0.55-1.30); POTASSIUM 3.2 mmol/L (3.5-5.1); TOTAL BILIRUBIN 0.5 mg/dL (0.0-1.0); TOTAL PROTEIN, SERUM 6.6 g/dL (6.4-8.3)
[2023-05-24 08:00] VITALS: O2SAT 99
[2023-05-24 08:01] VITALS: BP_SYST 160; PULSE 70; RESP 19; TEMP 97.7; O2SAT 97
[2023-05-24] MEDS: ERAVACYCLINE DI HYDROCHLORIDE IV SCH ×2 (08:21→21:46)
[2023-05-24] MEDS: NS IV SCH ×2 (08:21→21:46)
[2023-05-24] MEDS: PHENYTOIN 100 MG CAPSULE PO SCH ×3 (08:22→21:25)
[2023-05-24] MEDS: PANTOPRAZOLE SODIUM 40 MG/VIAL (PROTONIX) IVP SCH (08:23)
[2023-05-24] MEDS: levETIRAcetam 500 MG TABLET PO SCH ×2 (08:23→21:25)
[2023-05-24] MEDS: chlordiazePOXIDE HCL 25 MG CAPSULE PO SCH ×3 (08:23→21:25)
[2023-05-24] MEDS: LACTOBACILLUS RHAMNOSUS GG 1 CAP CAPSULE PO SCH ×2 (08:23→21:25)
[2023-05-24] MEDS: DIPHENHYDRAMINE INJ 50 MG/ML VIAL IVP PRN ×2 (08:24→21:25)
[2023-05-24] MEDS: METOPROLOL TARTRATE 25 MG TABLET PO SCH (08:26)
[2023-05-24] MEDS ORDERED: levETIRAcetam 500 MG TABLET PO ONE (10:00)
[2023-05-24] MEDS ORDERED: POTASSIUM CHLORIDE 20 MEQ TAB.PRT.SR PO ONE (10:00)
[2023-05-24] MEDS: LORazepam 1 MG TABLET PO PRN (10:56)
[2023-05-24] MEDS: SACUBITRIL/VALSARTAN 24 MG-26 MG 1 TABLET PO SCH (10:57)
[2023-05-24] MEDS ORDERED: amLODIPine BESYLATE 10 MG TABLET PO ONE (15:00)
[2023-05-24] MEDS ORDERED: THIAMINE HCL 100 MG TABLET PO ONE (17:00)
[2023-05-24 20:00] VITALS: BP_SYST 154; PULSE 66; RESP 18; TEMP 97.7; O2SAT 97
[2023-05-24 22:00] VITALS: O2SAT 97
[2023-05-25 01:15] VITALS: BP_SYST 145; PULSE 62; RESP 18; TEMP 97.1; O2SAT 98
[2023-05-25] MEDS: HYDROmorphone 1 MG/ML INJ. CARTRIDGE IVP PRN ×3 (01:37→11:19)
[2023-05-25] MEDS: ONDANSETRON HCL 4 MG/2 ML VIAL IVP PRN ×2 (01:37→11:19)
[2023-05-25 06:17] LABS: BASOPHILS # (AUTO) 0.1 K/uL (0.0-0.2); BASOPHILS % (AUTO) 0.9 % (0.0-2.0); EOSINOPHILS # (AUTO) 0.5 K/uL (0.0-0.4); EOSINOPHILS % (AUTO) 8.2 % (0.0-4.0); HEMATOCRIT 35.3 % (36-54); HEMOGLOBIN 11.5 g/dL (14.0-18.0); LYMPHOCYTES # (AUTO) 2.8 K/uL (1.0-5.5); LYMPHOCYTES % (AUTO) 41.9 % (20.5-51.5); MEAN CORPUSCULAR HEMOGLOBIN 28 pg (27-31); MEAN CORPUSCULAR HGB CONC 33 % (32-36); MEAN CORPUSCULAR VOLUME 87 fL (79.0-98.0); MONOCYTES # (AUTO) 0.9 K/uL (0.0-1.0); MONOCYTES % (AUTO) 14.1 % (1.7-9.3); NEUTROPHILS # (AUTO) 2.3 K/uL (1.8-7.7); NEUTROPHILS % (AUTO) 34.9 % (40.0-70.0); PLATELET COUNT (AUTO) 125 K/uL (130-430); RED BLOOD CELL COUNT(AUTO) 4.06 MIL/uL (4.2-6.2); RED CELL DISTRIBUTION WIDTH 17.3 % (9.0-15.0); WHITE BLOOD COUNT (AUTO) 6.6 K/uL (4.8-10.8)
[2023-05-25 06:35] LABS: CALCIUM 10.1 mg/dL (8.4-11.0); CREATININE 0.78 mg/dL (0.55-1.30); POTASSIUM 3.6 mmol/L (3.5-5.1)
[2023-05-25 07:55] VITALS: BP_SYST 155; PULSE 67; RESP 18; TEMP 97.2
[2023-05-25 08:00] VITALS: O2SAT 99
[2023-05-25] MEDS: NS IV SCH (08:56)
[2023-05-25] MEDS: ERAVACYCLINE DI HYDROCHLORIDE IV SCH (08:56)
[2023-05-25] MEDS: LACTOBACILLUS RHAMNOSUS GG 1 CAP CAPSULE PO SCH (08:57)
[2023-05-25] MEDS: PANTOPRAZOLE SODIUM 40 MG/VIAL (PROTONIX) IVP SCH (08:57)
[2023-05-25] MEDS: DIPHENHYDRAMINE INJ 50 MG/ML VIAL IVP PRN (08:58)
[2023-05-25] MEDS ORDERED: amLODIPine BESYLATE 10 MG TABLET PO SCH (09:00)
[2023-05-25] MEDS ORDERED: METOPROLOL SUCCINATE 50 MG TAB.SR.24H (TOPROL XL) PO SCH (09:00)
[2023-05-25] MEDS: chlordiazePOXIDE HCL 25 MG CAPSULE PO SCH (09:00)
[2023-05-25] MEDS: PHENYTOIN 100 MG CAPSULE PO SCH (09:00)
[2023-05-25] MEDS: levETIRAcetam 500 MG TABLET PO SCH (09:00)
[2023-05-25] MEDS ORDERED: THIAMINE HCL 100 MG TABLET PO SCH (09:00)
[2023-05-25] MEDS: LR 1,000 ML IV SCH (09:04)
[2023-05-25] MEDS: SACUBITRIL/VALSARTAN 24 MG-26 MG 1 TABLET PO SCH (09:27)
[2023-05-25] MEDS: LORazepam 1 MG TABLET PO PRN (09:29)
[2023-05-25] MEDS ORDERED: METO-542 PO (10:21)
[2023-05-25] MEDS ORDERED: LEVE500T9 PO (10:21)
[2023-05-25] MEDS ORDERED: ONDA4VIA52 PO (10:21)
[2023-05-25] MEDS ORDERED: Thiamine Hcl PO (10:21)
[2023-05-25] MEDS ORDERED: FOLI-43 PO (10:21)
[2023-05-25 14:03] VITALS: BP_SYST 144; PULSE 64; RESP 18; TEMP 97
== END 2023-05-25 14:05 | disposition home or self-care (01) | DRG 282 ==
LOC: SED 20:57 → STU 05-20 05:23 → SMU 05-22 16:33
PROVIDERS: ADMIT Specialist; ATTEND Specialist
DX: K85.20 Alcohol induced acute pancreatitis without necrosis or infection (principal); D69.6 Thrombocytopenia, unspecified; R65.10 Systemic inflammatory response syndrome (SIRS) of non-infectious origin without acute organ dysfunction; I42.6 Alcoholic cardiomyopathy; R71.0 Precipitous drop in hematocrit; I50.22 Chronic systolic (congestive) heart failure; E86.0 Dehydration; E87.1 Hypo-osmolality and hyponatremia; J45.909 Unspecified asthma, uncomplicated; E03.9 Hypothyroidism, unspecified; I10 Essential (primary) hypertension; G40.509 Epileptic seizures related to external causes, not intractable, without status epilepticus; F10.139 Alcohol abuse with withdrawal, unspecified; Y90.9 Presence of alcohol in blood, level not specified; E11.9 Type 2 diabetes mellitus without complications; E87.6 Hypokalemia; I49.9 Cardiac arrhythmia, unspecified; Z20.822 Contact with and (suspected) exposure to COVID-19; K21.9 Gastro-esophageal reflux disease without esophagitis; E83.42 Hypomagnesemia; Z88.1 Allergy status to other antibiotic agents; Z88.0 Allergy status to penicillin; Z91.018 Allergy to other foods; Z79.899 Other long term (current) drug therapy
CPT/HCPCS: 36415; 71045; 76376; 80048; 80053; 80185; 81000; 82330; 82542; 83690; 83735; 84484; 85025; 85610-TC; 85730-TC; 87230-TC; 93005; 96361; 96374; 96375; 99285; C9113; C9803; G0378; G0480; J0122; J0360; J1170; J1200; J1956; J2060; J2270; J2405; J3411; J3475; J3480; J3490; J7030; J7050; J7060

== ENCOUNTER 2023-06-28 03:00 | Emergency (ER) | payer MEDICAID ==
[~2023-06-28] VITALS: Ht 177.8 cm; Wt 99.8 kg
[~2023-06-28 03:00] MED LIST changes: +LEVE500T9 PO; -LEVE750T4 PO; -LIB25 PO; -LOSA100T24 PO; +METO-542 PO; -METO25TA6 PO; -NOR10 PO; +ONDA4VIA52 PO; +SACU1TAB PO; -SERT-436 PO; -VIS50 PO
[2023-06-28 03:11] VITALS: BP_SYST 130; PULSE 118; RESP 18; TEMP 98.3; O2SAT 95
[2023-06-28] MEDS ORDERED: LORazepam 2 MG/ML VIAL ONE (03:27)
[2023-06-28] MEDS ORDERED: NACL 0.9% 1,000 ML IV ONE (03:45)
[2023-06-28 04:28] LABS: BASOPHILS % (AUTO) 0.7 % (0.0-2.0); EOSINOPHILS # (AUTO) 0.2 K/uL (0.0-0.4); EOSINOPHILS % (AUTO) 2.5 % (0.0-4.0); HEMATOCRIT 40.1 % (36-54); HEMOGLOBIN 12.9 g/dL (14.0-18.0); LYMPHOCYTES # (AUTO) 2.1 K/uL (1.0-5.5); MEAN CORPUSCULAR HEMOGLOBIN 28 pg (27-31); MEAN CORPUSCULAR HGB CONC 32 % (32-36); MEAN CORPUSCULAR VOLUME 88 fL (79.0-98.0); MONOCYTES # (AUTO) 0.5 K/uL (0.0-1.0); MONOCYTES % (AUTO) 8.2 % (1.7-9.3); NEUTROPHILS # (AUTO) 3.8 K/uL (1.8-7.7); NEUTROPHILS % (AUTO) 57.6 % (40.0-70.0); PLATELET COUNT (AUTO) 285 K/uL (130-430); RED BLOOD CELL COUNT(AUTO) 4.55 MIL/uL (4.2-6.2); RED CELL DISTRIBUTION WIDTH 19.2 % (9.0-15.0); WHITE BLOOD COUNT (AUTO) 6.7 K/uL (4.8-10.8)
[2023-06-28 04:29] LABS: CALCIUM 9.2 mg/dL (8.4-11.0); CREATININE 0.73 mg/dL (0.55-1.30); POTASSIUM 3.1 mmol/L (3.5-5.1)
[2023-06-28 04:33] LABS: ALBUMIN 3.4 g/dL (3.4-4.8); TOTAL BILIRUBIN 0.3 mg/dL (0.0-1.0); TOTAL PROTEIN, SERUM 7.8 g/dL (6.4-8.3)
[2023-06-28] MEDS ORDERED: LORazepam 2 MG/ML VIAL IM ONE (04:45)
[2023-06-28] MEDS ORDERED: PANTOPRAZOLE SODIUM 40 MG/VIAL (PROTONIX) IVP ONE (04:45)
[2023-06-28] MEDS ORDERED: MORPHINE 2 MG/ML INJ. SYRINGE IVP ONE (04:45)
[2023-06-28] MEDS ORDERED: PHENYTOIN SODIUM 100 MG/2 ML VIAL (DILANTIN) IVP ONE (04:45)
[2023-06-28] MEDS ORDERED: levETIRAcetam 1,500 MG in NS 85 ML IV ONE (04:45)
[2023-06-28] MEDS ORDERED: FAMOTIDINE PF 20 MG/2 ML VIAL IVP ONE (04:45)
[2023-06-28] MEDS ORDERED: DIPHENHYDRAMINE INJ 50 MG/ML VIAL IVP ONE (04:45)
[2023-06-28] MEDS ORDERED: ONDANSETRON HCL 4 MG/2 ML VIAL IVP ONE (04:45)
[2023-06-28 04:51] LABS: BILIRUBIN,URINE NEGATIVE (NEGATIVE); BLOOD, URINE NEGATIVE (NEGATIVE); CLARITY/URINE CLEAR (CLEAR); COLOR,URINE YELLOW (YELLOW); GLUCOSE,URINE NEGATIVE (NEGATIVE); KETONES,URINE TRACE (NEGATIVE); LEUKOCYTE ESTERASE ,URINE NEGATIVE (NEGATIVE); NITRITE, URINE NEGATIVE (NEGATIVE); PROTEIN URINE TRACE (NEGATIVE); UROBILINOGEN,URINE 0.2 (0.2-1.0)
[2023-06-28 05:13] LABS: BARBITURATE, URINE NEGATIVE (NEG <=200); METHAMPHETAMINES SCREEN,URINE NEGATIVE (NEG <=500); URINE AMPHETAMINE NEGATIVE (NEG <=500)
[2023-06-28 05:14] LABS: BENZODIAZEPINE, URINE POSITIVE (NEG <=150); CANNABINOID, URINE NEGATIVE (NEG <=50); COCAINE, URINE NEGATIVE (NEG <=150); OPIATE, URINE NEGATIVE (NEG <=100); PHENCYCLIDINE SCREEN,URINE NEGATIVE (NEG <=25); UR TRICYCLIC ANTIDEPRESSANTS NEGATIVE (NEG <=300); URINE METHADONE NEGATIVE (NEG <=200); URINE OXYCODONE SCREEN NEGATIVE (NEG <=100); URINE PROPOXYPHENE SCREEN NEGATIVE (NEG <=300)
[2023-06-28 05:30] LABS: BACTERIA,URINE None Seen /HPF (None Seen); RBC,URINE 0-3 /HPF (0-3); WBC,URINE 0-3 /HPF (0-3)
[2023-06-28 08:00] VITALS: BP_SYST 129; PULSE 78; RESP 12; TEMP 97.7; O2SAT 96
== END 2023-06-28 09:26 | disposition left against medical advice (07) ==
LOC: SED 03:00
DX: R56.9 Unspecified convulsions (principal); R10.9 Unspecified abdominal pain; J45.909 Unspecified asthma, uncomplicated; E11.9 Type 2 diabetes mellitus without complications; I10 Essential (primary) hypertension; K21.9 Gastro-esophageal reflux disease without esophagitis; Z88.0 Allergy status to penicillin; Z88.1 Allergy status to other antibiotic agents; Z91.018 Allergy to other foods; Z79.899 Other long term (current) drug therapy
CPT/HCPCS: 99291; 96375; 96365; 96361; 80307; 80053; 83690; 85025; 36415; 93005; 96372; 81000; 81001; 81015; J1200; J3490; J1953; J2060; J2405; C9113; J1165; J2270; G0482

== ENCOUNTER 2023-12-09 03:28 | Emergency (ER) | payer MEDICAID ==
[~2023-12-09] VITALS: Ht 177.8 cm; Wt 97.5 kg
[~2023-12-09 03:28] MED LIST changes: +METO-306 PO; -METO-542 PO
[2023-12-09 03:37] VITALS: BP_SYST 145; PULSE 87; RESP 21; TEMP 97.9; O2SAT 100
[2023-12-09] MEDS ORDERED: OLANZapine 5 MG TAB.RAPDIS PO ONE (04:45)
[2023-12-09 04:46] LABS: BASOPHILS # (AUTO) 0.1 K/uL (0.0-0.2); BASOPHILS % (AUTO) 1.4 % (0.0-2.0); EOSINOPHILS # (AUTO) 0.2 K/uL (0.0-0.4); EOSINOPHILS % (AUTO) 2.3 % (0.0-4.0); HEMATOCRIT 38.8 % (36-54); HEMOGLOBIN 14.4 g/dL (14.0-18.0); LYMPHOCYTES % (AUTO) 59.3 % (20.5-51.5); MEAN CORPUSCULAR HEMOGLOBIN 32 pg (27-31); MEAN CORPUSCULAR HGB CONC 37 % (32-36); MEAN CORPUSCULAR VOLUME 86 fL (79.0-98.0); MONOCYTES # (AUTO) 0.4 K/uL (0.0-1.0); MONOCYTES % (AUTO) 5.7 % (1.7-9.3); NEUTROPHILS # (AUTO) 2.1 K/uL (1.8-7.7); NEUTROPHILS % (AUTO) 31.3 % (40.0-70.0); PLATELET COUNT (AUTO) 357 K/uL (130-430); RED BLOOD CELL COUNT(AUTO) 4.52 MIL/uL (4.2-6.2); RED CELL DISTRIBUTION WIDTH 16.6 % (9.0-15.0); WHITE BLOOD COUNT (AUTO) 6.7 K/uL (4.8-10.8)
[2023-12-09] MEDS ORDERED: OLANZapine 5 MG TABLET ONE (04:47)
[2023-12-09 05:03] LABS: CALCIUM 7.3 mg/dL (8.4-11.0); CREATININE 1.03 mg/dL (0.55-1.30); PHENYTOIN (DILANTIN) 6.3 ug/mL (10.0-20.0); POTASSIUM 3.7 mmol/L (3.5-5.1)
[2023-12-09 05:10] VITALS: BP_SYST 121; PULSE 81; RESP 18; TEMP 97.2; O2SAT 96
[2023-12-09 05:37] LABS: BARBITURATE, URINE POSITIVE (NEG <=200); BENZODIAZEPINE, URINE POSITIVE (NEG <=150); CANNABINOID, URINE NEGATIVE (NEG <=50); COCAINE, URINE NEGATIVE (NEG <=150); METHAMPHETAMINES SCREEN,URINE NEGATIVE (NEG <=500); OPIATE, URINE NEGATIVE (NEG <=100); PHENCYCLIDINE SCREEN,URINE NEGATIVE (NEG <=25); UR TRICYCLIC ANTIDEPRESSANTS NEGATIVE (NEG <=300); URINE AMPHETAMINE NEGATIVE (NEG <=500); URINE METHADONE NEGATIVE (NEG <=200); URINE OXYCODONE SCREEN NEGATIVE (NEG <=100)
== END 2023-12-09 05:09 | disposition left against medical advice (07) ==
LOC: SED 03:28
DX: R56.9 Unspecified convulsions (principal); I10 Essential (primary) hypertension; E11.9 Type 2 diabetes mellitus without complications; K21.9 Gastro-esophageal reflux disease without esophagitis; E03.9 Hypothyroidism, unspecified; Z88.0 Allergy status to penicillin; Z88.1 Allergy status to other antibiotic agents; Z91.018 Allergy to other foods
CPT/HCPCS: 99284; 70450; 80307; 80048; 80185; 85025; 36415; G0482

== ENCOUNTER 2024-05-08 18:21 | Emergency (ER) | payer MEDICAID ==
[~2024-05-08] VITALS: Ht 180.3 cm; Wt 83.9 kg
[~2024-05-08 18:21] MED LIST changes: +DIAZ5TAB PO; +LEVE1000 PO; +METO-304; +MULT-1089 PO; +PHEN50TA PO; +THIA100T70 PO
[2024-05-08 18:28] VITALS: BP_SYST 132; PULSE 110; RESP 18; TEMP 98.2; O2SAT 97
[2024-05-08 18:50] VITALS: TEMP 98.2
[2024-05-08] MEDS ORDERED: LORazepam 2 MG/ML VIAL ONE (18:57)
[2024-05-08] MEDS: NACL 0.9% 1,000 ML IV ONE (19:12)
[2024-05-08 19:25] LABS: BASOPHILS # (AUTO) 0.1 K/uL (0.0-0.2); BASOPHILS % (AUTO) 1.2 % (0.0-2.0); EOSINOPHILS # (AUTO) 0.6 K/uL (0.0-0.4); EOSINOPHILS % (AUTO) 5.2 % (0.0-4.0); HEMATOCRIT 33.4 % (36-54); HEMOGLOBIN 10.8 g/dL (14.0-18.0); LYMPHOCYTES # (AUTO) 4.1 K/uL (1.0-5.5); LYMPHOCYTES % (AUTO) 36.7 % (20.5-51.5); MEAN CORPUSCULAR HEMOGLOBIN 25 pg (27-31); MEAN CORPUSCULAR HGB CONC 32 % (32-36); MEAN CORPUSCULAR VOLUME 77 fL (79.0-98.0); MONOCYTES # (AUTO) 1.1 K/uL (0.0-1.0); MONOCYTES % (AUTO) 9.8 % (1.7-9.3); NEUTROPHILS # (AUTO) 5.2 K/uL (1.8-7.7); NEUTROPHILS % (AUTO) 47.1 % (40.0-70.0); PLATELET COUNT (AUTO) 504 K/uL (130-430); RED BLOOD CELL COUNT(AUTO) 4.36 MIL/uL (4.2-6.2); RED CELL DISTRIBUTION WIDTH 19.4 % (9.0-15.0); WHITE BLOOD COUNT (AUTO) 11.1 K/uL (4.8-10.8)
[2024-05-08 19:26] LABS: BILIRUBIN,URINE NEGATIVE (NEGATIVE); BLOOD, URINE NEGATIVE (NEGATIVE); CLARITY/URINE CLEAR (CLEAR); GLUCOSE,URINE NEGATIVE (NEGATIVE); KETONES,URINE NEGATIVE (NEGATIVE); LEUKOCYTE ESTERASE ,URINE NEGATIVE (NEGATIVE); NITRITE, URINE NEGATIVE (NEGATIVE); PROTEIN URINE NEGATIVE (NEGATIVE); UROBILINOGEN,URINE 0.2 (0.2-1.0)
[2024-05-08] MEDS: LORazepam 2 MG/ML VIAL IVP ONE (19:33)
[2024-05-08 19:45] LABS: COLOR,URINE STRAW (YELLOW)
[2024-05-08] MEDS: levETIRAcetam 500 MG TABLET PO ONE (19:56)
[2024-05-08] MEDS: levETIRAcetam 1,000 MG IV BAG 100 ML IV ONE (19:56)
[2024-05-08 20:14] LABS: ALBUMIN 3.6 g/dL (3.4-4.8); BILIRUBIN,DIRECT 0.1 mg/dL (0.0-0.3); CALCIUM 9.3 mg/dL (8.4-11.0); CREATININE 0.83 mg/dL (0.55-1.30); TOTAL BILIRUBIN 0.1 mg/dL (0.0-1.0); TOTAL PROTEIN, SERUM 8.2 g/dL (6.4-8.3)
[2024-05-08 20:15] VITALS: BP_SYST 121; PULSE 99; RESP 34; O2SAT 99
== END 2024-05-08 20:15 | disposition left against medical advice (07) ==
LOC: SED 18:21
DX: R56.9 Unspecified convulsions (principal); R11.2 Nausea with vomiting, unspecified; J45.909 Unspecified asthma, uncomplicated; E11.9 Type 2 diabetes mellitus without complications; I10 Essential (primary) hypertension; K21.9 Gastro-esophageal reflux disease without esophagitis; E03.9 Hypothyroidism, unspecified; Z88.0 Allergy status to penicillin; Z88.1 Allergy status to other antibiotic agents; Z88.6 Allergy status to analgesic agent; Z91.018 Allergy to other foods; Z79.899 Other long term (current) drug therapy; Z79.2 Long term (current) use of antibiotics
CPT/HCPCS: 99283; 96360; 80076; 80048; 81001; 83690; 85025; 36415; 96372; 81003; J2060; J7030; J1953